=== PATIENT | female | born 1930 | race Caucasian/White ===

== ENCOUNTER 2019-01-09 06:49 | Emergency (ER) | payer MEDICARE ==
[~2019-01-09] VITALS: Ht 165.1 cm; Wt 77.1 kg
--- OUTSIDE RECORDS SUMMARY | ~2019-01-09 | XMS | Encounter Summary ---
Demographics + + + | Address | [address] | | | [place] [address] | + + + | Home Phone | | + + + | Preferred Language | Unknown | + + + | Marital Status | Single | + + + | Shinto Affiliation | Unknown | + + + | Race | Unknown | + + + | Ethnic Group | Other Race | + + + Author + + + | Author | [facility] | + + + | Organization | [facility] | + + + | Address | Unknown | + + + | Phone | Unavailable | + + + Support + + +---------+ + | Name | Relationship | Address | Phone | + + +---------+ + | None None | ECON | Unknown | Unavailable | + + +---------+ + Care Team Providers + +------+ + | Care High Rigger Name | Role | Phone | + +------+ + PCP | Unavailable | + +------+ + Encounter Details +--------+ + + + + | Date | Type | Department | Care Team | Description | +--------+ + + + + | 12/11/ | Procedure - | Epic at [facility] | Amy | Operative Report | | 2015 | | [address] | MD Curly [address] | | | | Transcribed | [place], [place] | [place], [place] | | | | | [phone] | [address] | | | | | | | | +--------+ + + + + Social History + +-------+ +--------+------+ | Tobacco Use | Types | Packs/Day | Years | Date | | | | | Used | | + +-------+ +--------+------+ | Never Assessed | | | | | + +-------+ +--------+------+ + + + | Sex Assigned at | Date Recorded | | | | + + + | Not on file | | + + + + + + + | Job Start Date | Occupation | Industry | + + + + | Not on file | Not on file | Not on file | + + + + + + + + | Travel History | Travel Start | Travel End | + + + + + + | No recent travel history available. | + + documented as of this encounter Plan of Treatment Not on filedocumented as of this encounter Procedures + +--------+ + + + | Procedure Name | Priori | Date/Time | Associated Diagnosis | Comments | | | ty | | | | + +--------+ + + + | OPERATION RECORD | | 12/11/2014 | | Results for this | | | | 9:31 AM | | procedure are in the | | | | PDT | | results section. | + +--------+ + + + | OPERATION RECORD | | 12/11/2014 | | Results for this | | | | 9:13 AM | | procedure are in the | | | | PDT | | results section. | + +--------+ + + + documented in this encounter Results OPERATION RECORD (12/11/2014 9:31 AM PDT) + + | Procedure Note | + + | Lynne Crawford In - 11/02/2016 9:31 AM PDT SURGEON: Burton Álvarez, | | MDASSISTANT: None.ANESTHESIOLOGIST: KRUPA RossiREOPERATIVE | | DIAGNOSISCataract, right eye.POSTOPERATIVE DIAGNOSISCataract, right eye.OPERATIVE | | PROCEDUREPhacoemulsification with insertion of posterior chamber intraocular lens, | | righteye.ANESTHESIA: MAC with topical.COMPLICATIONS: None.INDICATIONS FOR PROCEDURE: | | The patient has a visually significant cataract. The risks, benefits and alternatives of | | the procedure were discussed. Informed consent was obtained.DESCRIPTION OF PROCEDUREThe | | [facility] The | | patient was placed in the supine position. Monitored anesthesiacare with pharmacologic | | support was induced. The operative eye was prepped and draped in the usual | | sterilefashion for intraocular surgery. A lid speculum was placed on theright eye.A | | Supersharp blade was used to create a paracentesis at the 11 o'clock position.Endocoat | | was injected in the anterior chamber. A 2.50-mm microkeratome blade wasused to create a | | temporal clear corneal incision. A cystitome and Utrata forcepswere used to create a | | continuous curvilinear capsulorrhexis.The Amezcua cannula with BSS was used to | | hydrodissect and hydrodelineate the lens.The phacoemulsification handpiece was used to | | remove the lens. Residual cortexwas removed using the irrigation and aspiration | | handpiece. Viscoelastic wasinjected in the capsular bag. A 20.5D SN60WF lens was | | injected in thecapsular bag. Residual viscoelastic was removed using the irrigation | | andaspiration handpiece.The wounds were hydrated and found to be watertight. 0.1 ml of a | | 1:1 mixture of 0.5% preservative free moxifloxacin and balanced salt solution was | | injected into the anterior chamber. The lid speculum wasremoved and the patient's face | | was cleaned and dried. A clear shield was taped over the eye.The patient was returned to | | the recovery room in good condition. | | Burton Álvarez MD | | | | | | | |ANESTHESIA: MAC with topical. | | | |COMPLICATIONS: None. | | | |INDICATIONS FOR PROCEDURE: The patient has a visually significant cataract. The risks, bene fits and alternatives of the procedure were discussed. Informed consent was obtained. | | | | | | | |DESCRIPTION OF PROCEDURE | | | |The patient was brought to the operating room at the [facility] | | | |Center. The patient was placed in the supine position. Monitored anesthesia | | | |care with pharmacologic support was induced. The operative eye was prepped and draped in th e usual sterilefashion for intraocular surgery. A lid speculum was placed on the | | | |right eye. | | | | | | | |A Supersharp blade was used to create a paracentesis at the 11 o'clock position. | | | |Endocoat was injected in the anterior chamber. A 2.50-mm microkeratome blade was | | | |used to create a temporal clear corneal incision. A cystitome and Utrata forceps | | | |were used to create a continuous curvilinear capsulorrhexis. | | | | | | | |The Amezcua cannula with BSS was used to hydrodissect and hydrodelineate the lens. | | | |The phacoemulsification handpiece was used to remove the lens. Residual cortex | | | |was removed using the irrigation and aspiration handpiece. Viscoelastic was | | | |injected in the capsular bag. A 20.5D SN60WF lens was injected in the | | | |capsular bag. Residual viscoelastic was removed using the irrigation and | | | |aspiration handpiece. | | | | | | | |The wounds were hydrated and found to be watertight. 0.1 ml of a 1:1 mixture of 0.5% preser vative free moxifloxacin and balanced salt solution was injected into the anterior chamber. The lid speculum was | | | |removed and the patient's face was cleaned and dried. A clear shield was taped over the eye . | | | | | | | |The patient was returned to the recovery room in good condition. | | | | | | | | | | | | | | | | Burton Álvarez MD | + + OPERATION RECORD (12/11/2014 9:13 AM PDT) + + | Procedure Note | + + | Service Account, Cc Doc In - 11/02/2016 9:31 AM PDT Patient: JESSE BURNETT | | Age: 84 years Sex: Female : 1930 | | Associated Diagnoses: None Author: Curly Reyes MD Basic Information 84 | | yo woman for rt IOL. Hx of htn and hypothyroidism. On levothyroxine andlosartan. | | Review of Systems Respiratory: Negative. Cardiovascular: neg cp or sob. Health | | Status Allergies: Allergic Reactions (Selected)ModerateAspirin- Unknown.Severity Not | | DocumentedAzopt- Unknown.Nonsteroidal antiinflammatory agent- No reactions were | | documented.NSAIDs- Unknown.Timolol- Unknown.Xalatan- Unknown. Current medications: | | (Selected) Inpatient MedicationsOrderedCombo #3 Dilation Drops: 1 drop(s), Soln, OPTH, | | UD, Start date 12/11/14 6:13:00 PDT, 2, dose(s)Combo #3 Dilation Drops: 1 drop(s), Soln, | | OPTH, UD, Start date 12/11/14 6:13:00 PDT, 2, dose(s)Compazine Inj Negar*: 10 mg, Inj, IV | | Push, Once, PRN Nausea/Vomiting, Moderate, PRN Preference N/A, Start date 12/11/14 | | 9:09:00 PDT, 8 hr, Stop date 12/11/14 17:08:00 PDTDemerol Inj Negar*: 12.5 mg, Inj, IV | | Push Procedural, q5min, PRN Pain, Moderate, PRN Preference N/A, Start date 12/11/14 | | 9:09:00 PDT, 8 hr, Stop date 12/11/14 17:08:00 PDTDemerol Inj Negar*: 25 mg, Inj, IV Push | | Procedural, q5min,PRN Pain, Severe, PRN Preference N/A, Start date 12/11/14 9:09:00 PDT, | | 8 hr, Stop date 12/11/14 17:08:00 PDTDemerol Inj Negar: 12.5 mg, Inj, IV Push, UD, PRN | | Shivering, Start date 12/11/14 9:09:00 PDT, Duration 8 hr, Stop date 12/11/14 17:08:00 | | PDTDilaudid Inj Negar*: 0.2 mg, Syringe, IV Push Procedural, q5min, PRN Pain, Mild, PRN | | Preference N/A, Start date 12/11/14 9:09:00 PDT, 8 hr, Stop date 12/11/14 17:08:00 | | PDTDilaudid Inj Negar*: 0.5 mg, Syringe, IV Push Procedural, q5min, PRN Pain, Moderate, | | PRN Preference N/A, Start date 12/11/14 9:09:00 PDT, 8 hr, Stop date 12/11/14 17:08:00 | | PDTEMLA Crm ([facility] Sub: Lido 4%): 1 elieser, Cream, TOP, UD, PRN, Other (see comment), Start | | date 12/11/14 8:28:00 PDT, 1, dose(s), Stop date Limited # of timesLactated Ringers IV | | Negar 1,000 mL: 1,000 mL, IV, 10 mL/hr, Start date 12/11/14 8:28:00 PDTLactated Ringers IV | | Negar 1,000 mL: 1,000 mL, IV, 100 mL/hr, Start date 12/11/14 9:09:00 PDT, Intermittent | | Constant Rate IndLactated Ringers IV Negar 500 mL: 500 mL, IV, Start date 12/11/14 6:13:00 | | PDT, TKO, Intermittent Constant Rate IndNaCl 0.9% Flush: as directed, Syringe, IV Push, | | UD, PRN,Line Patency, Start date 12/11/14 8:28:00 PDTPhenergan Inj Negar*: 6.25 mg, Inj, | | IV Push, Once, PRN Nausea/Vomiting, Moderate, PRN Preference N/A, Start date 12/11/14 | | 9:09:00 PDT, 8 hr, Stop date 12/11/14 17:08:00 PDTReglan Inj Negar*: 10 mg, Inj, IV Push, | | Once, PRN Nausea/vomiting,PRN Preference N/A, Start date 12/11/14 9:09:00 PDT, 8 hr, | | Stop date 12/11/14 17:08:00 PDTSodium Chloride 0.9% Flush: 30 mL, Syringe, IV Push, UD, | | PRN, Line Patency, Start date 12/11/14 9:01:00 PDTSublimaze Inj Negar*: 12.5 mcg, Inj, IV | | Push Procedural, q5min, PRN Pain, Mild, PRN Preference N/A, Start date 12/11/14 9:09:00 | | PDT, 8 hr, Stop date 12/11/14 17:08:00 PDTSublimaze Inj Negar*: 25 mcg, Inj, IV Push | | Procedural, q5min, PRN Pain, Moderate, PRN Preference N/A, Start date 12/11/14 9:09:00 | | PDT, 8 hr, Stop date 12/11/14 17:08:00 PDTSublimaze Inj Negar*: 50 mcg, Inj, IV Push | | Procedural, q5min, PRN Pain, Severe, PRN Preference N/A, Start date 12/11/14 9:09:00 | | PDT, 8 hr, Stop date 12/11/14 17:08:00 PDTVigamox 0.5% - BSS 1:1 Opth Soln: 0.2 mL, | | Soln, OPTH, UD, Start date 12/11/14 6:13:00 PDTXylocaine 1% HCI Inj Negar (use for IV | | start): 0.5mL, Vial, ID, UD, PRN, Other (see comment), Start date 12/11/14 8:28:00 | | PDTZofran Inj Negar*: 4 mg, Inj, IV Push, Once, PRN Nausea/vomiting, PRN Preference N/A, | | Start date 12/11/14 9:09:00 PDT, 8 hr, Stop date 12/11/14 17:08:00 PDTalbuterol 0.083% | | neb for inhalation: 2.5 mg, Soln,NEB, Once, PRN Shortness of breath, Start date 12/11/14 | | 9:09:00 PDT, Duration 8 hr, Stop date 12/11/14 17:08:00 PDTbupivacaine 0.75% PF Opth | | Drop: 1 drop(s), Soln, OPTH, UD, Start date 12/11/14 6:13:00 PDTbupivacaine 0.75% PF | | Opth Drop: 1 drop(s), Soln, OPTH, UD, Start date 12/11/14 6:13:00 PDTlabetalol Inj Negar: | | 5 mg, Inj, IV Push, q5min, PRN hypertension, Start date 12/11/14 9:09:00 PDT, Duration 8 | | dose(s), Stop date Limited # of timesmorphine Inj Negar*: 1 mg, Syringe, IV Push | | Procedural, q5min, PRN Pain, Mild, PRN Preference N/A, Start date 12/11/14 9:09:00 PDT, | | 8 hr, Stop date 12/11/14 17:08:00 PDTmorphine Inj Negar*: 2 mg, Syringe, IV Push | | Procedural, q5min, PRN Pain, Moderate, PRN Preference N/A, Start date 12/11/14 9:09:00 | | PDT, 8 hr, Stop date 12/11/14 17:08:00 PDTmorphine Inj Negar*: 3 mg, Syringe, IV Push | | Procedural, q5min,PRN Pain, Severe, PRN Preference N/A, Start date 12/11/14 9:09:00 PDT, | | 8 hr, Stop date 12/11/14 17:08:00 PDTscopolamine 1.5 mg transdermal film, extended | | release: 1.5 mg, Patch, TD, Once, PRN Nausea/vomiting, Start date 12/11/14 8:28:00 | | PDTDocumented MedicationsDocumentedFlax Seed Oil: Oral, BID, MaintenanceLutein 20 mg | | oral capsule: 1 cap, Oral, Bedtime, MaintenanceVitamin B-12 1000 mcg oral tablet: 1 tab, | | Oral, Daily, MaintenanceZinc: See Instructions, Maintenance, 30 mg Oral MWFcalcium | | carbonate 1000 mg oral tablet, chewable: Chewed, q2hr, Maintenancelevothyroxine 50 mcg | | (0.05 mg) oral tablet: 1 tab, Oral, Daily, Maintenancelosartan 50 mg oral tablet: 1 tab, | | Oral, BID, Maintenance Physical Examination VS/Measurements Vital Signs/Measurement | | Progress Note-PN 12/11/2014 08:42 PDTPrimary Pain Wcucilpyb294/15/2015 08:07 | | PDTHeight/Length Ksgdhxkw663 cmWeight Ticpsbqd61.3 kgTemperature Temporal Aylydt46.4 | | DegCPeripheral Pulse Rate66 bpmRespiratory Rate16 breaths/minuteSystolic Blood | | Sirhzkdk176 mmHg HIDiastolic Blood Btvcavxk59 mmHgMean Arterial Pressure, Xkzd732 | | xkTqCiL260 % , Vitals Temp BP MAP Pulse RR SpO2 HAE566/15 08:07 36.4 155/82 106 66 16 | | 98% ---Vital Signs are the last 20 in the past 24 hours. , Measurements from flowsheet : | | Measurements 12/11/201408:07 PDTHeight/Length Klfgvlbh848 cmWeight Qmksmagx12.3 | | kgKilograms to sufraj891.4 lbWeight Ywtuic73.3 kgBody Mass Index Rfbdnokx44.55 | | kg/m212/10/2014 14:14 PDTUsual Wiiuxu531 cmUsual Monjib90.57 kg Airway: Mallampati | | classification: I. Distance: Adequate. Mouth: Dentures ( Upper and lower dentures | | ). Respiratory: Lungs are clear to auscultation. Cardiovascular: Regular rhythm. | | Class 3 - Severe systemic disease Plan Anesthesia: Anesthesia MAC. Additional Info | | Anesthetic Plan Discussed, and Patient appears to understand. Risks Discussed Nausea, | | and Vomiting. Consent Informed consent was given. | | | |NaCl 0.9% Flush: as directed, Syringe, IV Push, UD, PRN,Line Patency, Start 12/11/14 8 :28:00 PDT | | | |Phenergan Inj Negar*: 6.25 mg, Inj, IV Push, Once, PRN Nausea/Vomiting, Moderate, PRN Prefere nce N/A, Start date 12/11/14 9:09:00 PDT, 8 hr, Stop date 12/11/14 17:08:00 PDT | | | |Reglan Inj Negar*: 10 mg, Inj, IV Push, Once, PRN Nausea/vomiting,PRN Preference N/A, Start d 12/11/14 9:09:00 PDT, 8 hr, Stop date 12/11/14 17:08:00 PDT | | | |Sodium Chloride 0.9% Flush: 30 mL, Syringe, IV Push, UD, PRN, Line Patency, Start 11/27 9:01:00 PDT | | | |Sublimaze Inj Negar*: 12.5 mcg, Inj, IV Push Procedural, q5min, PRN Pain, Mild, PRN Preferenc e N/A, Start date 12/11/14 9:09:00 PDT, 8 hr, Stop date 12/11/14 17:08:00 PDT | | | |Sublimaze Inj Negar*: 25 mcg, Inj, IV Push Procedural, q5min, PRN Pain, Moderate, PRN Prefere nce N/A, Start 12/11/14 9:09:00 PDT, 8 hr, Stop date 12/11/14 17:08:00 PDT | | | |Sublimaze Inj Negar*: 50 mcg, Inj, IV Push Procedural, q5min, PRN Pain, Severe, PRN Preferenc e N/A, Start date 12/11/14 9:09:00 PDT, 8 hr, Stop date 12/11/14 17:08:00 PDT | | | |Vigamox 0.5% - BSS 1:1 Opth Soln: 0.2 mL, Soln, OPTH, UD, Start date 12/11/14 6:13:00 PDT | | | |Xylocaine 1% HCI Inj Negar (use for IV start): 0.5mL, Vial, ID, UD, PRN, Other (see comment), Start date 12/11/14 8:28:00 PDT | | | |Zofran Inj Negar*: 4 mg, Inj, IV Push, Once, PRN Nausea/vomiting, PRN Preference N/A, Start d ate 12/11/14 9:09:00 PDT, 8 hr, Stop date 12/11/14 17:08:00 PDT | | | |albuterol 0.083% neb for inhalation: 2.5 mg, Soln,NEB, Once, PRN Shortness of breath, Start date 12/11/14 9:09:00 PDT, Duration 8 hr, Stop date 12/11/14 17:08:00 PDT | | | |bupivacaine 0.75% PF Opth Drop: 1 drop(s), Soln, OPTH, UD, Start date 12/11/14 6:13:00 PDT | | | |bupivacaine 0.75% PF Opth Drop: 1 drop(s), Soln, OPTH, UD, Start date 12/11/14 6:13:00 PDT | | | |labetalol Inj Negar: 5 mg, Inj, IV Push, q5min, PRN hypertension, Start date 12/11/14 9:09:00 PDT, Duration 8 dose(s), Stop date Limited # of times | | | |morphine Inj Negar*: 1 mg, Syringe, IV Push Procedural, q5min, PRN Pain, Mild, PRN Preference N/A, Start date 12/11/14 9:09:00 PDT, 8 hr, Stop date 12/11/14 17:08:00 PDT | | | |morphine Inj Negar*: 2 mg, Syringe, IV Push Procedural, q5min, PRN Pain, Moderate, PRN Prefer ence N/A, Start date 12/11/14 9:09:00 PDT, 8 hr, Stop date 12/11/14 17:08:00 PDT | | | |morphine Inj Negar*: 3 mg, Syringe, IV Push Procedural, q5min,PRN Pain, Severe, PRN Preferenc e N/A, Start date 12/11/14 9:09:00 PDT, 8 hr, Stop date 12/11/14 17:08:00 PDT | | | |scopolamine 1.5 mg transdermal film, extended release: 1.5 mg, Patch, TD, Once, PRN Nausea/ vomiting, Start date 12/11/14 8:28:00 PDT | | | |Documented Medications | | | |Documented | | | |Flax Seed Oil: Oral, BID, Maintenance | | | |Lutein 20 mg oral capsule: 1 cap, Oral, Bedtime, Maintenance | | | |Vitamin B-12 1000 mcg oral tablet: 1 tab, Oral, Daily, Maintenance | | | |Zinc: See Instructions, Maintenance, 30 mg Oral MWF | | | |calcium carbonate 1000 mg oral tablet, chewable: Chewed, q2hr, Maintenance | | | |levothyroxine 50 mcg (0.05 mg) oral tablet: 1 tab, Oral, Daily, Maintenance | | | |losartan 50 mg oral tablet: 1 tab, Oral, BID, Maintenance | | | | | | | |Physical Examination | | | |VS/Measurements | | | |Vital Signs/Measurement Progress Note-PN | | | |12/11/2014 08:42 PDTPrimary Pain Hpozjmbpe892/15/2015 08:07 PDTHeight/Length Acpqvxpe429 cm Weight Jkxvszuw13.3 kgTemperature Temporal Avfysh54.4 DegCPeripheral Pulse Rate66 bpmRespira tory Rate16 | |breaths/minuteSystolic Blood Gkdulxiy147 mmHg HIDiastolic Blood Sjipmcqo77 mmHgMean Arteri al Pressure, Hhed771 ztWpRcQ168 % | | | |, | | | |Vitals Temp BP MAP Pulse RR SpO2 FIO2 | | | |12/11 08:07 36.4 155/82 106 66 16 98% --- | | | |Vital Signs are the last 20 in the past 24 hours. | | | | | | | | , Measurements from flowsheet : Measurements | | | |12/11/201408:07 PDTHeight/Length Dwjflaza546 cmWeight Pltrebjk22.3 kgKilograms to .4 lbWeight Fnrfjh77.3 kgBody Mass Index Airqvzyt64.55 kg/m212/10/2014 14:14 PDTUsual Height 163 cmUsual Hiezhq96.57 kg | | | | | | | |Airway: | | | | Mallampati classification: I. | | | | Distance: Adequate. | | | | Mouth: Dentures ( Upper and lower dentures ). | | | |Respiratory: Lungs are clear to auscultation. | | | |Cardiovascular: Regular rhythm. | | | |Class 3 - Severe systemic disease | | | | | | | |Plan | | | |Anesthesia: | | | |Anesthesia MAC. | | | |Additional Info Anesthetic Plan Discussed, and Patient appears to understand. | | | |Risks Discussed Nausea, and Vomiting. | | | |Consent Informed consent was given. | + + documented in this encounter Visit Diagnoses Not on filedocumented in this encounter"
--- OUTSIDE RECORDS SUMMARY | ~2019-01-09 | XMS | Encounter Summary ---
Demographics + + + | Address | [address] | | | [place] [address] | + + + | Home Phone | | + + + | Preferred Language | Unknown | + + + | Marital Status | Single | + + + | Congregation Affiliation | Unknown | + + + | Race | Unknown | + + + | Ethnic Group | Other Race | + + + Author + + + | Organization | Unknown | + + + | Address | Unknown | + + + | Phone | Unavailable | + + + Support + + +---------+ + | Name | Relationship | Address | Phone | + + +---------+ + | None None | ECON | Unknown | Unavailable | + + +---------+ + Care Team Providers + +------+ + | Care Manager Culture Name | Role | Phone | + +------+ + PCP | Unavailable | + +------+ + Encounter Details +--------+ + + + + | Date | Type | Department | Care Team | Description | +--------+ + + + + | 08/11/ | [facility] | | | | | 2005 | Document-Sc | | | | | | anned | | | | +--------+ + + [...] Not on filedocumented as of this encounter Visit Diagnoses Not on filedocumented in this encounter"
--- OUTSIDE RECORDS SUMMARY | ~2019-01-09 | XMS | Encounter Summary ---
Demographics + + + | Address | [address] | | | [place] [address] | + + + | Home Phone | | + + + | Preferred Language | Unknown | + + + | Marital Status | Single | + + + | Protestant Affiliation | Unknown | + + + [...] Team Providers + +------+ + | Care Banquet Set Up Person Name | Role | Phone | + +------+ + PCP | Unavailable | + +------+ + Encounter Details +--------+ + + + + | Date | Type | Department | Care Team | Description | +--------+ + + + + | 09/22/ | [facility] | | | | | [...]
--- OUTSIDE RECORDS SUMMARY | ~2019-01-09 | XMS | Clinical Summary ---
Demographics + + + | Address | [address] | | | [place] [address] | + + + | Home Phone | | + + + | Preferred Language | Unknown | + + + | Marital Status | Single | + + + | Zoroastrian Affiliation | Unknown | + + + | Race | Unknown | + + + | Ethnic Group | Other Race | + + + Author + + + | Author | [facility] | + + + | Organization | [facility] | + + + | Address | Unknown | + + + | Phone | Unavailable | + + + Support + + +---------+ + | Name | Relationship | Address | Phone | + + +---------+ + | None None | ECON | Unknown | Unavailable | + + +---------+ + Care Team Providers + +------+ + | Care Admissions Specialist Name | Role | Phone | + +------+ + PCP | Unavailable | + +------+ + Source Comments [facility] is fully live on both [facility] and [facility] InPatient.[facility] Allergies + + + + + + | Active Allergy | Reactions | Severity | Noted | Comments | | | | | Date | | + + + + + + | Clarification Needed | | | 10/12/19 | Anti | | | | | 06 | inflammatories. Skin | | | | | | | | | | | | Rashes/Hives;Nausea/ | | | | | | Vomiting/Diarrhea | + + + + + + Medications Not on file Active Problems +---------+ + | Problem | Noted Date | +---------+ + | Anemia | 09/27/2005 | +---------+ + + + | Overview: | | Primary | | diagnosis | | | | ICD10 | + + Social History + +-------+ +--------+------+ [...] recent travel history available. | + + Last Filed Vital Signs Not on file Plan of Treatment + + + + + | Health Maintenance | Due Date | Last Done | Comments | + + + + + | Pneumococcal | | | | | vaccination (1 of 2 | 5 | | | | - PCV13) | | | | + + + + + | Influenza (Flu) | | | | | vaccination (#1) | 9 | | | + + + + + Results Not on filefrom Last 3 Months Insurance + +--------+ +--------+ + +------+ | Payer | Benefi | Subscriber | Effect | Phone | Address | Type | | | t Plan | ID | lianna | | | | | | / | | Dates | | | | | | Group | | | | | | + +--------+ +--------+ + +------+ | [employer] | PROVID | xxxxxxxxxxx | | [phone] | [address] | HMO | | | [place] | | [phone] | | | [address] | | esent | | [place], | | | | | | | | [place] [address] | | | | MEDICA | | | | | | | | RE | | | | | | + +--------+ +--------+ + +------+ + +--------+ +--------+ + + | Guarantor Name | Accoun | Relation to | Date | Phone | Billing Address | | | t Type | Patient | of | | | | | | | | | | + +--------+ +--------+ + + | Sarina Zimmerman I | Person | Self [birth year] | [address] | | | al/Fam | | 1931 | [phone] | [place] | | | [place]a | | | [address] ([place]) | [address] | + +--------+ +--------+ + +"
--- OUTSIDE RECORDS SUMMARY | ~2019-01-09 | XMS | Encounter Summary ---
Demographics + + + | Address | [address] | | | [place] [address] | + + + | Home Phone | | + + + | Preferred Language | Unknown | + + + | Marital Status | Single | + + + | Christian Affiliation | Unknown | + + + | Race | Unknown | + + + | Ethnic Group | Other Race | + + + Author + + + | Author | [facility] | + + + | Organization | [facility] | + + + | Address | Unknown | + + + | Phone | Unavailable | + + + Support + + +---------+ + | Name | Relationship | Address | Phone | + + +---------+ + | None None | ECON | Unknown | Unavailable | + + +---------+ + Care Team Providers + +------+ + | Care Hand Singer Name | Role | Phone | + +------+ + PCP | Unavailable | + +------+ + Encounter Details +--------+ + + + + | Date | Type | Department | Care Team | Description | +--------+ + + + + | 07/18/ | Ancillary | [facility] | | | | 2005 | Registratio | Practice [address] | | | | | n | [facility] | | | | | | [place] [address] | | | | | | [phone] | | | +--------+ + + + [...]
--- OUTSIDE RECORDS SUMMARY | ~2019-01-09 | XMS | Encounter Summary ---
Demographics + + + | Address | [address] | | | [place] [address] | + + + | Home Phone | | + + + | Preferred Language | Unknown | + + + | Marital Status | Single | + + + | Synagogue Affiliation | Unknown | + + + | Race | Unknown | + + + | Ethnic Group | Other Race | + + + Author + + + | Author | [facility] | + + + | Organization | [facility] | + + + | Address | Unknown | + + + | Phone | Unavailable | + + + Support + + +---------+ + | Name | Relationship | Address | Phone | + + +---------+ + | None None | ECON | Unknown | Unavailable | + + +---------+ + Care Team Providers + +------+ + | Care Graphics Intern Name | Role | Phone | + +------+ + PCP | Unavailable | + +------+ + Encounter Details +--------+ + + + + | Date | Type | Department | Care Team | Description | +--------+ + + + + | 07/18/ | Ancillary | [facility] | | | | 2005 | Registratio | Practice [address] | | | | | n | [facility] | | | | | | [place] [address] | | | | | | [phone] | | | +--------+ + + + [...]
--- OUTSIDE RECORDS SUMMARY | ~2019-01-09 | XMS | Encounter Summary ---
Demographics + + + | Address | [address] | | | [place] [address] | + + + | Home Phone | | + + + | Preferred Language | Unknown | + + + | Marital Status | | + + + | Islam Affiliation | Unknown | + + + | Race | Unknown | + + + | Ethnic Group | Unknown | + + + Author + + + | Author | [facility] | | | and [place] | + + + | Organization | [facility] | | | and [place] | + + + | Address | Unknown | + + + | Phone | Unavailable | + + + Support + + + + + | Name | Relationship | Address | Phone | + + + + + | Kaley Zimmerman | ECON | [place] | | | | | [address] | | + + + + + Care Team Providers + +------+ + | Care Mergers And Acquisitions Banker Name | Role | Phone | + +------+ + | Seun Bojorquez MD | PCP | | + +------+ + Reason for Visit +--------+ + | Reason | Comments | +--------+ + | Other | Needs appointment, declined plans to see Cardiac Exercise Specialist in | | | [place] | +--------+ + Encounter Details +--------+ + + + + | Date | Type | Department | Care Team | Description | +--------+ + + + + | 12/25/ | Telephone | [facility] | Aurelio Ceballos MD | Other (Needs | | 2019 | | CARDIOLOGY [address] | appointment, | | | | [place], | [place] | declined plans to | | | | [place] [address] | [address] | see Cardiac Exercise Specialist in | | | | [phone] | | [place]) | +--------+ + + + + Social [...]
--- OUTSIDE RECORDS SUMMARY | ~2019-01-09 | XMS | Encounter Summary ---
Demographics + + + | Address | [address] | | | [place] [address] | + + + | Home Phone | | + + + | Preferred Language | Unknown | + + + | Marital Status | Single | + + + | Pentecostal Affiliation | Unknown | + + + [...] Team Providers + +------+ + | Care Talent Sourcing Specialist Name | Role | Phone | + +------+ + PCP | Unavailable | + +------+ + Encounter Details +--------+ + + + + | Date | Type | Department | Care Team | Description | +--------+ + + + + | 10/06/ | [facility] | | | | | 2006 | [facility] | | | | | [...]
--- OUTSIDE RECORDS SUMMARY | ~2019-01-09 | XMS | Encounter Summary ---
Demographics + + + | Address | [address] | | | [place] [address] | + + + | Home Phone | | + + + | Preferred Language | Unknown | + + + | Marital Status | Single | + + + | Latter Day Affiliation | Unknown | + + + [...] Team Providers + +------+ + | Care Rn Med Surg Name | Role | Phone | + [...]
--- OUTSIDE RECORDS SUMMARY | ~2019-01-09 | XMS | Encounter Summary ---
Demographics + + + | Address | [address] | | | [place] [address] | + + + | Home Phone | | + + + | Preferred Language | Unknown | + + + | Marital Status | | + + + | Mosque Affiliation | Unknown | + + + | Race | Unknown | + + + | Ethnic Group | Unknown | + + + Author + + + | Author | [facility] | | | and [place] | + + + | Organization | [facility] | | | and [place] | + + + | Address | Unknown | + + + | Phone | Unavailable | + + + Support + + + + + | Name | Relationship | Address | Phone | + + + + + | Kaley Zimmerman | ECON | [place] | | | | | [phone] | | + + + + + Care Team Providers + +------+ + | Care Health Screener Name | Role | Phone | + +------+ + | Seun Bojorquez MD | PCP | | + +------+ + Reason for Visit Auth/Cert +--------+--------+ + + + + | Status | Reason | Specialty | Diagnoses / | Referred By | Referred To | | | | | Procedures | Contact | Contact | +--------+--------+ + + + + | | | | Diagnoses | | | | | | | Chest Pain | | | +--------+--------+ + + + + Encounter Details +--------+ + + + + | Date | Type | Department | Care Team | Description | +--------+ + + + + | 12/18/ | Hospital | [facility] | Francois, | NSTEMI (non-ST | | 2019 - | Encounter | [facility] | MD Niru [address] | elevated myocardial | | | | [address] [place] | [address] [place] | infarction) ([facility]); | | 12/20/ | | [place] [address] | [place] [address] | Essential | | 2019 | | [phone] | [phone] | hypertension; | | | | | | Hypothyroidism, | | | | | Amos Duncan MD | unspecified type; | | | | | [address] | Glaucoma, | | | | | [place], [place] | unspecified glaucoma | | | | | [address] | type, unspecified | | | | | | laterality | +--------+ + + + + Social [...] + + documented as of this encounter Last Filed Vital Signs + + + + + | Vital Sign | Reading | Time Taken | Comments | + + + + + | Blood Pressure | 153/75 | 12/20/2018 7:53 AM | | | | | PDT | | + + + + + | Pulse | 82 | 12/20/2018 7:53 AM | | | | | PDT | | + + + + + | Temperature | 36.3 C (97.4 F) | 12/20/2018 7:53 AM | | | | | PDT | | + + + + + | Respiratory Rate | 20 | 12/20/2018 7:53 AM | | | | | PDT | | + + + + + | Oxygen Saturation | 95% | 12/20/2018 7:53 AM | | | | | PDT | | + + + + + | Inhaled Oxygen | - | - | | | Concentration | | | | + + + + + | Weight | 76 kg (167 lb 8.8 | 12/20/2018 5:18 AM | | | | oz) | PDT | | + + + + + | Height | 165.1 cm (5' 5") | 12/18/2018 1:28 AM | | | | | PDT | | + + + + + | Body Mass Index | 27.88 | 12/18/2018 1:28 AM | | | | | PDT | | + + + + + documented in this encounter Discharge Summaries Amos Duncan MD - 12/20/2018 8:32 AM PDTFormatting of this note might be different fr om the original. [place] H[facility]PITALIST DISCHARGE SUMMARY Pt. Name/Age/: Sarina Zimmerman 88 y.o. 1930 Date of Admission: 12/18/2018 Date of Discharge: 12/20/2018 Admitting Physician: Niru Parrish MD Primary Care Provider: Seun Bojorquez MD Discharging Physician: Amos Duncan MD DISCHARGE DIAGNOSES: Active Hospital Problems Diagnosis NSTEMI (non-ST elevated myocardial infarction) Resolved Hospital Problems No resolved problems to display. DISCHARGE MEDICATIONS: Discharge Medications New Medications Details atorvaSTATin 80 MG tablet Take 1 tablet by mouth nightly. aka: LIPITOR clopidogrel 75 mg tablet Take 1 tablet by mouth Daily. aka: PLAVIX metoprolol succinate 50 mg 24 hr tablet Take 1 tablet by mouth Daily. aka: TOPROL-XL Changed Medications Details losartan 50 mg tablet Take 1 tablet by mouth Daily. What changed: when to take this aka: COZAAR Unchanged Medications Details acetaminophen 500 mg tablet Take 500 mg by mouth every 6 hours as needed for Pain. aka: TYLENOL brimonidine 0.1% Soln Place 1 drop to affected eye 2 times daily aka: ALPHAGAN P levothyroxine 50 mcg tablet Take 50 mcg by mouth every morning (before breakfast). aka: SYNTHROID UNABLE TO FIND Orrtanna eye drops: 1 drop in each eye as needed for dry eyes HOSPITAL COURSE: Please refer to the H&P for full details and the most recent rounding rounding (progress) n ote. NSTEMI Presented at OSH with chest pain. Had multiple episodes. Trop 0.217 at OSH. EKG with no acu te ischemic changes. CXR at OSH with no opacities. Pt allergic to aspirin s/p Lovenox 1 mg/k g x1. Trop 4.[address] Ceballos performed LHC yesterday, PCI x3 in Circ, LAD and RCA. Patient will continue atorvastatin, plavix and metoprolol at time of discharge. No ASA due t o allergy. Patient declined home health and physical therapy. She understood the risk of fal ling including long-term disability and . Uncontrolled Hypertension Hypertensive at outside hospital and here, she only took her morning dose of losartan. Impr kayleigh with losartan and metoprolol. Urinary retention Patient had limited voiding last night. Straight cath performed with 1 liter. Patient then had bladder scans to monitor. Likely 2/2 to sedation from [facility]. Resolved at time of discharge . Gen: AAOx3 Card: S1, S2 present, no murmurs Pulm: CTA throughout Abd: Soft, NT Extremities: No LE edema Neuro: No focal deficit Psych: Normal affect Most recent weight: Input and output for last 24hrs: Wt Readings from Last 1 Encounters: 12/20/18 76 kg (167 lb 8.8 oz) I/O last 24 Hours: In: 710 [P.O.:710] Out: 650 [Urine:650] Vitals Ranges: Temp: [35.8 C (96.4 F)-36.7 C (98 F)] 36.3 C (97.4 F) Pulse: [62-82] 82 Resp: [14-20] 20 BP: (114-153)/(55-75) 153/75 Vitals: Temp: 36.3 C (97.4 F) BP: 153/75 Pulse: 82 Resp: 20 SpO2: 95 % SpO2 95 % on nasal cannula at flow rate 3L/min PHYSICAL EXAM: Patient seen and examined by me on discharge day PROCEDURES AND CONSULTS: Procedures [facility] Consults Card PENDING RESULTS: DISPOSITION AND DISCHARGE INSTRUCTIONS: Follow-up Information Seun Bojorquez MD In 1 week. Specialty: Internal Medicine Contact information: [address] [facility] [address] Aurelio Ceballos MD In 1 week. Specialties: Interventional Cardiology, Cardiology Contact information: [address] [facility] [address] Condition: Patient being discharged with condition improved Diet: Card Less than 30 minutes were spent on discharge and coordination of post-hospital care. Electronically signed by: Amos Duncan MD, 12/20/2018 8:32 [facility] Portions of this chart may have been created with [employer] voice recognition software. Occasi onal wrong-word or sound-alike substitutions may have occurred due to the inherent becerra itations of voice recognition software. Please read the chart carefully and recognize, using context, where these substitutions have occurred documented in this encounter Discharge Instructions Instructions Mackenzie Del Castillo, PharmD - 12/20/2018 Ms. Zimmerman, You presented with chest pain. Your labs were elevated for concern for a heart attack. You were given blood thinners. On 12/18/18, you had a left heart catheterization performed where 3 stents were placed in 3 different vessels. You initially could not void, but following wilkerson ve been shown to urinate adequately. This was likely secondary to the sedation used during t he procedure. Please follow with your primary care doctor and cardiology. Discharge Instructions for Heart Attack You have had a heart attack (acute myocardial infarction). A heart attack occurs when a ves liliana that sends blood to your heart suddenly becomes blocked. This causes your heart not to w ork as well as it should. Follow these guidelines for home care and lifestyle changes. Home care Take your medicines exactly as directed. Don t skip doses. Talk with your healthcare gloria muñiz if your medicines aren't working for you. Together you can come up with another brianna tment plan. Remember that recovery after a heart attack takes time. Plan to rest for at least 4 to 8 weeks while you recover. Then return to normal activity when your doctor says it s OK. Ask your doctor about joining a heart rehabilitation program. This can help strengthen y our heart and lungs and give you more energy and confidence. Tell your doctor if you are feeling depressed. Feelings of sadness are common after a he art attack. But it is important to speak to someone or seek counselingif you are feeling o verwhelmed by these feelings. Call 911 right away if youhavechest pain or pain that goes to your shoulder, neck, o r back.Don't drive yourself to the hospital. Ask your family members to learn CPR. This is an important skill that can save lives whe n it's needed. Learn to take your own blood pressure and pulse. Keep a record of your results. Ask your doctor when you should seek emergency medical attention. He or she will tell you which bloo d pressure reading is dangerous. Lifestyle changes Your heart attack might have been caused by cardiovascular disease. Your healthcare provide r will work with you to make changes to your lifestyle. This will help the heart disease fro m getting worse. These changes will most likely be a combination of diet and exercise. Diet Your healthcare provider will tell you what changes you need to make to your diet. You may need to see a registered dietitian for help with these diet changes. These changes may inclu de: Cutting back on how much fat and cholesterol you eat Cutting back on how much salt (sodium) you eat, especially if you have high blood pressu re Eating more fresh vegetables and fruits Eating lean proteins such as fish, poultry, beans, and peas, and eating less red meat an d processed meats Using low-fat dairy products Using vegetable and nut oils in limited amounts Limiting how many sweets and processed foods such as chips, cookies, and baked goods you eat Limiting how often you eat out. And when you do eat out, making better food choices. Not eating fried or greasy foods, or foods high in saturated fat Exercise Your healthcare provider may tell you to get more exercise if you haven't been physically a ctive. Depending on your case, your provider may recommend that you get moderate to vigorous physical activity for at least 40 minutes each day, and for at least 3 to 4 days each week. A few examples of moderate to vigorous activity include: Walking at a brisk pace, about 3 to 4 miles per hour Jogging or running Swimming or water aerobics Hiking Dancing Martial arts Tennis Riding a bicycle or stationary bike Other changes Your healthcare provider may also recommend that you: Lose weight. If youare overweight or obese, your provider will work with you to lose e xtra pounds. Making diet changes and getting more exercise can help. A good goal is to lose your 10% of your body weight in one year. Stop smoking. Sign up for a stop-smoking program to make it more likely for you to quit for good. You can join a stop-smoking support group. Or ask your doctor about nicotine repla cement products. Learn to manage stress. Stress management techniques to help you deal with stress in you r home and work life. This will help you feel better emotionally and ease the strain on your heart. Follow-up Make a follow-up appointment as directed. Call 911 Call 911 right awayif you have: Chest pain that goes to your neck, jaw, back, or shoulder Shortness of breath When to call your healthcare provider Callyour healthcare provider right away if you have: Lightheadedness, dizziness, or fainting Feeling of irregular heartbeat or fast pulse Date Last Reviewed: 11/28/201519990326-1677 [employer]. [address] [place] [address], [place] [address]. All righ ts reserved. This information is not intended as a substitute for professional medical care. Always follow your healthcare professional's instructions. Heart Attack: Back at Home Once you re home, your goal for the first week or so is to take it easy. Then, slowly ret urn to regular activities. It may take about 4 to 8 weeks to get back to your normal routine . To ease the transition, allow yourself to rely on family and friends for support, and be e asy on yourself. Let friends and family support you Don t try to do it all alone. Ask family or friends for help. They may be glad to do some thing to show their concern. For instance: Let others help with chores, such as washing dishes, preparing meals, or buying grocerie s. Ask a family member or friend to join you in relaxing activities, such as playing games or watching movies. Invite a family member or friend on your appointments. Be easy on yourself As you begin your recovery, don t push yourself too hard. Remember, you re healing phys ically and emotionally. Keep these tips in mind: Take your medicines as prescribed by your doctor. Avoid activities that may cause chest pain or shortness of breath. Avoid exertion, excitement, and exposure to cold after a heavy meal. If you re feeling low, don t beat yourself up. Take your recovery one day at a time and don t give in to these feelings by staying in bed. Be sure to get up and get dressed e ach morning. Partake in activities that are easy but get you slowly back into the routine. Talk to someone every day. For family and friends Help your loved one ease into recovery: Offer to drive your loved one to medical appointments. Help your loved one remember to take medicines. Encourage your loved one to slowly be more independent. Spend time relaxing with your loved one. You don t have to just sit around, try going for a walk. Spend time discussing other matters outside of health, Date Last Reviewed: 07/29/201519998053-4850 [employer]. [address] [place] [address]. All righ ts reserved. This information is not intended as a substitute for professional medical care. Always follow your healthcare professional's instructions. documented in this encounter Medications at Time of Discharge + + + +---------+ + + | Medication | Sig | Dispensed | Refills | Start | End Date | | | | | | Date | | + + + +---------+ + + | acetaminophen | Take 500 mg by mouth | | 0 | | | | (TYLENOL) 500 mg | every 6 hours as | | | | | | tablet | needed for Pain. | | | | | + + + +---------+ + + | atorvaSTATin | Take 1 tablet by | 30 | 1 | 12/21/19 | | | (LIPITOR) 80 MG | mouth nightly. | tablet | | 19 | | | tablet | | | | | | + + + +---------+ + + | brimonidine | Place 1 drop to | | 0 | | | | (ALPHAGAN P) 0.1% | affected eye 2 times | | | | | | SOLN | daily | | | | | + + + +---------+ + + | clopidogrel | Take 1 tablet by | 30 | 1 | 12/21/19 | | | (PLAVIX) 75 mg | mouth Daily. | tablet | | 19 | | | tablet | | | | | | + + + +---------+ + + | levothyroxine | Take 50 mcg by mouth | | 0 | | | | (SYNTHROID) 50 mcg | every morning | | | | | | tablet | (before breakfast). | | | | | + + + +---------+ + + | losartan (COZAAR) | Take 1 tablet by | 30 | 1 | 12/21/19 | | | 50 mg tablet | mouth Daily. | tablet | | 19 | | + + + +---------+ + + | metoprolol | Take 1 tablet by | 30 | 1 | 12/21/19 | | | succinate | mouth Daily. | tablet | | 19 | | | (TOPROL-XL) 50 mg 24 | | | | | | | hr tablet | | | | | | + + + +---------+ + + | UNABLE TO FIND | Orrtanna eye drops: 1 | | 0 | | | | | drop in each eye as | | | | | | | needed for dry eyes | | | | | + + + +---------+ + + documented as of this encounter Progress Notes Esthela Goldman RN - 12/20/2018 2:25 PM PDTDischarge instructions reviewed by pharmacy. A ll questions answered. Victoriano Lance, Regional Marketing Director - 12/20/2018 11:29 AM Thelma Gordillo Erasmo was admitt ed for NSTEMI and discharged home today (12/20/2018) Taught AVS education to patient. Education was focused on new medications and/or changed me dications. I explained indication, how to take, possible side effects, when to contact physi chavo, and monitor parameters. The patient was encouraged to make a follow-up appointment with PCP and with fire extinguisher repairer inspector. The patient verbalized understanding of the above and all questions were answered. Pharmaci st will follow-up with patient in one to two business days. Patient was provided with a myles nciled discharge medication list as part of their AVS instructions. Encouraged patient to sh are medication list with healthcare providers and keep list current. Victoriano Walton, Regional Marketing Director 12/20/2018 11:29 Amos Trevino MD - 12/19/2018 7:41 AM PD T [place] HOSPITALIST PROGRESS NOTE Patient: Sarina Zimmerman : 1930: Age: 88 y.o. MedRec: [id number] Admission date: 12/18/2018 Hospital day # : 1 Physician author: Amos Duncan MD Today: 12/19/2018 Assessment and Hospital Course Active Hospital Problems Diagnosis NSTEMI (non-ST elevated myocardial infarction) Resolved Hospital Problems No resolved problems to display. Plan NSTEMI Presented at OSH with chest pain. Had multiple episodes. Trop 0.217 at OSH. EKG with no acu te ischemic changes. CXR at OSH with no opacities. Pt allergic to aspirin s/p Lovenox 1 mg/k g x1. Trop 4.2 following LHC - Dr. Ceballos performed LHC yesterday, PCI x3, will finalize report in afternoon - Cont atorvastatin - Cont metoprolol Uncontrolled Hypertension Hypertensive at outside hospital and here, she only took her morning dose of losartan -Adjusted to losartan 50mg daily and metoprolol 50mg ER, BP improved today Urinary retention Patient had limited voiding last night. Straight cath performed with 1 liter -Bladder scan per shift Hypothyroidism -Cont home Synthroid PPX: SCD FEN:Card Disp: Lives alone, PT/OT ordered, d/c in afternoon or tomorrow pending voiding trial/PT rec s Current Facility-Administered Medications: acetaminophen 650 mg Oral Q4H PRN non-formulary medication 1 drop Ophthalmic BID atorvaSTATin 80 mg Oral Nightly clopidogrel 75 mg Oral Daily influenza IM vaccine 0.5 mL Intramuscular One Time Vaccine lidocaine 1%-EPINEPHrine 1:100,000 5 mL Infiltration Once PRN losartan 50 mg Oral Daily metoprolol succinate 50 mg Oral Daily nitroglycerin 0.4 mg Sublingual Q5 Min PRN ondansetron 4 mg Oral Q6H PRN ondansetron 4 mg Intravenous Q6H PRN oxyCODONE 5-10 mg Oral Q4H PRN polyethylene glycol 17 g Oral Daily PRN Allergies: Allergies Allergen Reactions Aspirin Hives Current Medications: Current Facility-Administered Medications Medication Dose Route Frequency Provider Last Rate Last Dose acetaminophen (TYLENOL) tablet 650 mg 650 mg Oral Q4H PRN Aurelio Ceballos MD 650 mg at 12/19/18 0627 Alphagan 0.1% (Brimonidine tartrate) opthalmic solution - patient own medication 1 elian p Ophthalmic BID Aurelio Ceballos MD 1 drop at 12/18/181 atorvaSTATin (LIPITOR) tablet 80 mg 80 mg Oral Nightly Aurelio Ceballos MD 80 mg at 0 clopidogrel (PLAVIX) tablet 75 mg 75 mg Oral Daily Aurelio Ceballos MD 75 mg at 9 0259 influenza quadrivalent (FLUZONE, FLUARIX, AFLURIA QUADRIVALENT) vaccine injection (syri nge) 0.5 mL 0.5 mL Intramuscular One Time Vaccine Niru Parrish MD lidocaine 1%-EPINEPHrine 1:100,000 injection 5 mL 5 mL Infiltration Once PRN Aurelio Ceballos MD losartan (COZAAR) tablet 50 mg 50 mg Oral Daily Aurelio Ceballos MD metoprolol succinate (TOPROL-XL) ER tablet 50 mg 50 mg Oral Daily Aurelio Ceballos MD 5 0 mg at 12/18/181940 nitroglycerin (NITROSTAT) SL tablet 0.4 mg 0.4 mg Sublingual Q5 Min PRN Aurelio Ceballos MD ondansetron (ZOFRAN ODT) disintegrating tablet 4 mg 4 mg Oral Q6H PRN Aurelio Ceballos MD ondansetron (ZOFRAN) injection 4 mg 4 mg Intravenous Q6H PRN Aurelio Ceballos MD 4 mg a t 12/18/182 oxyCODONE (ROXICODONE) tablet 5-10 mg 5-10 mg Oral Q4H PRN Aurelio Ceballos MD polyethylene glycol (MIRALAX) powder 17 g 17 g Oral Daily PRN Aurelio Ceballos MD Current Infusions: Objective Data Point of care glucose No results for input(s): POCGLU in the last 168 hours. Labs last 24 hours Recent Results (from the past 24 hour(s)) Troponin I Collection Time: 12/18/18 12:02 Result Value Ref Range Troponin I 3.59 (HH) <0.06 ng/mL POC ACT Collection Time: 12/18/18 17:27 Result Value Ref Range Activated Clotting Time, POC 252 (H) 125 - 175 second(s) POC ACT Collection Time: 12/18/18 17:43 Result Value Ref Range Activated Clotting Time, POC >400 (HH) 125 - 175 second(s) POC ACT Collection Time: 12/18/18 17:58 Result Value Ref Range Activated Clotting Time, POC 257 (H) 125 - 175 second(s) ECG 12 lead Collection Time: 12/18/18 18:40 Result Value Ref Range INTERPRETATION TEXT Not Confirmed CK Total Collection Time: 12/19/18 3:44 Result Value Ref Range CK TOTAL 167 (H) 34 - 145 U/L Troponin I Collection Time: 12/19/18 3:44 Result Value Ref Range Troponin I 4.20 (HH) <0.06 ng/mL Basic Metabolic Panel Collection Time: 12/19/18 3:44 Result Value Ref Range Na 134 (L) 136 - 145 mmol/L K 3.8 3.4 - 5.1 mmol/L Cl 104 98 - 107 mmol/L CO2 21 20 - 31 mmol/L Anion Gap 9 3 - 16 mmol/L Glucose 122 (H) 60 - 106 mg/dL BUN 9 9 - 23 mg/dL Creatinine 0.63 0.55 - 1.02 mg/dL eGFR if not >60 >=60 mL/min/1.73m2 Calcium 9.0 8.7 - 10.4 mg/dL BUN/Creatinine Ratio 14.3 CBC with Differential Collection Time: 12/19/18 3:44 Result Value Ref Range WBC 8.0 4.0 - 11.0 K/uL RBC 4.28 3.70 - 5.20 M/uL Hemoglobin 13.5 11.5 - 16.0 g/dL Hematocrit 39.5 34.0 - 47.0 % MCV 92.3 83.0 - 101.0 fL MCH 31.5 28.0 - 35.0 pg MCHC 34.2 32.0 - 36.0 g/dL RDW-CV 12.2 <15.0 % RDW-SD 41.4 35.1 - 46.3 fL Platelet Count 211 140 - 440 K/uL MPV 8.9 6.5 - 12.4 fL % Neutrophils 79.4 45.0 - 82.0 % % Lymphocytes 11.6 (L) 20.0 - 45.0 % % Monocytes 8.6 4.0 - 12.0 % % Eosinophils 0.0 0.0 - 5.0 % % Basophils 0.2 0.0 - 1.0 % % Immature Granulocytes 0.2 0.0 - 0.4 % Absolute Neutrophils 6.36 1.80 - 8.50 K/uL Absolute Lymphocytes 0.93 0.60 - 3.20 K/uL Absolute Monocytes 0.69 0.00 - 1.00 K/uL Absolute Eosinophils 0.00 0.00 - 0.40 K/uL Absolute Basophils 0.02 0.00 - 0.10 K/uL Absolute Immature Granulocytes 0.02 0.00 - 0.03 K/uL % nRBC 0 0 - 2 per 100 WBCs Absolute nRBC 0.00 0.00 - 0.01 K/uL Magnesium Collection Time: 12/19/18 3:44 Result Value Ref Range Magnesium 2.0 1.6 - 2.6 mg/dL Micro results Microbiology Results (72 hrs) Procedure Component Value Units Date/Time Culture, MRSA [[id number]] Collected: 12/18/18132 Order Status: Sent Lab Status: In process Updated: 12/18/18136 Specimen: Tissue from Nares Radiology results No results found. Vitals Ranges: Temp: [35.9 C (96.7 F)-37.4 C (99.3 F)] 36.8 C (98.2 F) Pulse: [57-87] 67 Resp: [14-31] 20 BP: (119-190)/(62-102) 139/87 Vitals: Temp: 36.8 C (98.2 F) BP: 139/87 Pulse: 67 Resp: 20 SpO2: 93 % SpO2 93 % on nasal cannula at flow rate 3L/min Subjective Patient feels well. No chest pain. Unable to void overnight and straight cath performed wit h 1 liter removed. Exam Gen Johanny - alert, cooperative and no distress Head - Normocephalic Eyes - Conjunctiva/corneas clear ENT - mucous membranes moist Neck - supple Lungs - CTA throughout Heart - normal rate, rhythm w/o m/r/g Abdomen - Normoactive bowel sounds, non-tender non-distended Extremities - no peripheral edema, no clubbing or cyanosis Skin - No rashes Neurologic - Alert and oriented x 3 Amos Duncan MD 12/19/2018 7:41 [facility] Mackenzie Olsen Pha rmD - 12/18/2018 11:49 AM PDT PHARMACY SERVICES: ADMISSION MEDICATION REVIEW Sarina Zimmerman is a 88 y.o. female admitted on 12/18/2018. Patient is a reliable historian. Location of Patient when reviewed: MEDICAL FLOOR Patient s prior to admit medication and over the counter (OTC) medications/herbal supplem ents list obtained from: ? Verbal interview: Patient ABLE TO RECALL ALL name, strength, and directions ? Pharmacy list names: [facility] ([place], [place]) Vaccines up to date? Influenza No Pneumococcal Yes Tdap Yes Shingles Yes Noted medications discrepancies or medication-related issues: Medication added: Medication: Prior to Admission Sig: Unable to find: Orrtanna eye drops 1 drop in each eye as needed for dry eyes Acetaminophen 500 mg tablet Take 1 tablet by mouth every 6 hours as needed for pain Levothyroxine 50 mcg tablet Take 1 tablet by mouth every morning Losartan 50 mg tablet Take 1 tablet by mouth 2 times daily Brimonidine (Alphagan P) 0.1 % cecy Place 1 drop to affected eye 2 times daily Recreational Substances, Tobacco & Alcohol use/frequency: Patient denies use of Recreational substances, Tobacco, and/or Alcohol Best possible [employer] medication list after pharmacy review: PT REPORTED TAKING NOT TAKING Medication Sig Last Dose Dispense Doc. Provider acetaminophen (TYLENOL) 500 mg tablet Take 500 mg by mouth every 6 hours as needed for Ernestina n. Taking Historical MD Fran brimonidine (ALPHAGAN P) 0.1% SOLN Place 1 drop to affected eye 2 times daily Taking Hist orical ProviderMD levothyroxine (SYNTHROID) 50 mcg tablet Take 50 mcg by mouth every morning (before ). Taking Historical ProviderMD losartan (COZAAR) 50 mg tablet Take 50 mg by mouth 2 times daily. Taking Historical Kenny zuniga MD UNABLE TO FIND [place] eye drops: 1 drop in each eye as needed for dry eyes Taking Historic al MD Fran Medication review performed and electronically signed by Laura Pinto, Personal Financial Advisor 12/18/2018 11:24 Reviewed by Mackenzie Del Castillo, PharmMain 12/18/2018 11:44 Amos Trevino MD - 12/18/2018 7:25 AM PDT [facility] [place] [facility]ITAL[facility] PROGRESS NOTE Patient: Sarina Zimmerman : 1930: Age: 88 y.o. MedRec: [id number] Admission date: 12/18/2018 Hospital day # : 0 Physician author: Amos Duncan MD Today: 12/18/2018 Assessment and Hospital Course NSTEMI Plan NSTEMI Presented at OSH with chest pain. Had multiple episodes. Trop 0.217 at OSH. EKG with no acu te ischemic changes. CXR at OSH with no opacities. - Pt allergic to aspirin so will give Plavix 75 mg x1, s/p Lovenox 1 mg/kg x1 and coreg - Trop increased to 3.7 - Dr. Ceballos contacted by fartun be on [facility] today - Changed to atorvastatin - Cont coreg - Received lovenox 70mg at OSH 2317 Hypertension -Hypertensive at outside hospital and here, she only took her morning dose of losartan -Cont losartan BID Hypothyroidism -Cont home Synthroid PPX: S/p 1mg.kg dose of lovenox and SCD FEN: NPO Disp: Lives alone, PT/OT not yet ordered Current Facility-Administered Medications: acetaminophen 650 mg Oral Q4H PRN carvedilol 3.125 mg Oral BID WC clopidogrel 75 mg Oral Daily influenza IM vaccine 0.5 mL Intramuscular One Time Vaccine losartan 25 mg Oral Daily morphine 2 mg Intravenous Q4H PRN nitroglycerin 0.4 mg Sublingual Q5 Min PRN ondansetron 4 mg Oral Q6H PRN ondansetron 4 mg Intravenous Q6H PRN polyethylene glycol 17 g Oral Daily PRN pravastatin 40 mg Oral Nightly sodium chloride 0.9% Intravenous Continuous Allergies: Allergies Allergen Reactions Aspirin Hives Current Medications: Current Facility-Administered Medications Medication Dose Route Frequency Provider Last Rate Last Dose acetaminophen (TYLENOL) tablet 650 mg 650 mg Oral Q4H PRN Niru Parrish MD carvedilol (COREG) tablet 3.125 mg 3.125 mg Oral BID Niru Parrish MD clopidogrel (PLAVIX) tablet 75 mg 75 mg Oral Daily Niru Parrish MD 75 mg at 0259 influenza quadrivalent (FLUZONE, FLUARIX, AFLURIA QUADRIVALENT) vaccine injection (syri nge) 0.5 mL 0.5 mL Intramuscular One Time Vaccine Niru Parrish MD losartan (COZAAR) tablet 25 mg 25 mg Oral Daily Niru Parrish MD 25 mg at 12/18 0259 morphine injection 2 mg 2 mg Intravenous Q4H PRN Niru Parrish MD nitroglycerin (NITROSTAT) SL tablet 0.4 mg 0.4 mg Sublingual Q5 Min PRN Niru sun MD ondansetron (ZOFRAN ODT) disintegrating tablet 4 mg 4 mg Oral Q6H PRN Niru brooks MD ondansetron (ZOFRAN) injection 4 mg 4 mg Intravenous Q6H PRN Niru Parrish MD polyethylene glycol (MIRALAX) powder 17 g 17 g Oral Daily PRN Niru Parrish MD pravastatin (PRAVACHOL) tablet 40 mg 40 mg Oral Nightly Niru Parrish MD 40 mg at 12/18/18 0454 sodium chloride 0.9% (NS) infusion Intravenous Continuous Niru Parrish MD 75 mL /hr at 12/18/18 0315 Current Infusions: sodium chloride 0.9% 75 mL/hr at 12/18/18 0315 Objective Data Point of care glucose No results for input(s): POCGLU in the last 168 hours. Labs last 24 hours Recent Results (from the past 24 hour(s)) Basic Metabolic Panel Collection Time: 12/18/18 3:10 Result Value Ref Range Na 134 (L) 136 - 145 mmol/L K 3.6 3.4 - 5.1 mmol/L Cl 103 98 - 107 mmol/L CO2 24 20 - 31 mmol/L Anion Gap 7 3 - 16 mmol/L Glucose 112 (H) 60 - 106 mg/dL BUN 11 9 - 23 mg/dL Creatinine 0.64 0.55 - 1.02 mg/dL eGFR if not >60 >=60 mL/min/1.73m2 Calcium 9.1 8.7 - 10.4 mg/dL BUN/Creatinine Ratio 17.2 Lipid Panel Collection Time: 12/18/18 3:10 Result Value Ref Range Triglycerides 232 (H) <=150 mg/dL Cholesterol 222 (H) <=200 mg/dL HDL 40 40 - 60 mg/dL Chol/HDL Ratio 5.6 LDL, Calculated 136 (H) <=130 mg/dL Troponin I Collection Time: 12/18/18 3:10 Result Value Ref Range Troponin I 3.50 (HH) <0.06 ng/mL Magnesium Collection Time: 12/18/18 3:10 Result Value Ref Range Magnesium 2.0 1.6 - 2.6 mg/dL CBC with Differential Collection Time: 12/18/18 3:10 Result Value Ref Range WBC 6.0 4.0 - 11.0 K/uL RBC 4.27 3.70 - 5.20 M/uL Hemoglobin 13.1 11.5 - 16.0 g/dL Hematocrit 38.8 34.0 - 47.0 % MCV 90.9 83.0 - 101.0 fL MCH 30.7 28.0 - 35.0 pg MCHC 33.8 32.0 - 36.0 g/dL RDW-CV 12.0 <15.0 % RDW-SD 39.8 35.1 - 46.3 fL Platelet Count 201 140 - 440 K/uL MPV 9.0 6.5 - 12.4 fL % Neutrophils 48.3 45.0 - 82.0 % % Lymphocytes 34.3 20.0 - 45.0 % % Monocytes 13.0 (H) 4.0 - 12.0 % % Eosinophils 3.3 0.0 - 5.0 % % Basophils 0.8 0.0 - 1.0 % % Immature Granulocytes 0.3 0.0 - 0.4 % Absolute Neutrophils 2.90 1.80 - 8.50 K/uL Absolute Lymphocytes 2.06 0.60 - 3.20 K/uL Absolute Monocytes 0.78 0.00 - 1.00 K/uL Absolute Eosinophils 0.20 0.00 - 0.40 K/uL Absolute Basophils 0.05 0.00 - 0.10 K/uL Absolute Immature Granulocytes 0.02 0.00 - 0.03 K/uL % nRBC 0 0 - 2 per 100 WBCs Absolute nRBC 0.00 0.00 - 0.01 K/uL Protime INR Collection Time: 12/18/18 3:10 Result Value Ref Range Prothrombin Time 13.0 11.3 - 13.9 seconds INR 1.0 0.9 - 1.1 ECG 12 lead Collection Time: 12/18/18 5:38 Result Value Ref Range INTERPRETATION TEXT Not Confirmed Troponin I Collection Time: 12/18/18 6:04 Result Value Ref Range Troponin I 3.70 (HH) <0.06 ng/mL Micro results Microbiology Results (72 hrs) Procedure Component Value Units Date/Time Culture, MRSA [[id number]] Collected: 12/18/18132 Order Status: Sent Lab Status: In process Updated: 12/18/18136 Specimen: Tissue from Nares Radiology results No results found. Vitals Ranges: Temp: [36.5 C (97.7 F)] 36.5 C (97.7 F) Pulse: [64-75] 65 Resp: [16-19] 19 BP: (150-164)/(85-106) 153/92 Vitals: Temp: 36.5 C (97.7 F) BP: (!) 153/92 Pulse: 65 Resp: 19 SpO2: 90 % SpO2 90 % on at flow rate L/min Subjective Answering questions. No chest pain overnight. Exam Gen Johanny - alert, cooperative and no distress Head - Normocephalic Eyes - Conjunctiva/corneas clear ENT - mucous membranes moist Neck - supple Lungs - CTA throughout Heart - normal rate, rhythm w/o m/r/g Abdomen - Normoactive bowel sounds, non-tender non-distended Extremities - no peripheral edema, no clubbing or cyanosis Skin - No rashes Neurologic - Alert and oriented x 3 Amos Duncan MD 12/18/2018 7:25 [facility] documented in this e ncounter Plan of Treatment Not on filedocumented as of this encounter Procedures + +--------+ + + + | Procedure Name | Priori | Date/Time | Associated Diagnosis | Comments | | | ty | | | | + +--------+ + + + | ECG - EXTERNAL SCAN | | 12/27/2018 | | Results for this | | | | 12:00 AM | | procedure are in the | | | | PDT | | results section. | + +--------+ + + + | CBC WITH | Routin | 12/20/2018 | | Results for this | | DIFFERENTIAL | e | 5:08 AM | | procedure are in the | | | | PDT | | results section. | + +--------+ + + + | MAGNESIUM | Routin | 12/20/2018 | | Results for this | | | e | 5:08 AM | | procedure are in the | | | | PDT | | results section. | + +--------+ + + + | BASIC METABOLIC | Routin | 12/20/2018 | | Results for this | | PANEL | e | 5:08 AM | | procedure are in the | | | | PDT | | results section. | + +--------+ + + + | TROPONIN I | Routin | 12/19/2018 | | Results for this | | | e | 3:44 AM | | procedure are in the | | | | PDT | | results section. | + +--------+ + + + | CBC WITH | Routin | 12/19/2018 | | Results for this | | DIFFERENTIAL | e | 3:44 AM | | procedure are in the | | | | PDT | | results section. | + +--------+ + + + | MAGNESIUM | Routin | 12/19/2018 | | Results for this | | | e | 3:44 AM | | procedure are in the | | | | PDT | | results section. | + +--------+ + + + | CK TOTAL | Routin | 12/19/2018 | | Results for this | | | e | 3:44 AM | | procedure are in the | | | | PDT | | results section. | + +--------+ + + + | BASIC METABOLIC | Routin | 12/19/2018 | | Results for this | | PANEL | e | 3:44 AM | | procedure are in the | | | | PDT | | results section. | + +--------+ + + + | ECG 12 LEAD | KAYLA | 12/18/2018 | | Results for this | | | | 6:40 PM | | procedure are in the | | | | PDT | | results section. | + +--------+ + + + | CV VAS RENAL ANGIO | Routin | 12/18/2018 | | Results for this | | | e | 6:14 PM | | procedure are in the | | | | PDT | | results section. | + +--------+ + + + | CV STENT | Routin | 12/18/2018 | | Results for this | | | e | 6:14 PM | | procedure are in the | | | | PDT | | results section. | + +--------+ + + + | CV LV | Routin | 12/18/2018 | | Results for this | | | e | 6:14 PM | | procedure are in the | | | | PDT | | results section. | + +--------+ + + + | CV LHC | Routin | 12/18/2018 | | Results for this | | | e | 6:14 PM | | procedure are in the | | | | PDT | | results section. | + +--------+ + + + | CV COR ANGIO | Routin | 12/18/2018 | | Results for this | | | e | 6:14 PM | | procedure are in the | | | | PDT | | results section. | + +--------+ + + + | POC ACTIVATED | Routin | 12/18/2018 | | Results for this | | CLOTTING TIME ISTAT | e | 5:58 PM | | procedure are in the | | | | PDT | | results section. | + +--------+ + + + | POC ACTIVATED | Routin | 12/18/2018 | | Results for this | | CLOTTING TIME ISTAT | e | 5:43 PM | | procedure are in the | | | | PDT | | results section. | + +--------+ + + + | POC ACTIVATED | Routin | 12/18/2018 | | Results for this | | CLOTTING TIME ISTAT | e | 5:27 PM | | procedure are in the | | | | PDT | | results section. | + +--------+ + + + | TROPONIN I | Routin | 12/18/2018 | | Results for this | | | e | 12:02 PM | | procedure are in the | | | | PDT | | results section. | + +--------+ + + + | TROPONIN I | Routin | 12/18/2018 | | Results for this | | | e | 6:04 AM | | procedure are in the | | | | PDT | | results section. | + +--------+ + + + | ECG 12 LEAD | Routin | 12/18/2018 | | Results for this | | | e | 5:38 AM | | procedure are in the | | | | PDT | | results section. | + +--------+ + + + | LIPID PANEL | Routin | 12/18/2018 | | Results for this | | | e | 3:10 AM | | procedure are in the | | | | PDT | | results section. | + +--------+ + + + | TROPONIN I | Routin | 12/18/2018 | | Results for this | | | e | 3:10 AM | | procedure are in the | | | | PDT | | results section. | + +--------+ + + + | PROTIME INR | Routin | 12/18/2018 | | Results for this | | | e | 3:10 AM | | procedure are in the | | | | PDT | | results section. | + +--------+ + + + | CBC WITH | Routin | 12/18/2018 | | Results for this | | DIFFERENTIAL | e | 3:10 AM | | procedure are in the | | | | PDT | | results section. | + +--------+ + + + | MAGNESIUM | Routin | 12/18/2018 | | Results for this | | | e | 3:10 AM | | procedure are in the | | | | PDT | | results section. | + +--------+ + + + | BASIC METABOLIC | Routin | 12/18/2018 | | Results for this | | PANEL | e | 3:10 AM | | procedure are in the | | | | PDT | | results section. | + +--------+ + + + | CULTURE, MRSA | Routin | 12/18/2018 | | Results for this | | | e | 1:33 AM | | procedure are in the | | | | PDT | | results section. | + +--------+ + + + | ECG - EXTERNAL SCAN | | 12/17/2018 | | Results for this | | | | 12:00 AM | | procedure are in the | | | | PDT | | results section. | + +--------+ + + + documented in this encounter Results ECG - EXTERNAL SCAN (12/27/2018 12:00 AM PDT) + + + | Narrative | Performed At | + + + | Ordered by an | | | unspecified provider. | | + + + Magnesium (12/20/2018 5:08 AM PDT) + +-------+ + + + | Component | Value | Ref Range | Performed | Pathologist | | | | | At | Signature | + +-------+ + + + | Magnesium | 2.0 | 1.6 - 2.6 mg/dL | [facility] | | | | | | [facility] | | | | | | [facility] | | | | | | [facility] - | | | | | | LABORATORY | | + +-------+ + + + + + | Specimen | + + | Blood | + + + + + + + | Performing | Address | City/State/Zipcode | Phone Number | | Organization | | | | + + + + + | [facility] | [address] | [place] | [phone] | | [facility] | | [address] | | | - LABORATORY | | | | + + + + + CBC with Differential (12/20/2018 5:08 AM PDT) + + + + + + | Component | Value | Ref Range | Performed | Pathologist | | | | | At | Signature | + + + + + + | WBC | 5.9 | 4.0 - 11.0 K/uL | [facility] | | | | | [facility] | | | | | | [facility] | | | | | | [facility] - | | | | | | LABORATORY | | + + + + + + | RBC | 4.21 | 3.70 - 5.20 | [facility] | | | | | M/uL | [facility] | | | | | | [facility] | | | | | | [facility] - | | | | | | LABORATORY | | + + + + + + | Hemoglobin | 13.1 | 11.5 - 16.0 | [facility] | | | | | g/dL | [facility] | | | | | [facility] | | | | | | [facility] - | | | | | | LABORATORY | | + + + + + + | Hematocrit | 38.8 | 34.0 - 47.0 % | [facility] | | | | | | [facility] | | | | | | [facility] | | | | | | [facility] - | | | | | | LABORATORY | | + + + + + + | MCV | 92.2 | 83.0 - 101.0 fL | [facility] | | | | | | [facility] | | | | | [facility] | | | | | | [facility] - | | | | | | LABORATORY | | + + + + + + | MCH | 31.1 | 28.0 - 35.0 pg | [facility] | | | | | | [facility] | | [facility] | [facility] | | | | | | [facility] - | | | | | | LAB[facility]ATORY | | + + + + + + | MCHC | 33.8 | 32.0 - 36.0 | [facility] | | | | | g/dL | [facility] | | | | | | [facility] | | | | | | [facility] - | | | | | | LABORATORY | | + + + + + + | RDW-CV | 12.2 | <15.0 % | [facility] | | | | | | [facility] | | | [facility] | | [facility] | | | | | | [facility] - | | | | | | LAB[facility]ATORY | | + + + + + + | RDW-SD | 41.6 | 35.1 - 46.3 fL | [facility] | | | | | | [facility] | | | | | | [facility] | | | | | | [facility] - | | | | | | LAB[facility]ATORY | | + + + + + + | Platelet | 176 | 140 - 440 K/uL | [facility] | | | Count | | | [facility] | | | | | | [facility] | | | | | | [facility] - | | | | | | LABORATORY | | + + + + + + | MPV | 8.8 | 6.5 - 12.4 fL | [facility] | | | | | | [facility] | | | | | | [facility] | | | | | | [facility] - | | | | | | LABORATORY | | + + + + + + | % | 55.5 | 45.0 - 82.0 % | [facility] | | | Neutrophils | | | [facility] | | | | | | [facility] | | | | | | [facility] - | | | | | | LABORATORY | | + + + + + + | % | 27.3 | 20.0 - 45.0 % | [facility] | | | Lymphocytes | | | [facility] | | | | | | [facility] | | | | | | [facility] - | | | | | | LABORATORY | | + + + + + + | % Monocytes | 13.2 (H) | 4.0 - 12.0 % | [facility] | | | | | | [facility] | | | | | | [facility] | | | | | | [facility] - | | | | | | LABORATORY | | + + + + + + | % | 3.0 | 0.0 - 5.0 % | [facility] | | | Eosinophils | | | [facility] | | | | | | [facility] | | | | | | [facility] - | | | | | | LABORATORY | | + + + + + + | % Basophils | 0.7 | 0.0 - 1.0 % | [facility] | | | | | | [facility] | | | | | [facility] | | | | | | [facility] - | | | | | | LABORATORY | | + + + + + + | % Immature | 0.3 | 0.0 - 0.4 % | [facility] | | | Granulocyte | | | [facility] | | | s | | | [facility]ICAL | | | | | | CENTER - | | | | | | LABORATORY | | + + + + + + | Absolute | 3.29 | 1.80 - 8.50 | [facility] | | | Neutrophils | | K/uL | [facility] | | | | | | [facility] | | | | | | C[facility] - | | | | | | LABORATORY | | + + + + + + | Absolute | 1.62 | 0.60 - 3.20 | [facility] | | | Lymphocytes | | K/uL | [facility] | | | | | | [facility] | | | | | | C[facility] - | | | | | | LABORATORY | | + + + + + + | Absolute | 0.78 | 0.00 - 1.00 | [facility] | | | Monocytes | | K/uL | [facility] | | | | | | [facility] | | | | | | C[facility] - | | | | | | LABORATORY | | + + + + + + | Absolute | 0.18 | 0.00 - 0.40 | [facility] | | | Eosinophils | | K/uL | [facility] | | | | | | [facility] | | | | | | C[facility] - | | | | | | LABORATORY | | + + + + + + | Absolute | 0.04 | 0.00 - 0.10 | [facility] | | | Basophils | | K/uL | [facility] | | | | | | [facility] | | | | | | [facility] - | | | | | | LABORATORY | | + + + + + + | Absolute | 0.02 | 0.00 - 0.03 | [facility] | | | Immature | | K/uL | [facility] | | | Granulocyte | | | MEDICAL | | | s | | | CENTER - | | | | | | LABORATORY | | + + + + + + | % nRBC | 0 | 0 - 2 per 100 | [facility] | | | | | WBCs | [facility] | | | | | | [facility] | | | | | | CENTER - | | | | | | LABORATORY | | + + + + + + | Absolute | 0.00 | 0.00 - 0.01 | [facility] | | | nRBC | | K/uL | [facility] | | | | | | [facility] | | | | | | [facility] - | | | | | | LABORATORY | | + + + + + + + + | Specimen | + + | Blood | + + + + + + + | Performing | Address | City/State/Zipcode | Phone Number | | Organization | | | | + + + + + | [facility] | [address] | [place] | [phone] | | [facility] | | [address] | | | - LABORATORY | | | | + + + + + Basic Metabolic Panel (12/20/2018 5:08 AM PDT) + + + + + + | Component | Value | Ref Range | Performed | Pathologist | | | | | At | Signature | + + + + + + | Na | 136 | 136 - 145 | [facility] | | | | | mmol/L | [facility] | | | | | | [facility] | | | | | | [facility] - | | | | | | LABORATORY | | + + + + + + | K | 3.7 | 3.4 - 5.1 | [facility] | | | | | mmol/L | [facility] | | | | | | [facility] | | | | | | C[facility] - | | | | | | LABORATORY | | + + + + + + | Cl | 104 | 98 - 107 mmol/L | [facility] | | | | | | [facility] | | | | | | [facility] | | | | | | [facility] - | | | | | | LABORATORY | | + + + + + + | CO2 | 24 | 20 - 31 mmol/L | [facility] | | | | | | [facility] | | | | | | [facility] | | | | | | C[facility] - | | | | | | LABORATORY | | + + + + + + | Anion Gap | 8 | 3 - 16 mmol/L | [facility] | | | | | | [facility] | | | | | | [facility] | | | | | | [facility] - | | | | | | LABORATORY | | + + + + + + | Glucose | 96 | 60 - 106 mg/dL | [facility] | | | | | | [facility] | | | | | | [facility] | | | | | | C[facility] - | | | | | | LABORATORY | | + + + + + + | BUN | 15 | 9 - 23 mg/dL | [facility] | | | | | | [facility] | | | | | | [facility] | | | | | | [facility] - | | | | | | LABORATORY | | + + + + + + | Creatinine | 0.71 | 0.55 - 1.02 | [facility] | | | | | mg/dL | [facility] | | | | | | [facility] | | | | | | CENTER - | | | | | | LABORATORY | | + + + + + + | eGFR if not | >60Comment: GLOMERULAR | >=60 | [facility] | | | | FILTRATION | mL/min/1.73m2 | [facility] | | | [place] | RATE,ESTIMATED | | MEDICAL | | | | mL/min/1.87p8Cqtw than | | CENTER - | | | | 60 Chronic kidney | | LABORATORY | | | | disease,if found over a | | | | | | 3-month period.Less than | | | | | | 15 Kidney failureFor | | | | | | | | | | | | Americans,multiply the | | | | | | calculated GFR by 1.21. | | | | | | | | | | + + + + + + | Calcium | 9.2 | 8.7 - 10.4 | [facility] | | | | | mg/dL | [facility] | | | | | | MED[facility] | | | | | | CENTER - | | | | | | LABORATORY | | + + + + + + | BUN/Creatin | 21.1 | | [facility] | | | ine Ratio | | | [facility] | | | | | | [facility] | | | | | | CENTER - | | | | | | LABORATORY | | + + + + + + + + | Specimen | + + | Blood | + + + + + + + | Performing | Address | City/State/Zipcode | Phone Number | | Organization | | | | + + + + + | [facility] | [address] | [place] | [phone] | | [facility] | | [address] | | | - LABORATORY | | | | + + + + + Magnesium (12/19/2018 3:44 AM PDT) + +-------+ + + + | Component | Value | Ref Range | Performed | Pathologist | | | | | At | Signature | + +-------+ + + + | Magnesium | 2.0 | 1.6 - 2.6 mg/dL | [facility] | | | | | | [facility] | | | | | | [facility] | | | | | | [facility] - | | | | | | LABORATORY | | + +-------+ + + + + + | Specimen | + + | Blood | + + + + + + + | Performing | Address | City/State/Zipcode | Phone Number | | Organization | | | | + + + + + | [facility] | [address] | [place] | [phone] | | [facility] | | [address] | | | - LABORATORY | | | | + + + + + CBC with Differential (12/19/2018 3:44 AM PDT) + + + + + + | Component | Value | Ref Range | Performed | Pathologist | | | | | At | Signature | + + + + + + | WBC | 8.0 | 4.0 - 11.0 K/uL | [facility] | | | | | | [facility] | | | | | | [facility] | | | | | | C[facility] - | | | | | | LABORATORY | | + + + + + + | RBC | 4.28 | 3.70 - 5.20 | [facility] | | | | | M/uL | [facility] | | | | | [facility] | | | | | | [facility] - | | | | | | LABORATORY | | + + + + + + | Hemoglobin | 13.5 | 11.5 - 16.0 | [facility] | | | | | g/dL | [facility] | | | | | | [facility] | | | | | | C[facility] - | | | | | | LABORATORY | | + + + + + + | Hematocrit | 39.5 | 34.0 - 47.0 % | [facility] | | | | | | [facility] | | | | | | [facility] | | | | | | [facility] - | | | | | | LABORATORY | | + + + + + + | MCV | 92.3 | 83.0 - 101.0 fL | [facility] | | | | | | [facility] | | | | | | [facility] | | | | | | [facility] - | | | | | | LABORATORY | | + + + + + + | MCH | 31.5 | 28.0 - 35.0 pg | [facility] | | | | | | [facility] | | | | | | [facility] | | | | | | [facility] - | | | | | | LABORATORY | | + + + + + + | MCHC | 34.2 | 32.0 - 36.0 | [facility] | | | | | g/dL | [facility] | | | | | | [facility] | | | | | | CENTER - | | | | | | LABORATORY | | + + + + + + | RDW-CV | 12.2 | <15.0 % | [facility] | | | | | | [facility] | | | | | | [facility] | | | | | | [facility] - | | | | | | LABORATORY | | + + + + + + | RDW-SD | 41.4 | 35.1 - 46.3 fL | [facility] | | | | | | [facility] | | | | | | [facility] | | | | | | C[facility] - | | | | | | LABORATORY | | + + + + + + | Platelet | 211 | 140 - 440 K/uL | [facility] | | | Count | | | [facility] | | | | | | [facility] | | | | | | [facility] - | | | | | | LABORATORY | | + + + + + + | MPV | 8.9 | 6.5 - 12.4 fL | [facility] | | | | | | [facility] | | | | | | [facility] | | | | | | [facility] - | | | | | | LABORATORY | | + + + + + + | % | 79.4 | 45.0 - 82.0 % | [facility] | | | Neutrophils | | | [facility] | | | | | | [facility] | | | | | | C[facility] - | | | | | | LABORATORY | | + + + + + + | % | 11.6 (L) | 20.0 - 45.0 % | [facility] | | | Lymphocytes | | | [facility] | | | | | | [facility] | | | | | | C[facility] - | | | | | | LABORATORY | | + + + + + + | % Monocytes | 8.6 | 4.0 - 12.0 % | [facility] | | | | | | [facility] | | | | | | [facility] | | | | | | [facility] - | | | | | | LABORATORY | | + + + + + + | % | 0.0 | 0.0 - 5.0 % | [facility] | | | Eosinophils | | | [facility] | | | | | | [facility] | | | | | | C[facility] - | | | | | | LABORATORY | | + + + + + + | % Basophils | 0.2 | 0.0 - 1.0 % | [facility] | | | | | | [facility] | | | | | | [facility] | | | | | | [facility] - | | | | | | LABORATORY | | + + + + + + | % Immature | 0.2 | 0.0 - 0.4 % | [facility] | | | Granulocyte | | | [facility] | | | s | | | [facility]ICAL | | | | | | CENTER - | | | | | | LABORATORY | | + + + + + + | Absolute | 6.36 | 1.80 - 8.50 | [facility] | | | Neutrophils | | K/uL | [facility] | | | | | | [facility] | | | | | | [facility] - | | | | | | LABORATORY | | + + + + + + | Absolute | 0.93 | 0.60 - 3.20 | [facility] | | | Lymphocytes | | K/uL | [facility] | | | | | | [facility] | | | | | | [facility] - | | | | | | LABORATORY | | + + + + + + | Absolute | 0.69 | 0.00 - 1.00 | [facility] | | | Monocytes | | K/uL | [facility] | | | | | | [facility] | | | | | | [facility] - | | | | | | LABORATORY | | + + + + + + | Absolute | 0.00 | 0.00 - 0.40 | [facility] | | | Eosinophils | | K/uL | [facility] | | | | | | [facility] | | | | | | [facility] - | | | | | | LABORATORY | | + + + + + + | Absolute | 0.02 | 0.00 - 0.10 | [facility] | | | Basophils | | K/uL | [facility] | | | | | | [facility] | | | | | | CENTER - | | | | | | LABORATORY | | + + + + + + | Absolute | 0.02 | 0.00 - 0.03 | [facility] | | | Immature | | K/uL | [facility] | | | Granulocyte | | | MEDICAL | | | s | | | CENTER - | | | | | | LABORATORY | | + + + + + + | % nRBC | 0 | 0 - 2 per 100 | [facility] | | | | | WBCs | [facility] | | | | | | [facility] | | | | | | [facility]ENTER - | | | | | | LABORATORY | | + + + + + + | Absolute | 0.00 | 0.00 - 0.01 | [facility] | | | nRBC | | K/uL | [facility] | | | | | | [facility] | | | | | | CENTER - | | | | | | LABORATORY | | + + + + + + + + | Specimen | + + | Blood | + + + + + + + | Performing | Address | City/State/Zipcode | Phone Number | | Organization | | | | + + + + + | [facility] | [address] | [place] | [phone] | | [facility] | | [id number] | | | - LABORATORY | | | | + + + + + Basic Metabolic Panel (12/19/2018 3:44 AM PDT) + + + + + + | Component | Value | Ref Range | Performed | Pathologist | | | | | At | Signature | + + + + + + | Na | 134 (L) | 136 - 145 | [facility] | | | | | mmol/L | [facility] | | | | | | [facility] | | | | | | C[facility] - | | | | | | LABORATORY | | + + + + + + | K | 3.8 | 3.4 - 5.1 | [facility] | | | | | mmol/L | [facility] | | | | | | [facility] | | | | | | CENTER - | | | | | | LABORATORY | | + + + + + + | Cl | 104 | 98 - 107 mmol/L | [facility] | | | | | | [facility] | | | | | | [facility] | | | | | | CENTER - | | | | | | LABORATORY | | + + + + + + | CO2 | 21 | 20 - 31 mmol/L | [facility] | | | | | | [facility] | | | | | | [facility] | | | | | | CENTER - | | | | | | LABORATORY | | + + + + + + | Anion Gap | 9 | 3 - 16 mmol/L | [facility] | | | | | | [facility] | | | | | | MED[facility] | | | | | | CENTER - | | | | | | LABORATORY | | + + + + + + | Glucose | 122 (H) | 60 - 106 mg/dL | [facility] | | | | | | [facility] | | | | | | MEDICAL | | | | | | CENTER - | | | | | | LABORATORY | | + + + + + + | BUN | 9 | 9 - 23 mg/dL | [facility] | | | | | | [facility] | | | | | | [facility]ICAL | | | | | | CENTER - | | | | | | LABORATORY | | + + + + + + | Creatinine | 0.63 | 0.55 - 1.02 | [facility] | | | | | mg/dL | [facility] | | | | | | MEDICAL | | | | | | CENTER - | | | | | | LABORATORY | | + + + + + + | eGFR if not | >60Comment: GLOMERULAR | >=60 | [facility] | | | | FILTRATION | mL/min/1.73m2 | [facility] | | | [place] | RATE,ESTIMATED | | MEDICAL | | | | mL/min/1.82u1Agxz than | | CENTER - | | | | 60 Chronic kidney | | LABORATORY | | | | disease,if found over a | | | | | | 3-month period.Less than | | | | | | 15 Kidney failureFor | | | | | | | | | | | | Americans,multiply the | | | | | | calculated GFR by 1.21. | | | | | | | | | | + + + + + + | Calcium | 9.0 | 8.7 - 10.4 | [facility] | | | | | mg/dL | [facility] | | | | | | MEDICAL | | | | | | CENTER - | | | | | | LABORATORY | | + + + + + + | BUN/Creatin | 14.3 | | [facility] | | | ine Ratio | | | [facility] | | | | | | [facility] | | | | | | CENTER - | | | | | | LABORATORY | | + + + + + + + + | Specimen | + + | Blood | + + + + + + + | Performing | Address | City/State/Zipcode | Phone Number | | Organization | | | | + + + + + | [facility] | [address] | [place] | [phone] | | [facility] | | [address] | | | - LABORATORY | | | | + + + + + Troponin I (12/19/2018 3:44 AM PDT) + + + + + + | Component | Value | Ref Range | Performed | Pathologist | | | | | At | Signature | + + + + + + | Troponin I | 4.20 ()Comment: | <0.06 ng/mL | [facility] | | | | Comment:Reference | | [facility] | | | | Ranges: 0.00-0.06 = | | MEDICAL | | | | NORMAL >0.06 = | | CENTER - | | | | SUSPICIOUS FOR | | LABORATORY | | | | MYOCARDIAL DAMAGE NOTE: | | | | | | Values greater than | | | | | | 0.78 ng/mL have been | | | | | | shown to be strongly | | | | | | associated with acute | | | | | | myocardial infarction. | | | | | | The [employer] | | | | | | Cardiology (ACC) | | | | | | recommends a decision | | | | | | limit of 0.06 ng/mL for | | | | | | this assay. Results | | | | | | greater than 0.06 can | | | | | | reflect a pre-infarct | | | | | | acute coronary syndrome, | | | | | | but can also reflect | | | | | | myocardial necrosis or | | | | | | injury that is not due | | | | | | to coronary artery | | | | | | disease. Some of these | | | | | | causes are sepsis, | | | | | | hypocolemia, atrial | | | | | | fibrillation, heart | | | | | | failure, pulmonary | | | | | | embolism, myocarditis, | | | | | | myocardial contusion, | | | | | | and renal failure. The | | | | | | diagnosis of myocardial | | | | | | infarction should be | | | | | | based on a combination | | | | | | of the patient's | | | | | | clinical presentation | | | | | | and the clinical | | | | | | laboratory test results | | | | | | (especially serial | | | | | | troponin levels). | | | | | | Critical Result called | | | | | | to and read back by | | | | | | Eve Huerta on | | | | | | 12/19/2018 at 4:35 by | | | | | | Pelon Zurita | | | | + + + + + + + + | Specimen | + + | Blood | + + + + + + + | Performing | Address | City/State/Zipcode | Phone Number | | Organization | | | | + + + + + | [facility] | [address] | [place] | [phone] | | [facility] | | [address] | | | - LABORATORY | | | | + + + + + CK Total (12/19/2018 3:44 AM PDT) + +---------+ + + + | Component | Value | Ref Range | Performed | Pathologist | | | | | At | Signature | + +---------+ + + + | CK TOTAL | 167 (H) | 34 - 145 U/L | [facility] | | | | | | [facility] | | | | | | MEDICAL | | | | | | CENTER - | | | | | | LABORATORY | | + +---------+ + + + + + | Specimen | + + | Blood | + + + + + + + | Performing | Address | City/State/Zipcode | Phone Number | | Organization | | | | + + + + + | [facility] | [address] | [place] | [phone] | | [facility] | | [address] | | | - LABORATORY | | | | + + + + + ECG 12 lead (12/18/2018 6:40 PM PDT) + + + + + + | Component | Value | Ref Range | Performed | Pathologist | | | | | At | Signature | + + + + + + | VENTRICULAR | 68 | BPM | [facility] | | | RATE EKG | | | | | + + + + + + | ATRIAL RATE | 68 | BPM | [facility] | | + + + + + + | P-R | 228 | ms | [facility] | | | INTERVAL | | | | | + + + + + + | QRS | 84 | ms | [facility] | | | DURATION | | | | | + + + + + + | Q-T | 442 | ms | [facility] | | | INTERVAL | | | | | + + + + + + | Q-T | 469 | ms | [facility] | | | INTERVAL | | | | | | (CORRECTED) | | | | | + + + + + + | P WAVE AXIS | 62 | degrees | [facility] | | + + + + + + | QRS AXIS | -24 | degrees | [facility] | | + + + + + + | T AXIS | 43 | degrees | [facility] | | + + + + + + | INTERPRETAT | Sinus rhythm with 1st | | [facility] | | | ION TEXT | degree AV blockLong | | | | | | QTcSeptal infarct (cited | | | | | | on or before | | | | | | 18-DEC-2018)Abnormal | | | | | | ECGWhen compared with | | | | | | ECG of 18-DEC-2018 | | | | | | 05:38,Nonspecific ST | | | | | | wave abnormality now | | | | | | evident in Inferior | | | | | | leadsCriteria for | | | | | | Inferior infarct , age | | | | | | undetermined is no | | | | | | longer presentConfirmed | | | | | | by MARIS MCCALLUM MD | | | | | | ([id number]) on 12/19/2018 | | | | | | 7:50:18 AM | | | | + + + + + + + + | Specimen | + + | | + + + + + | Narrative | Performed At | + + + | | | + + + + +---------+ + + | Performing | Address | City/State/Zipcode | Phone Number | | Organization | | | | + +---------+ + + | [facility] | | | | + +---------+ + + CV CARDIAC PROCEDURE (12/18/2018 6:14 PM PDT) + +-------+ + + + | Component | Value | Ref Range | Performed | Pathologist | | | | | At | Signature | + +-------+ + + + | LVEF-LVGRAM | 70 | % | [facility] | | | CARDIAC | | | | | | CATH | | | | | + +-------+ + + + + + | Specimen | + + | | + + + + + | Narrative | Performed At | + + + | Patient was | [facility] | | admitted with an STEMI Patient taken to cardiac catheterization lab | | | and found to have subtotal narrowing of the mid circumflex after a | | | large first OM. There is also significant proximal LAD and distal | | | RCA disease. 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 She | | | underwent stenting of the LAD with a 4 oh stent 4.5 which was a | | | Xience. Patient did also had a energy stent placed into the mid | | | circumflex and a Xience stents into the distal RCA. Because of her | | | hypertension, renal angiograms were performed that showed patency. | | | Initially radial approach was attempted. However the radial artery | | | did not reach to brachial artery. Femoral approach was used. | | | Conscious sedation achieved using medications administered by the | | | Guide Delegate nurse under my supervision. Patient tolerated procedure | | | well. TR band used for radial access site hemostasis and Angio-Seal | | | was deployed in the femoral artery after femoral angiograms. For | | | additional detail as to the procedures performed and the equipment | | | that was utilized, please refer to the Procedure Log. | | |radial access site hemostasis and Angio-Seal was deployed in the femoral | | |artery after femoral angiograms. | | | | | | | | | | | |For additional detail as to the procedures performed and the equipment | | |that was utilized, please refer to the Procedure Log. | | | | | | | | | | | | | | | | | | | | | | | | | | | | | | | | | | | | | | | | | + + + + +---------+ + + | Performing | Address | City/State/Zipcode | Phone Number | | Organization | | | | + +---------+ + + | [facility] | | | | + +---------+ + + POC ACT (12/18/2018 5:58 PM PDT) + +---------+ + + + | Component | Value | Ref Range | Performed | Pathologist | | | | | At | Signature | + +---------+ + + + | Activated | 257 (H) | 125 - 175 | [facility] | | | Clotting | | second(s) | [facility] | | | Time, POC | | | MEDICAL | | | | | | CENTER - | | | | | | LABORATORY | | + +---------+ + + + + + | Specimen | + + | | + + + + + + + | Performing | Address | City/State/Zipcode | Phone Number | | Organization | | | | + + + + + | [facility] | [address] | [place] | [phone] | | [facility] | | [address] | | | - LABORATORY | | | | + + + + + POC ACT (12/18/2018 5:43 PM PDT) + + + + + + | Component | Value | Ref Range | Performed | Pathologist | | | | | At | Signature | + + + + + + | Activated | >400 (HH) | 125 - 175 | [facility] | | | Clotting | | second(s) | [facility] | | | Time, POC | | | MEDICAL | | | | | | CENTER - | | | | | | LABORATORY | | + + + + + + + + | Specimen | + + | | + + + + + + + | Performing | Address | City/State/Zipcode | Phone Number | | Organization | | | | + + + + + | [facility] | [address] | [place] | [phone] | | [facility] | | [address] | | | - LABORATORY | | | | + + + + + POC ACT (12/18/2018 5:27 PM PDT) + +---------+ + + + | Component | Value | Ref Range | Performed | Pathologist | | | | | At | Signature | + +---------+ + + + | Activated | 252 (H) | 125 - 175 | [facility] | | | Clotting | | second(s) | [facility] | | | Time, POC | | | MEDICAL | | | | | | CENTER - | | | | | | LABORATORY | | + +---------+ + + + + + | Specimen | + + | | + + + + + + + | Performing | Address | City/State/Zipcode | Phone Number | | Organization | | | | + + + + + | [facility] | [address] | [place], [place] | [phone] | | [facility] | | [address] | | | - LABORATORY | | | | + + + + + Troponin I (12/18/2018 12:02 PM PDT) + + + + + + | Component | Value | Ref Range | Performed | Pathologist | | | | | At | Signature | + + + + + + | Troponin I | 3.59 (HH)Comment: | <0.06 ng/mL | [facility] | | | | Consistent with previous | | [facility] | | | | results. | | MEDICAL | | | | Comment:Reference | | CENTER - | | | | Ranges: 0.00-0.06 = | | LABORATORY | | | | NORMAL >0.06 = | | | | | | SUSPICIOUS FOR | | | | | | MYOCARDIAL DAMAGE NOTE: | | | | | | Values greater than | | | | | | 0.78 ng/mL have been | | | | | | shown to be strongly | | | | | | associated with acute | | | | | | myocardial infarction. | | | | | | [employer] | | | | | | Card[employer] (ACC) | | | | | | recommends a decision | | | | | | limit of 0.06 ng/mL for | | | | | | this assay. Results | | | | | | greater than 0.06 can | | | | | | reflect a pre-infarct | | | | | | acute coronary syndrome, | | | | | | but can also reflect | | | | | | myocardial necrosis or | | | | | | injury that is not due | | | | | | to coronary artery | | | | | | disease. Some of these | | | | | | causes are sepsis, | | | | | | hypocolemia, atrial | | | | | | fibrillation, heart | | | | | | failure, pulmonary | | | | | | embolism, myocarditis, | | | | | | myocardial contusion, | | | | | | and renal failure. The | | | | | | diagnosis of myocardial | | | | | | infarction should be | | | | | | based on a combination | | | | | | of the patient's | | | | | | clinical presentation | | | | | | and the clinical | | | | | | laboratory test results | | | | | | (especially serial | | | | | | troponin levels). | | | | + + + + + + + + | Specimen | + + | Blood | + + + + + + + | Performing | Address | City/State/Zipcode | Phone Number | | Organization | | | | + + + + + | [facility] | [address] | [place] | [phone] | | [facility] | | [address] | | | - LABORATORY | | | | + + + + + Troponin I (12/18/2018 6:04 AM PDT) + + + + + + | Component | Value | Ref Range | Performed | Pathologist | | | | | At | Signature | + + + + + + | Troponin I | 3.70 ()Comment: | <0.06 ng/mL | [facility] | | | | Comment:Reference | | [facility] | | | | Ranges: 0.00-0.06 = | | MEDICAL | | | | NORMAL >0.06 = | | CENTER - | | | | SUSPICIOUS FOR | | LABORATORY | | | | MYOCARDIAL DAMAGE NOTE: | | | | | | Values greater than | | | | | | 0.78 ng/mL have been | | | | | | shown to be strongly | | | | | | associated with acute | | | | | | myocardial infarction. | | | | | | [employer] | | | | | | [employer] ([employer]) | | | | | | recommends a decision | | | | | | limit of 0.06 ng/mL for | | | | | | this assay. Results | | | | | | greater than 0.06 can | | | | | | reflect a pre-infarct | | | | | | acute coronary syndrome, | | | | | | but can also reflect | | | | | | myocardial necrosis or | | | | | | injury that is not due | | | | | | to coronary artery | | | | | | disease. Some of these | | | | | | causes are sepsis, | | | | | | hypocolemia, atrial | | | | | | fibrillation, heart | | | | | | failure, pulmonary | | | | | | embolism, myocarditis, | | | | | | myocardial contusion, | | | | | | and renal failure. The | | | | | | diagnosis of myocardial | | | | | | infarction should be | | | | | | based on a combination | | | | | | of the patient's | | | | | | clinical presentation | | | | | | and the clinical | | | | | | laboratory test results | | | | | | (especially serial | | | | | | troponin levels). | | | | | | Critical Result called | | | | | | to and read back by | | | | | | Eve Huerta RN on | | | | | | 12/18/2018 at 6:51 by | | | | | | Romy Oates. | | | | + + + + + + + + | Specimen | + + | Blood | + + + + + + + | Performing | Address | City/State/Zipcode | Phone Number | | Organization | | | | + + + + + | [facility] | [address] | [place] | [phone] | | [facility] | | [address] | | | - LABORATORY | | | | + + + + + ECG 12 lead (12/18/2018 5:38 AM PDT) + + + + + + | Component | Value | Ref Range | Performed | Pathologist | | | | | At | Signature | + + + + + + | VENTRICULAR | 62 | BPM | [facility] | | | RATE EKG | | | | | + + + + + + | ATRIAL RATE | 62 | BPM | [facility] | | + + + + + + | P-R | 230 | ms | [facility] | | | INTERVAL | | | | | + + + + + + | QRS | 84 | ms | [facility] | | | DURATION | | | | | + + + + + + | Q-T | 460 | ms | [facility] | | | INTERVAL | | | | | + + + + + + | Q-T | 466 | ms | [facility] | | | INTERVAL | | | | | | (CORRECTED) | | | | | + + + + + + | P WAVE AXIS | 48 | degrees | [facility] | | + + + + + + | QRS AXIS | -21 | degrees | [facility] | | + + + + + + | T AXIS | 36 | degrees | [facility] | | + + + + + + | INTERPRETAT | Sinus rhythm with 1st | | [facility] | | | ION TEXT | degree AV blockSeptal | | | | | | infarct , age | | | | | | undeterminedInferior | | | | | | infarct , age | | | | | | undeterminedAbnormal | | | | | | ECGNo previous ECGs | | | | | | availableConfirmed by | | | | | | MARIS MCCALLUM MD ([id number]) | | | | | | on 12/18/2018 7:47:30 AM | | | | | | | | | | + + + + + + + + | Specimen | + + | | + + + + + | Narrative | Performed At | + + + | | | + + + + +---------+ + + | Performing | Address | City/State/Zipcode | Phone Number | | Organization | | | | + +---------+ + + | [facility] | | | | + +---------+ + + Troponin I (12/18/2018 3:10 AM PDT) + + + + + + | Component | Value | Ref Range | Performed | Pathologist | | | | | At | Signature | + + + + + + | Troponin I | 3.50 ()Comment: | <0.06 ng/mL | [facility] | | | | Comment:Reference | | [facility] | | | | Ranges: 0.00-0.06 = | | MEDICAL | | | | NORMAL >0.06 = | | CENTER - | | | | SUSPICIOUS FOR | | LABORATORY | | | | MYOCARDIAL DAMAGE NOTE: | | | | | | Values greater than | | | | | | 0.78 ng/mL have been | | | | | | shown to be strongly | | | | | | associated with acute | | | | | | myocardial infarction. | | | | | | [employer] | | | | | | Cardiology ([employer]) | | | | | | recommends a decision | | | | | | limit of 0.06 ng/mL for | | | | | | this assay. Results | | | | | | greater than 0.06 can | | | | | | reflect a pre-infarct | | | | | | acute coronary syndrome, | | | | | | but can also reflect | | | | | | myocardial necrosis or | | | | | | injury that is not due | | | | | | to coronary artery | | | | | | disease. Some of these | | | | | | causes are sepsis, | | | | | | hypocolemia, atrial | | | | | | fibrillation, heart | | | | | | failure, pulmonary | | | | | | embolism, myocarditis, | | | | | | myocardial contusion, | | | | | | and renal failure. The | | | | | | diagnosis of myocardial | | | | | | infarction should be | | | | | | based on a combination | | | | | | of the patient's | | | | | | clinical presentation | | | | | | and the clinical | | | | | | laboratory test results | | | | | | (especially serial | | | | | | troponin levels). | | | | | | Critical Result called | | | | | | to and read back by | | | | | | Eve Huerta RN on | | | | | | 12/18/2018 at 3:48 by | | | | | | Pelon Arriaga. | | | | + + + + + + + + | Specimen | + + | Blood | + + + + + + + | Performing | Address | City/State/Zipcode | Phone Number | | Organization | | | | + + + + + | [facility] | [address] | [place] | [phone] | | [facility] | | [address] | | | - LABORATORY | | | | + + + + + Protime INR (12/18/2018 3:10 AM PDT) + + + + + + | Component | Value | Ref Range | Performed | Pathologist | | | | | At | Signature | + + + + + + | Prothrombin | 13.0 | 11.3 - 13.9 | [facility] | | | Time | | seconds | [facility] | | | | | | MEDICAL | | | | | | CENTER - | | | | | | LABORATORY | | + + + + + + | INR | 1.0Comment: Usual Oral | 0.9 - 1.1 | [facility] | | | | Anticoagulation Range: | | [facility] | | | | 2.0 - 3.0High | | MEDICAL | | | | Level Oral | | CENTER - | | | | Anticoagulation Range: | | LABORATORY | | | | 2.5 - 3.5 | | | | + + + + + + + + | Specimen | + + | Blood | + + + + + + + | Performing | Address | City/State/Zipcode | Phone Number | | Organization | | | | + + + + + | [facility] | [address] | [place] | [phone] | | [facility] | | [address] | | | - LABORATORY | | | | + + + + + CBC with Differential (12/18/2018 3:10 AM PDT) + + + + + + | Component | Value | Ref Range | Performed | Pathologist | | | | | At | Signature | + + + + + + | WBC | 6.0 | 4.0 - 11.0 K/uL | [facility] | | | | | | [facility] | | | | | | MEDICAL | | | | | | CENTER - | | | | | | LABORATORY | | + + + + + + | RBC | 4.27 | 3.70 - 5.20 | [facility] | | | | | M/uL | [facility] | | | | | | MEDICAL | | | | | | CENTER - | | | | | | LABORATORY | | + + + + + + | Hemoglobin | 13.1 | 11.5 - 16.0 | [facility] | | | | | g/dL | [facility] | | | | | | [facility]ICAL | | | | | | CENTER - | | | | | | LABORATORY | | + + + + + + | Hematocrit | 38.8 | 34.0 - 47.0 % | [facility] | | | | | | [facility] | | | | | | MEDICAL | | | | | | CENTER - | | | | | | LABORATORY | | + + + + + + | MCV | 90.9 | 83.0 - 101.0 fL | [facility] | | | | | | [facility] | | | | | | MEDICAL | | | | | | CENTER - | | | | | | LABORATORY | | + + + + + + | MCH | 30.7 | 28.0 - 35.0 pg | [facility] | | | | | | [facility] | | | | | | MEDICAL | | | | | | CENTER - | | | | | | LABORATORY | | + + + + + + | MCHC | 33.8 | 32.0 - 36.0 | [facility] | | | | | g/dL | [facility] | | | | | | MEDICAL | | | | | | CENTER - | | | | | | LABORATORY | | + + + + + + | RDW-CV | 12.0 | <15.0 % | [facility] | | | | | | [facility] | | | | | | MEDICAL | | | | | | CENTER - | | | | | | LABORATORY | | + + + + + + | RDW-SD | 39.8 | 35.1 - 46.3 fL | [facility] | | | | | | [facility] | | | | | | MEDICAL | | | | | | CENTER - | | | | | | LABORATORY | | + + + + + + | Platelet | 201 | 140 - 440 K/uL | [facility] | | | Count | | | [facility] | | | | | | MEDICAL | | | | | | CENTER - | | | | | | LABORATORY | | + + + + + + | MPV | 9.0 | 6.5 - 12.4 fL | [facility] | | | | | | [facility] | | | | | | MEDICAL | | | | | | CENTER - | | | | | | LABORATORY | | + + + + + + | % | 48.3 | 45.0 - 82.0 % | [facility] | | | Neutrophils | | | [facility] | | | | | | MEDICAL | | | | | | CENTER - | | | | | | LABORATORY | | + + + + + + | % | 34.3 | 20.0 - 45.0 % | [facility] | | | Lymphocytes | | | [facility] | | | | | | MEDICAL | | | | | | CENTER - | | | | | | LABORATORY | | + + + + + + | % Monocytes | 13.0 (H) | 4.0 - 12.0 % | [facility] | | | | | | [facility] | | | | | | MEDICAL | | | | | | CENTER - | | | | | | LABORATORY | | + + + + + + | % | 3.3 | 0.0 - 5.0 % | [facility] | | | Eosinophils | | | [facility] | | | | | | MEDICAL | | | | | | CENTER - | | | | | | LABORATORY | | + + + + + + | % Basophils | 0.8 | 0.0 - 1.0 % | [facility] | | | | | | [facility] | | | | | | MEDICAL | | | | | | CENTER - | | | | | | LABORATORY | | + + + + + + | % Immature | 0.3 | 0.0 - 0.4 % | [facility] | | | Granulocyte | | | [facility] | | | s | | | MEDICAL | | | | | | CENTER - | | | | | | LABORATORY | | + + + + + + | Absolute | 2.90 | 1.80 - 8.50 | [facility] | | | Neutrophils | | K/uL | [facility] | | | | | | MEDICAL | | | | | | CENTER - | | | | | | LABORATORY | | + + + + + + | Absolute | 2.06 | 0.60 - 3.20 | [facility] | | | Lymphocytes | | K/uL | [facility] | | | | | | MEDICAL | | | | | | CENTER - | | | | | | LABORATORY | | + + + + + + | Absolute | 0.78 | 0.00 - 1.00 | [facility] | | | Monocytes | | K/uL | [facility] | | | | | | MEDICAL | | | | | | CENTER - | | | | | | LABORATORY | | + + + + + + | Absolute | 0.20 | 0.00 - 0.40 | [facility] | | | Eosinophils | | K/uL | [facility] | | | | | | MEDICAL | | | | | | CENTER - | | | | | | LABORATORY | | + + + + + + | Absolute | 0.05 | 0.00 - 0.10 | [facility] | | | Basophils | | K/uL | [facility] | | | | | | MEDICAL | | | | | | CENTER - | | | | | | LABORATORY | | + + + + + + | Absolute | 0.02 | 0.00 - 0.03 | [facility] | | | Immature | | K/uL | [facility] | | | Granulocyte | | | MEDICAL | | | s | | | CENTER - | | | | | | LABORATORY | | + + + + + + | % nRBC | 0 | 0 - 2 per 100 | [facility] | | | | | WBCs | [facility] | | | | | | MEDICAL | | | | | | CENTER - | | | | | | LABORATORY | | + + + + + + | Absolute | 0.00 | 0.00 - 0.01 | [facility] | | | nRBC | | K/uL | [facility] | | | | | | [facility]ICAL | | | | | | CENTER - | | | | | | LABORATORY | | + + + + + + + + | Specimen | + + | Blood | + + + + + + + | Performing | Address | City/State/Zipcode | Phone Number | | Organization | | | | + + + + + | [facility] | [address] | [place] | [phone] | | [facility] | | [address] | | | - LABORATORY | | | | + + + + + Magnesium (12/18/2018 3:10 AM PDT) + +-------+ + + + | Component | Value | Ref Range | Performed | Pathologist | | | | | At | Signature | + +-------+ + + + | Magnesium | 2.0 | 1.6 - 2.6 mg/dL | [facility] | | | | | | [facility] | | | | | | [facility]ICAL | | | | | | CENTER - | | | | | | LABORATORY | | + +-------+ + + + + + | Specimen | + + | Blood | + + + + + + + | Performing | Address | City/State/Zipcode | Phone Number | | Organization | | | | + + + + + | [facility] | [address] | [place], [place] | [phone] | | [facility] | | [address] | | | - LABORATORY | | | | + + + + + Lipid Panel (12/18/2018 3:10 AM PDT) + +---------+ + + + | Component | Value | Ref Range | Performed | Pathologist | | | | | At | Signature | + +---------+ + + + | Triglycerid | 232 (H) | <=150 mg/dL | [facility] | | | es | | | [facility] | | | | | | [facility] | | | | | | CENTER - | | | | | | LABORATORY | | + +---------+ + + + | Cholesterol | 222 (H) | <=200 mg/dL | [facility] | | | | | | [facility] | | | | | | [facility] | | | | | | [facility]ENTER - | | | | | | LABORATORY | | + +---------+ + + + | HDL | 40 | 40 - 60 mg/dL | [facility] | | | | | | [facility] | | | | | | [facility] | | | | | | [facility]ENTER - | | | | | | LABORATORY | | + +---------+ + + + | Chol/HDL | 5.6 | | [facility] | | | Ratio | | | [facility] | | | | | | MEDICAL | | | | | | CENTER - | | | | | | LABORATORY | | + +---------+ + + + | LDL, | 136 (H) | <=130 mg/dL | [facility] | | | Calculated | | | [facility] | | | | [facility] | [facility] | | | | | | [facility] - | | | | | | LABORATORY | | + +---------+ + + + + + | Specimen | + + | Blood | + + + + + + + | Performing | Address | City/State/Zipcode | Phone Number | | Organization | | | | + + + + + | [facility] | [address] | [place] | [phone] | | [facility] | | [address] | | | - LABORATORY | | | | + + + + + Basic Metabolic Panel (12/18/2018 3:10 AM PDT) + + + + + + | Component | Value | Ref Range | Performed | Pathologist | | | | | At | Signature | + + + + + + | Na | 134 (L) | 136 - 145 | [facility] | | | | | mmol/L | [facility] | | | | | | [facility] | | | | | | CENTER - | | | | | | LABORATORY | | + + + + + + | K | 3.6 | 3.4 - 5.1 | [facility] | | | | | mmol/L | [facility] | | | | | | [facility] | | | | | | CENTER - | | | | | | LABORATORY | | + + + + + + | Cl | 103 | 98 - 107 mmol/L | [facility] | | | | | | [facility] | | | | | | [facility] | | | | | | CENTER - | | | | | | LABORATORY | | + + + + + + | CO2 | 24 | 20 - 31 mmol/L | [facility] | | | | | | [facility] | | | | | | [facility] | | | | | | [facility] - | | | | | | LABORATORY | | + + + + + + | Anion Gap | 7 | 3 - 16 mmol/L | [facility] | | | | | | [facility] | | | | | | [facility] | | | | | | CENTER - | | | | | | LABORATORY | | + + + + + + | Glucose | 112 (H) | 60 - 106 mg/dL | [facility] | | | | | | [facility] | | | | | | [facility] | | | | | | C[facility] - | | | | | | LABORATORY | | + + + + + + | BUN | 11 | 9 - 23 mg/dL | [facility] | | | | | | [facility] | | | | | | [facility] | | | | | | CENTER - | | | | | | LABORATORY | | + + + + + + | Creatinine | 0.64 | 0.55 - 1.02 | [facility] | | | | | mg/dL | [facility] | | | | | | [facility]ICAL | | | | | | CENTER - | | | | | | LABORATORY | | + + + + + + | eGFR if not | >60Comment: GLOMERULAR | >=60 | [facility] | | | | FILTRATION | mL/min/1.73m2 | [facility] | | | [place] | RATE,ESTIMATED | | MEDICAL | | | | mL/min/1.24w1Thpo than | | CENTER - | | | | 60 Chronic kidney | | LABORATORY | | | | disease,if found over a | | | | | | 3-month period.Less than | | | | | | 15 Kidney failureFor | | | | | | | | | | | | Americans,multiply the | | | | | | calculated GFR by 1.21. | | | | | | | | | | + + + + + + | Calcium | 9.1 | 8.7 - 10.4 | [facility] | | | | | mg/dL | [facility] | | | | | | MEDICAL | | | | | | CENTER - | | | | | | LABORATORY | | + + + + + + | BUN/Creatin | 17.2 | | [facility] | | | ine Ratio | | | [facility] | | | | | | [facility] | | | | | | CENTER - | | | | | | LABORATORY | | + + + + + + + + | Specimen | + + | Blood | + + + + + + + | Performing | Address | City/State/Zipcode | Phone Number | | Organization | | | | + + + + + | [facility] | [address] | [place] | [phone] | | [facility] | | [address] | | | - LABORATORY | | | | + + + + + Culture, MRSA (12/18/2018 1:33 AM PDT) + + + + + + | Component | Value | Ref Range | Performed | Pathologist | | | | | At | Signature | + + + + + + | Culture | Negative for MRSA by | | [facility] | | | | chromogenic agar method. | | [facility] | | | | | | [facility]ICAL | | | | | | CENTER - | | | | | | LABORATORY | | + + + + + + | Culture | 2+ Coagulase positive | | [facility] | | | | Staphylococcus | | [facility] | | | | | | [facility]ICAL | | | | | | CENTER - | | | | | | LABORATORY | | + + + + + + + + | Specimen | + + | Tissue - Both | | anterior nares (body | | structure) | + + + + + + + | Performing | Address | City/State/Zipcode | Phone Number | | Organization | | | | + + + + + | [facility] | [address] | [place], [place] | [phone] | | [facility] | | [address] | | | - LABORATORY | | | | + + + + + ECG - EXTERNAL SCAN (12/17/2018 12:00 AM PDT) + + + | Narrative | Performed At | + + + | Ordered by an | | | unspecified provider. | | + + + documented in this encounter Visit Diagnoses + + | Diagnosis | + + | NSTEMI (non-ST elevated myocardial infarction) (HCC) Acute myocardial infarction, | | subendocardial infarction, episode of care unspecified | + + | Essential hypertension Unspecified essential hypertension | + + | Hypothyroidism, unspecified type | + + | Glaucoma, unspecified glaucoma type, unspecified laterality | + + documented in this encounter Administered Medications + +--------+ +--------+------+------+ | Medication Order | MAR | Action | Dose | Rate | Site | | | Action | Date | | | | + +--------+ +--------+------+------+ | acetaminophen (TYLENOL) tablet | Given | 12/20/19 | 650 mg | | | | 650 mg 650 mg, Oral, EVERY 4 | | 19 6:27 | | | | | HOURS PRN, Pain, or fever >= 38.6 | | AM PDT | | | | | C (101.5 F), Starting Mon | | | | | | | 12/18/18 at 0200 | | | | | | + +--------+ +--------+------+------+ +---+---+ | | | +---+---+ + +-------+ +--------+---+ + | Alphagan 0.1% (Brimonidine | Given | 12/21/19 | 1 drop | | Eye-Both | | tartrate) opthalmic solution - | | 19 9:58 | | | | | patient own medication 1 drop, | | AM PDT | | | | | Ophthalmic, 2 TIMES DAILY, First | | | | | | | dose on Mon12/18/18 at 1100, One | | | | | | | drop each eye, twice a day, PT's | | | | | | | OWN MED (alphagan eye drops). In | | | | | | | Lock Box or Pyxis Patient | | | | | | | Specific Bin. RETURN TO PATIENT | | | | | | | AT DISCHARGE. Verified #1 bottle | | | | | | | by Pharmacist Mei Ford, | | | | | | | PharmD 12/18/2018, , , Generic | | | | | | | Name: Brimonidine tartrate | | | | | | | solution, Length of Therapy: | | | | | | | Indefinite, Reason for | | | | | | | Non-Formulary: Dose that patient | | | | | | | uses, Brand Name: Alphagan | | | | | | + +-------+ +--------+---+ + +-------+ +--------+---+ + | Given | 12/20/19 | 1 drop | | Eye-Both | | | 19 9:31 | | | | | | PM PDT | | | | +-------+ +--------+---+ + | Given | 12/20/19 | 1 drop | | Eye-Both | | | 19 9:27 | | | | | | AM PDT | | | | +-------+ +--------+---+ + +---+---+ | | | +---+---+ + +-------+ +-------+---+---+ | atorvaSTATin (LIPITOR) tablet | Given | 12/20/19 | 80 mg | | | | 80 mg 80 mg, Oral, NIGHTLY, | | 19 9:30 | | | | | First dose on Mon12/18/18 at | | PM PDT | | | | | 2100 | | | | | | + +-------+ +-------+---+---+ +-------+ +-------+---+---+ | Given | 12/19/19 | 80 mg | | | | | 19 10:50 | | | | | | PM PDT | | | | +-------+ +-------+---+---+ +---+---+ | | | +---+---+ + +-------+ + +---+---+ | carvedilol (COREG) tablet 3.125 | Given | 12/19/19 | 3.125 mg | | | | mg 3.125 mg, Oral, 2 TIMES | | 19 8:40 | | | | | DAILY WITH BREAKFAST & DINNER, | | AM PDT | | | | | First dose on Mon12/18/18 at | | | | | | | 0800, Hold for SBP<100 or HR<50, | | | | | | + +-------+ + +---+---+ +---+---+ | | | +---+---+ + +-------+ +-------+---+---+ | clopidogrel (PLAVIX) tablet 75 | Given | 12/21/19 | 75 mg | | | | mg 75 mg, Oral, DAILY, First | | 19 9:57 | | | | | dose on Mon12/18/18 at 0230, Do | | AM PDT | | | | | NOT give if dose already taken | | | | | | | today, | | | | | | + +-------+ +-------+---+---+ +-------+ +-------+---+---+ | Given | 12/20/19 | 75 mg | | | | | 19 9:25 | | | | | | AM PDT | | | | +-------+ +-------+---+---+ | Given | 12/19/19 | 75 mg | | | | | 19 2:59 | | | | | | AM PDT | | | | +-------+ +-------+---+---+ +---+---+ | | | +---+---+ + +-------+ +-------+---+---+ | clopidogrel (PLAVIX) tablet 75 | Given | 12/19/19 | 75 mg | | | | mg 75 mg, Oral, ONCE, Mon | | 19 7:41 | | | | | 12/18/18 at 1845, For 1 dose, | | PM PDT | | | | | Received 75 mg at 12/18/18 - | | | | | | | 0259; give this 75 mg for a total | | | | | | | dose of 150 mg for today, | | | | | | | Post-op/Phase II | | | | | | + +-------+ +-------+---+---+ +---+---+ | | | +---+---+ + +-------+ +------+---+---+ | diazePAM (VALIUM) tablet 5 mg | Given | 12/19/19 | 5 mg | | | | 5 mg, Oral, DATA WAREHOUSING ENGINEER, Starting Mon | | 19 3:40 | | | | | 12/18/18 at 1320, For 1 dose, | | PM PDT | | | | | Pre-op | | | | | | + +-------+ +------+---+---+ +---+---+ | | | +---+---+ + +-------+ +-------+---+---+ | diphenhydrAMINE (BENADRYL) | Given | 12/19/19 | 25 mg | | | | tablet 25 mg 25 mg, Oral, ON | | 19 3:40 | | | | | CALL, Starting Mon12/18/18 at | | PM PDT | | | | | 1320, For 1 dose, Pre-op | | | | | | + +-------+ +-------+---+---+ +---+---+ | | | +---+---+ + +-------+ +---------+---+ + | influenza quadrivalent | Given | 12/20/19 | 0.5 mLs | | Deltoid- | | (FLUZONE, FLUARIX, AFLURIA | | 19 11:55 | | | Left | | QUADRIVALENT) vaccine injection | | AM PDT | | | | | (syringe) 0.5 mL 0.5 mL, | | | | | | | Intramuscular, ONE TIME VACCINE, | | | | | | | e 12/18/18 at 0900, For 1 dose, | | | | | | | Give patient education | | | | | | | information. Genaro prior to use., | | | | | | | | | | | | | + +-------+ +---------+---+ + +---+---+ | | | +---+---+ + +-------+ +-------+---+---+ | losartan (COZAAR) tablet 25 mg | Given | 12/19/19 | 25 mg | | | | 25 mg, Oral, DAILY, First dose | | 19 2:59 | | | | | on Mon12/18/18 at 0230, Hold for | | AM PDT | | | | | SBP<100, | | | | | | + +-------+ +-------+---+---+ +---+---+ | | | +---+---+ + +-------+ +-------+---+---+ | losartan (COZAAR) tablet 25 mg | Given | 12/19/19 | 25 mg | | | | 25 mg, Oral, ONCE, Mon12/18/18 | | 19 9:08 | | | | | at 0915, For 1 dose | | AM PDT | | | | + +-------+ +-------+---+---+ +---+---+ | | | +---+---+ + +-------+ +-------+---+---+ | losartan (COZAAR) tablet 50 mg | Given | 12/21/19 | 50 mg | | | | 50 mg, Oral, DAILY, First dose | | 19 9:57 | | | | | (after last modification) on Wed | | AM PDT | | | | | 12/19/18 at 0900, Hold for | | | | | | | SBP<100, | | | | | | + +-------+ +-------+---+---+ +-------+ +-------+---+---+ | Given | 12/20/19 | 50 mg | | | | | 19 9:25 | | | | | | AM PDT | | | | +-------+ +-------+---+---+ +---+---+ | | | +---+---+ + +-------+ +-------+---+---+ | metoprolol succinate | Given | 12/21/19 | 50 mg | | | | (TOPROL-XL) ER tablet 50 mg 50 | | 19 9:57 | | | | | mg, Oral, DAILY, First dose on | | AM PDT | | | | | 12/18/18 at 1845, Hold for | | | | | | | SBP<100 or HR<50. Tablet may be | | | | | | | cut where scored but do not | | | | | | | crush., Post-op/Phase II | | | | | | + +-------+ +-------+---+---+ +-------+ +-------+---+---+ | Given | 12/20/19 | 50 mg | | | | | 19 9:25 | | | | | | AM PDT | | | | +-------+ +-------+---+---+ | Given | 12/19/19 | 50 mg | | | | | 19 7:41 | | | | | | PM PDT | | | | +-------+ +-------+---+---+ +---+---+ | | | +---+---+ + +-------+ +------+---+---+ | ondansetron (ZOFRAN) injection | Given | 12/19/19 | 4 mg | | | | 4 mg 4 mg, Intravenous, EVERY 6 | | 19 9:32 | | | | | HOURS PRN, Nausea, Vomiting, | | PM PDT | | | | | Starting 12/18/18 at 0201, | | | | | | | First line agent, | | | | | | + +-------+ +------+---+---+ +---+---+ | | | +---+---+ + +-------+ +--------+---+---+ | potassium chloride (Klor-Con | Given | 12/19/19 | 40 mEq | | | | M20) ER tablet 40 mEq 40 mEq, | | 19 8:40 | | | | | Oral, ONCE, Mon12/18/18 at 0745, | | AM PDT | | | | | For 1 dose, OK to substitute | | | | | | | liquid formulation if better | | | | | | | tolerated., | | | | | | + +-------+ +--------+---+---+ +---+---+ | | | +---+---+ + +-------+ +-------+---+---+ | pravastatin (PRAVACHOL) tablet | Given | 12/19/19 | 40 mg | | | | 40 mg 40 mg, Oral, NIGHTLY, | | 19 4:54 | | | | | First dose on Mon12/18/18 at | | AM PDT | | | | | 0400 | | | | | | + +-------+ +-------+---+---+ +---+---+ | | | +---+---+ + +---------+ +---+ +---+ | sodium chloride 0.9% (NS) | New Bag | 12/19/19 | | 75 mL/hr | | | infusion at 75 mL/hr, | | 19 3:15 | | | | | Intravenous, CONTINUOUS, Starting | | AM PDT | | | | | 12/18/18 at 0230, For 12 | | | | | | | hours | | | | | | + +---------+ +---+ +---+ +---+---+ | | | +---+---+ + + + +---+-------+---+ | sodium chloride 0.9% (NS) | Restarte | 12/19/19 | | 100 | | | infusion at 100 mL/hr, | d | 19 7:18 | | mL/hr | | | Intravenous, FIXED VOLUME (see | | PM PDT | | | | | admin instruction), Starting Tue | | | | | | | 12/18/18 at 1530, For 10 hours, X | | | | | | | 1000cc, | | | | | | + + + +---+-------+---+ + + +---+-------+---+ | Rate/Dose Change | 12/19/19 | | 100 | | | | 19 3:41 | | mL/hr | | | | PM PDT | | | | + + +---+-------+---+ +---+---+ | | | +---+---+ documented in this encounter
--- OUTSIDE RECORDS SUMMARY | ~2019-01-09 | XMS | Encounter Summary ---
Demographics + + + | Address | [address] | | | [place] [address] | + + + | Home Phone | | + + + | Preferred Language | Unknown | + + + | Marital Status | | + + + | Zoroastrianism Affiliation | Unknown | + + + | Race | Unknown | + + + | Ethnic Group | Unknown | + + + Author + + + | Author | [facility] | | | and [place] | + + + | Organization | [facility] | | | and [place] | + + + | Address | Unknown | + + + | Phone | Unavailable | + + + Support + + + + + | Name | Relationship | Address | Phone | + + + + + | Kaley Zimmerman | ECON | [place] | | | | | [address] | | + + + + + Care Team Providers + +------+ + | Care Concrete Plant Laborer Name | Role | Phone | + +------+ + | Seun Bojorquez MD | PCP | | + +------+ + Encounter Details +--------+ + + + + | Date | Type | Department | Care Team | Description | +--------+ + + + + | 12/20/ | Imaging | [facility] | Provider, | | | 2019 | Exam | [facility] | [address] | | | | | IMAGING | [place] [address] | | | | | [phone] | [place] [address] | | +--------+ + + + + [...] | + +--------+ + + + | XR CHEST 2 VIEWS | Routin | 12/17/2018 | | Results for this | | | e | 12:00 AM | | procedure are in the | | | | PDT | | results section. | + +--------+ + + + documented in this encounter Results XR Chest 2 Vws (12/17/2018 12:00 AM PDT) + + | Specimen | + + | | + + + + + | Narrative | Performed At | + + + | External films for comparison only | [facility] | | | | | No results will be in the chart. | | + + + + +---------+ + + | Performing | Address | City/State/Zipcode | Phone Number | | Organization | | | | + +---------+ + + | [facility] | | | | + +---------+ + + documented in this encounter Visit Diagnoses Not on filedocumented in this encounter"
--- OUTSIDE RECORDS SUMMARY | ~2019-01-09 | XMS | Encounter Summary ---
Demographics + + + | Address | [address] | | | [place] [address] | + + + | Home Phone | | + + + | Preferred Language | Unknown | + + + | Marital Status | | + + + | Uatsdin Affiliation | Unknown | + + + | Race | Unknown | + + + | Ethnic Group | Unknown | + + + Author + + + | Author | [facility] | | | and [place] | + + + | Organization | [facility] | | | and [place] | + + + | Address | Unknown | + + + | Phone | Unavailable | + + + Support + + + + + | Name | Relationship | Address | Phone | + + + + + | Kaley Zimmerman | ECON | [place] | | | | | [address] | | + + + + + Care Team Providers + +------+ + | Care Airport Guide Name | Role | Phone | + +------+ + | Seun Bojorquez MD | PCP | | + +------+ + Reason for Visit + + + | Reason | Comments | + + + | Follow-up | | + + + Encounter Details +--------+ + + + + | Date | Type | Department | Care Team | Description | +--------+ + + + + | 12/28/ | Telephone | [facility] | Shaka Antoine, | Follow-up | | 2019 | | [facility] | RN | | | | | [address] | | | | | | [place], [place] | | | | | | [address] | | | | | | [phone] | | | +--------+ + + + [...]
--- OUTSIDE RECORDS SUMMARY | ~2019-01-09 | XMS | Encounter Summary ---
Demographics + + + | Address | [address] | | | [place] [address] | + + + | Home Phone | | + + + | Preferred Language | Unknown | + + + | Marital Status | Single | + + + | Anglican Affiliation | Unknown | + + + [...] Team Providers + +------+ + | Care Recruitment Intern Name | Role | Phone | + +------+ + PCP | Unavailable | + +------+ + Encounter Details +--------+ + + + + | Date | Type | Department | Care Team | Description | +--------+ + + + + | 09/29/ | [facility] | | | | | [...]
--- OUTSIDE RECORDS SUMMARY | ~2019-01-09 | XMS | Encounter Summary ---
Demographics + + + | Address | [address] | | | [place] [address] | + + + | Home Phone | | + + + | Preferred Language | Unknown | + + + | Marital Status | Single | + + + | Alevism Affiliation | Unknown | + + + [...] Team Providers + +------+ + | Care Dental Assistant Instructor Name | Role | Phone | + +------+ + PCP | Unavailable | + +------+ + Encounter Details +--------+ + + + + | Date | Type | Department | Care Team | Description | +--------+ + + + + | 08/31/ | [facility] | | | | | [...]
--- OUTSIDE RECORDS SUMMARY | ~2019-01-09 | XMS | Encounter Summary ---
Demographics + + + | Address | [address] | | | [place] [address] | + + + | Home Phone | | + + + | Preferred Language | Unknown | + + + | Marital Status | Single | + + + | Baptist Affiliation | Unknown | + + + [...] Team Providers + +------+ + | Care Collar Trimmer Name | Role | Phone | + +------+ + PCP | Unavailable | + +------+ + Encounter Details +--------+ + + + + | Date | Type | Department | Care Team | Description | +--------+ + + + + | 10/11/ | [facility] | | | | | [...]
--- OUTSIDE RECORDS SUMMARY | ~2019-01-09 | XMS | Encounter Summary ---
Demographics + + + | Address | [address] | | | [place] [address] | + + + | Home Phone | | + + + | Preferred Language | Unknown | + + + | Marital Status | Single | + + + | Sabianist Affiliation | Unknown | + + + [...] Team Providers + +------+ + | Care Mine Boss Name | Role | Phone | + [...]
--- OUTSIDE RECORDS SUMMARY | ~2019-01-09 | XMS | Encounter Summary ---
Demographics + + + | Address | [address] | | | [place] [address] | + + + | Home Phone | | + + + | Preferred Language | Unknown | + + + | Marital Status | | + + + | Presybeterian Affiliation | Unknown | + + + | Race | Unknown | + + + | Ethnic Group | Unknown | + + + Author + + + | Author | [facility] | | | and [place] | + + + | Organization | [facility] | | | and [place] | + + + | Address | Unknown | + + + | Phone | Unavailable | + + + Support + + + + + | Name | Relationship | Address | Phone | + + + + + | Kaley Zimmerman | ECON | [place] | | | | | [address] | | + + + + + Care Team Providers + +------+ + | Care Meat Seafood Associate Name | Role | Phone | + +------+ + | Seun Bojorquez MD | PCP | | + +------+ + Reason for Visit +--------+ + | Reason | Comments | +--------+ + | Other | Needs appointment, declined plans to see [facility] in | | | [place] | +--------+ + Encounter Details +--------+ + + + + | Date | Type | Department | Care Team | Description | +--------+ + + + + | 12/25/ | Telephone | [facility] | Aurelio Ceballos MD | Other (Needs | | 2019 | | CARDIOLOGY [address] | appointment, | | | | [place], | [place] | declined plans to | | | | [place] [address] | [address] | see [facility] in | | | | [phone] | | [place]) | +--------+ + + + + Social [...]
--- OUTSIDE RECORDS SUMMARY | ~2019-01-09 | XMS | Encounter Summary ---
Demographics + + + | Address | [address] | | | [place] [address] | + + + | Home Phone | | + + + | Preferred Language | Unknown | + + + | Marital Status | | + + + | Sabianism Affiliation | Unknown | + + + | Race | Unknown | + + + | Ethnic Group | Unknown | + + + Author + + + | Author | [facility] | | | and [place] | + + + | Organization | [facility] | | | and [place] | + + + | Address | Unknown | + + + | Phone | Unavailable | + + + Support + + + + + | Name | Relationship | Address | Phone | + + + + + | Kaley Zimmerman | ECON | [place] | | | | | [address] | | + + + + + Care Team Providers + +------+ + | Care Camouflage Assembler Name | Role | Phone | + [...] + + | 12/18/ | Hospital | [facility] | [place], | NSTEMI (non-ST | | 2019 - | Encounter | [facility] | MD Niru [address] | elevated myocardial | | | | [address] [place] | [address] [place] | infarction) ([facility]); | | 12/20/ | | [place] [address] | [place] [address] | Essential | | 2019 | | [phone] | [phone] | hypertension; | | | | | | Hypothyroidism, | | | | | Amos Duncan MD | unspecified type; | | | | | [address] | Glaucoma, | | | | | [place], [place] | unspecified glaucoma | | | | | [address] | type, unspecified | | | | [...] might be different fr om the original. [place] HOSPITALIST DISCHARGE SUMMARY Pt. Name/Age/: Sarina [...] (before breakfast). aka: SYNTHROID UNABLE TO FIND Glenvil eye drops: 1 drop in each eye [...] understood the risk of fal ling including assisted disability and . Uncontrolled Hypertension Hypertensive at outside hospital and here, she only took her morning dose of losartan. Impr kayleigh with losartan and metoprolol. Urinary retention Patient had limited voiding last night. Straight cath performed with 1 liter. Patient then had bladder scans to monitor. Likely 2/2 to sedation from [facility]. Resolved at time of discharge . Gen: [...] on discharge day PROCEDURES AND CONSULTS: Procedures [facility] Consults Card PENDING RESULTS: DISPOSITION AND DISCHARGE INSTRUCTIONS: Follow-up Information Seun Bojorquez MD In 1 week. Specialty: Internal Medicine Contact information: [address] [facility] [address] Aurelio Ceballos MD In 1 week. Specialties: Interventional Cardiology, Cardiology Contact information: [address] [facility] [address] Condition: Patient being discharged with condition improved Diet: Card Less than 30 minutes were spent on discharge and coordination of post-hospital care. Electronically signed by: Amos Duncan MD, 12/20/2018 8:32 [facility] Portions of this chart may have been created with [employer] voice recognition software. Occasi onal wrong-word or [...] heartbeat or fast pulse Date Last Reviewed: 11/28/201519992767-[address] [employer] [place] [address], [place] [address]. All righ ts reserved. This information is [...] matters outside of health, Date Last Reviewed: 07/29/201519997689-7520 [employer]. [address] [place] [address]. All righ ts reserved. This information is [...] + + | UNABLE TO FIND | Glenvil eye drops: 1 | | 0 | | | | | drop in each eye as | | | | | | | needed for dry eyes | | | | | + + + +---------+ + + documented as of this encounter Progress Notes Esthela Goldman RN - 12/20/2018 2:25 PM PDTDischarge instructions reviewed by pharmacy. A ll questions answered. Victoriano Lance, Fiber Heel Piece Shaper - 12/20/2018 11:29 AM Thelma Gordlilo Erasmo was admitt ed for NSTEMI and discharged home today (12/20/2018) Taught AVS education to patient. Education was focused on new medications and/or changed me dications. I explained indication, how to take, possible side effects, when to contact physi chavo, and monitor parameters. The patient was encouraged to make a follow-up appointment with PCP and with paint process engineer. The patient verbalized understanding of the above and all questions were answered. Pharmaci st will follow-up with patient in one to two business days. Patient was provided with a myles nciled discharge medication list as part of their AVS instructions. Encouraged patient to sh are medication list with healthcare providers and keep list current. Victoriano [place], Fiber Heel Piece Shaper 12/20/2018 11:29 Amos Trevino MD - 12/19/2018 7:41 AM PD T [place] HOSPITALIST PROGRESS NOTE Patient: Sarina Zimmerman : 1930: Age: 88 y.o. MedRec: [id number] Admission date: 12/18/2018 Hospital day # : [...] 0.4 mg Sublingual Q5 Min PRN Aurelio eCballos MD ondansetron (ZOFRAN ODT) disintegrating tablet 4 [...] Procedure Component Value Units Date/Time Culture, MRSA [[id number]] Collected: 12/18/18132 Order Status: Sent Lab Status: [...] x 3 Amos Duncan MD 12/19/2018 7:41 [facility] Mackenzie Olsen Pha rmD - 12/18/2018 11:49 [...] strength, and directions ? Pharmacy list names: [facility] ([place], [place]) Vaccines up to date? Influenza No Pneumococcal Yes Tdap Yes Shingles Yes Noted medications discrepancies or medication-related issues: Medication added: Medication: Prior to Admission Sig: Unable to find: Glenvil eye drops 1 drop in each eye [...] Recreational substances, Tobacco, and/or Alcohol Best possible SENIOR TRAINER medication list after pharmacy review: PT REPORTED [...] Historical Kenny zuniga MD UNABLE TO FIND Glenvil eye drops: 1 drop in each eye as needed for dry eyes Taking Historic al MD Fran Medication review performed and electronically signed by Laura Pinto, Seed Pelleter 12/18/2018 11:24 Reviewed by Mackenzie Del Castillo, PharmMain 12/18/2018 11:44 Amos Trevino MD - 12/18/2018 7:25 AM PDT [facility] [place] HOSPITALIST PROGRESS NOTE Patient: Sarina Zimmerman : 1930: Age: 88 y.o. MedRec: [id number] Admission date: 12/18/2018 Hospital day # : [...] Dr. Ceballos contacted by fartun be on [facility] today - Changed to atorvastatin - Cont [...] Procedure Component Value Units Date/Time Culture, MRSA [[id number]] Collected: 12/18/18132 Order Status: Sent Lab Status: [...] x 3 Amos Duncan MD 12/18/2018 7:25 [facility] documented in this e ncounter Plan of [...] [address] | [place] | [phone] | | [facility] | | [address] | | | - LABORATORY | | [...] + | [facility] | [address] | [place] | [phone] | | [facility] | | [address] | | | - LABORATORY | | [...] mL/min/1.73m2 | [facility] | | | [place] | RATE,ESTIMATED | | MEDICAL | | | | mL/min/1.33a3Skue than | | CENTER - | | [...] | + + + + + | [facility] | [address] | [place] | [phone] | | [facility] | | [address] | | | - LABORATORY | | [...] [address] | [place] | [phone] | | [facility] | | [address] | | | - LABORATORY | | [...] [address] | [place] | [phone] | | [facility] | | [address] | | | - LABORATORY | | [...] mL/min/1.73m2 | [facility] | | | [place]ESE | RATE,ESTIMATED | | MEDICAL | | | | mL/min/1.56h6Glaq than | | CENTER - | | [...] [address] | [place] | [phone] | | [facility] | | [address] | | | - LABORATORY | | [...] | | | | | | [employer] | | | | | [...] + | [facility] | [address] | [place] | [phone] | | [facility] | | [address] | | | - LABORATORY | | [...] + | [facility] | [address] | [place] | [phone] | | [facility] | | [address] | | | - LABORATORY | | [...] MD | | | | | | ([id number]) on 12/19/2018 | | | | | [...] medications administered by the | | | Primary Clinician nurse under my supervision. Patient tolerated procedure [...] [address] | [place] | [phone] | | [facility] | | [address] | | | - LABORATORY | | [...] + | [facility] | [address] | [place] | [phone] | | [facility] | | [address] | | | - LABORATORY | | [...] ST. | [address] | [place], [place] | [phone] | | [facility] | | [address] | | | - LABORATORY | | [...] | | | | | | [employer] | | | | | [...] [address] | [place] | [phone] | | [facility] | | [address] | | | - LABORATORY | | [...] | | | | | | [employer] | | | | | [...] [address] | [place] | [phone] | | [facility] | | [address] | | | - LABORATORY | | [...] | | | | MARIS MCCALLUM MD ([id number]) | | | | | | on [...] | | | | | | [employer] | | | | | [...] [address] | [place] | [phone] | | [facility] | | [address] | | | - LABORATORY | | [...] [address] | [place] | [phone] | | [facility] | | [address] | | | - LABORATORY | | [...] [address] | [place] | [phone] | | [facility] | | [address] | | | - LABORATORY | | [...] + | [facility] | [address] | [place], [place] | [phone] | | [facility] | | [address] | | | - LABORATORY | | [...] [address] | [place] | [phone] | | [facility] | | [address] | | | - LABORATORY | | [...] | mL/min/1.73m2 | [facility] | | | [place] | RATE,ESTIMATED | | MEDICAL | | | | mL/min/1.00o1Ajyl than | | CENTER - | | [...] [address] | [place] | [phone] | | [facility] | | [address] | | | - LABORATORY | | [...] ST. | [address] | [place], [place] | [phone] | | [facility] | | [address] | | | - LABORATORY | | [...] | | | | 5 mg, Oral, SPECIAL ORDER JEWELER, Starting Mon | | 19 3:40 | [...]
--- OUTSIDE RECORDS SUMMARY | ~2019-01-09 | XMS | Encounter Summary ---
Demographics + + + | Address | [address] | | | [place] [address] | + + + | Home Phone | | + + + | Preferred Language | Unknown | + + + | Marital Status | Single | + + + | Roman Catholic Affiliation | Unknown | + + + [...] Team Providers + +------+ + | Care Diamond Die Maker Name | Role | Phone | + [...]
--- OUTSIDE RECORDS SUMMARY | ~2019-01-09 | XMS | Encounter Summary ---
Demographics + + + | Address | [address] | | | [place] [address] | + + + | Home Phone | | + + + | Preferred Language | Unknown | + + + | Marital Status | | + + + | Sikh Affiliation | Unknown | + + + | Race | Unknown | + + + | Ethnic Group | Unknown | + + + Author + + + | Author | [facility] | | | and [place] | + + + | Organization | [facility] | | | and [place] | + + + | Address | Unknown | + + + | Phone | Unavailable | + + + Support + + + + + | Name | Relationship | Address | Phone | + + + + + | Kaley Zimmerman | ECON | [place] | | | | | [address] | | + + + + + Care Team Providers + +------+ + | Care Network Security Consultant Name | Role | Phone | + [...] Eileen [place]ENDERSON | | | | | [phone] | [place] [address] | | +--------+ + + + + [...]
--- OUTSIDE RECORDS SUMMARY | ~2019-01-09 | XMS | Encounter Summary ---
Demographics + + + | Address | [address] | | | [place] [address] | + + + | Home Phone | | + + + | Preferred Language | Unknown | + + + | Marital Status | Single | + + + | Evangelical Affiliation | Unknown | + + + [...] Team Providers + +------+ + | Care Belt Conveyor Drier Name | Role | Phone | + +------+ + PCP | Unavailable | + +------+ + Encounter Details +--------+ + + + + | Date | Type | Department | Care Team | Description | +--------+ + + + + | 12/11/ | Procedure - | Epic at [facility] | Amy | Operative Report | | 2015 | | [address] | MD Curly [address] | | | | Transcribed | [place], [place] | [place], [place] | | | | | [address] | [address] | | | | | | | [...] [facility] | | patient was placed in [...] brought to the operating room at the [facility] | | | |Center. [...] date 12/11/14 17:08:00 | | PDTEMLA Crm ([facility] Sub: Lido 4%): 1 elieser, Cream, [...] | Progress Note-PN 12/11/2014 08:42 PDTPrimary Pain Bvcsvrasz639/15/2015 08:07 | | PDTHeight/Length Thcmfaey735 cmWeight Bdeousld71.3 kgTemperature Temporal Capezg17.4 | | DegCPeripheral Pulse Rate66 bpmRespiratory Rate16 breaths/minuteSystolic Blood | | Xvzmnniw474 mmHg HIDiastolic Blood Ixrfdquu08 mmHgMean Arterial Pressure, Qdkj801 | | ubQvArR535 % , Vitals Temp BP MAP Pulse RR SpO2 DLZ359/15 08:07 36.4 155/82 106 66 16 | | 98% ---Vital Signs are the last 20 in the past 24 hours. , Measurements from flowsheet : | | Measurements 12/11/201408:07 PDTHeight/Length Xngmxcmf159 cmWeight Zjdguxjq02.3 | | kgKilograms to .4 lbWeight Ngiurd07.3 kgBody Mass Index Txitxmci61.55 | | kg/m212/10/2014 14:14 PDTUsual Uocvqs210 cmUsual Jutsde60.57 kg Airway: Mallampati | | classification: I. [...] | | | |12/11/2014 08:42 PDTPrimary Pain Nzqwgrxlf111/15/2015 08:07 PDTHeight/Length Nufvhlxi527 cm Weight Edjywloj72.3 kgTemperature Temporal Glsmor38.4 DegCPeripheral Pulse Rate66 bpmRespira tory Rate16 | |breaths/minuteSystolic Blood Btrqviwe415 mmHg HIDiastolic Blood Oepelvbv99 mmHgMean Arteri al Pressure, Geqb411 shRyUdW635 % | | | |, | | | |Vitals Temp BP MAP Pulse RR SpO2 FIO2 | | | |12/11 08:07 36.4 155/82 106 66 16 98% --- | | | |Vital Signs are the last 20 in the past 24 hours. | | | | | | | | , Measurements from flowsheet : Measurements | | | |12/11/201408:07 PDTHeight/Length Cznockfg723 cmWeight Iyizmprp70.3 kgKilograms to embmlo607 .4 lbWeight Thewhe68.3 kgBody Mass Index Cnvggmii71.55 kg/m212/10/2014 14:14 PDTUsual Height 163 cmUsual Kjiucs30.57 kg | | | | | | [...]
--- OUTSIDE RECORDS SUMMARY | ~2019-01-09 | XMS | Encounter Summary ---
Demographics + + + | Address | [address] | | | [place] [address] | + + + | Home Phone | | + + + | Preferred Language | Unknown | + + + | Marital Status | Single | + + + | Lutheran Affiliation | Unknown | + + + [...] Team Providers + +------+ + | Care Automatic Lathe Operator Name | Role | Phone | + [...]
--- OUTSIDE RECORDS SUMMARY | ~2019-01-09 | XMS | Encounter Summary ---
Demographics + + + | Address | [address] | | | [place] [address] | + + + | Home Phone | | + + + | Preferred Language | Unknown | + + + | Marital Status | | + + + | Shinto Affiliation | Unknown | + + + | Race | Unknown | + + + | Ethnic Group | Unknown | + + + Author + + + | Author | [facility] | | | and [place] | + + + | Organization | [facility] | | | and [place] | + + + | Address | Unknown | + + + | Phone | Unavailable | + + + Support + + + + + | Name | Relationship | Address | Phone | + + + + + | Kaley Zimmerman | ECON | [place] | | | | | [address] | | + + + + + Care Team Providers + +------+ + | Care Historiography Teacher Name | Role | Phone | + [...] | | | | | [address] | | | | | | [place], [place] | | | | | | [address] | | | | | | [phone] | | | +--------+ + + + [...]
--- OUTSIDE RECORDS SUMMARY | ~2019-01-09 | XMS | Encounter Summary ---
Demographics + + + | Address | [address] | | | [place] [address] | + + + | Home Phone | | + + + | Preferred Language | Unknown | + + + | Marital Status | | + + + | Jehovah'S Witness Affiliation | Unknown | + + + | Race | Unknown | + + + | Ethnic Group | Unknown | + + + Author + + + | Author | [facility] | | | and [place] | + + + | Organization | [facility] | | | and [place] | + + + | Address | Unknown | + + + | Phone | Unavailable | + + + Support + + + + + | Name | Relationship | Address | Phone | + + + + + | Kaley Zimmerman | ECON | [place] | | | | | [phone] | | + + + + + Care Team Providers + +------+ + | Care Temporary Help Agency Referral Clerk Name | Role | Phone | + [...] +--------+--------+ + + + + Encounter Details +--------+---------+ + + + | Date | Type | Department | Care Team | Description | +--------+---------+ + + + | 12/18/ | Surgery | [facility] | Auerlio Ceballos MD | CV COR ANGIO | | 2019 | | MED CTR CV INTRA OP | [address] | | | | | [address] | [place], [place] | | | | | [place], [place] | [address] | | | | | [address] | | | | | | [phone] | | | +--------+---------+ + + + Social History + +-------+ [...] might be different fr om the original. [place] HOSPITALIST DISCHARGE SUMMARY Pt. Name/Age/: Sarina [...] (before breakfast). 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 Uncontrolled Hypertension Hypertensive at outside hospital and here, she only took her morning dose of losartan. Impr kayleigh with losartan and metoprolol. Urinary retention Patient had limited voiding last night. Straight cath performed with 1 liter. Patient then had bladder scans to monitor. Likely 2/2 to sedation from [facility]. Resolved at time of discharge . [...] on discharge day PROCEDURES AND CONSULTS: Procedures [facility] Consults Card PENDING RESULTS: DISPOSITION AND DISCHARGE INSTRUCTIONS: Follow-up Information Seun Bojorquez MD In 1 week. Specialty: Internal Medicine Contact information: [address] [place] [address] Aurelio Ceballos MD In 1 week. Specialties: Interventional Cardiology, Cardiology Contact information: [address] [place] [address] Condition: Patient being discharged with condition improved Diet: Card Less than 30 minutes were spent on discharge and coordination of post-hospital care. Electronically signed by: Amos Duncan MD, 12/20/2018 8:32 [facility] Portions of this chart may have been created with Get[employer]aid voice recognition software. Occasi onal wrong-word or [...] t skip doses. Talk with your healthcare p antonino if your medicines aren't working for you. [...] heartbeat or fast pulse Date Last Reviewed: 11/28/201519990998-[address] [employer] [place] [address]. All righ ts reserved. This information is [...] matters outside of health, Date Last Reviewed: 07/29/201519995555-[address] [employer] [place] [address], [place] [address]. All righ ts reserved. This information is [...] tablet by | 30 | 1 | 12/20/20 | | | (LIPITOR) 80 MG | [...] tablet by | 30 | 1 | 12/20/20 | | | (PLAVIX) 75 mg | [...] + + | UNABLE TO FIND | Newhall eye drops: 1 | | 0 | | | | | drop in each eye as | | | | | | | needed for dry eyes | | | | | + + + +---------+ + + documented as of this encounter Progress Notes Esthela Goldman RN - 12/20/2018 2:25 PM PDTDischarge instructions reviewed by pharmacy. A ll questions answered. Victoriano Lance, Rescue Boat Operator - 12/20/2018 11:29 AM PDTDoromana Zimmerman was admitt ed for NSTEMI and discharged home today (12/20/2018) Taught AVS education to patient. Education was focused on new medications and/or changed me dications. I explained indication, how to take, possible side effects, when to contact physi chavo, and monitor parameters. The patient was encouraged to make a follow-up appointment with PCP and with house nurse. The patient verbalized understanding of the above and all questions were answered. Pharmaci st will follow-up with patient in one to two business days. Patient was provided with a myles nciled discharge medication list as part of their AVS instructions. Encouraged patient to sh are medication list with healthcare providers and keep list current. Victoriano Walton, Rescue Boat Operator 12/20/2018 11:29 Amos Trevino MD - 12/19/2018 7:41 AM PD T [place] HOSPITALIST PROGRESS NOTE Patient: Sarina Zimmerman : 1930: Age: 88 y.o. MedRec: [id number] Admission date: 12/18/2018 Hospital day # : [...] BID Aurelio Ceballos MD 1 drop at 12/18/18 225 atorvaSTATin (LIPITOR) tablet 80 mg 80 mg Oral Nightly Aurelio Ceballos MD 80 mg at 225 clopidogrel (PLAVIX) tablet 75 mg 75 mg [...] Aurelio Ceballos MD 4 mg a t 12/18/182131 oxyCODONE (ROXICODONE) tablet 5-10 mg 5-10 mg [...] Procedure Component Value Units Date/Time Culture, MRSA [[id number]] Collected: 12/18/18132 Order Status: Sent Lab Status: [...] 3 Amos Duncan MD 12/19/2018 7:41 [facility] Mackenzie Olsen Pha rmD - 12/18/2018 [...] strength, and directions ? Pharmacy list names: [facility] ([place], [place]) Vaccines up to date? Influenza No Pneumococcal Yes Tdap Yes Shingles Yes Noted medications discrepancies or medication-related issues: Medication added: Medication: Prior to Admission Sig: Unable to find: Newhall eye drops 1 drop in each eye [...] Recreational substances, Tobacco, and/or Alcohol Best possible INCIDENT HANDLER medication list after pharmacy review: PT REPORTED TAKING NOT TAKING Medication Sig Last Dose Dispense Doc. Provider acetaminophen (TYLENOL) 500 mg tablet Take 500 mg by mouth every 6 hours as needed for Ernestina n. Taking Historical Provider, brimonidine (ALPHAGAN P) 0.1% SOLN Place 1 drop to affected eye 2 times daily Taking Hist orical Provider, levothyroxine (SYNTHROID) 50 mcg tablet Take 50 mcg by mouth every morning (before ). Taking Historical Provider, losartan (COZAAR) 50 mg tablet Take 50 mg by mouth 2 times daily. Taking Historical Kenny zuniga MD UNABLE TO FIND Newhall eye drops: 1 drop in each eye as needed for dry eyes Taking Historic al MD Fran Medication review performed and electronically signed by Laura Pinto, Pv Design And Installation Technician 12/18/2018 11:24 Reviewed by Mackenzie Del Castillo, PharmD 12/18/2018 11:44 Amos Trevino MD - 12/18/2018 7:25 AM PDT [facility] [place] H[facility]ITAL[facility] PROGRESS NOTE Patient: Sarina Zimmerman : 1930: Age: 88 y.o. MedRec: [id number] Admission date: 12/18/2018 Hospital day # : [...] Dr. Ceballos contacted by fartun be on [facility] today - Changed to atorvastatin - [...] Q4H PRN carvedilol 3.125 mg Oral BID clopidogrel 75 mg Oral Daily influenza IM [...] Daily Niru Parrish MD 75 mg at 258 influenza quadrivalent (FLUZONE, FLUARIX, AFLURIA QUADRIVALENT) vaccine injection (syri nge) 0.5 mL 0.5 mL Intramuscular One Time Vaccine Niru Parrish MD losartan (COZAAR) tablet 25 mg 25 mg Oral Daily Niru Parrish MD 25 mg at 12/18 morphine injection 2 mg 2 mg Intravenous [...] Procedure Component Value Units Date/Time Culture, MRSA [[id number]] Collected: 12/18/18 0133 Order Status: Sent Lab Status: In process [...] 3 Amos Duncan MD 12/18/2018 7:25 [facility] documented in this e ncounter Plan [...] [address] | [place] | [phone] | | [facility] | | [address] | | | - LABORATORY | | [...] | | | | | M/uL | [facility] | | | | | | MEDICAL | | | | | | CENTER - | | | | | | LABORATORY | | + + + + + + | Hemoglobin | 13.1 | 11.5 - 16.0 | [facility] | | | | | g/dL | [facility] | | | | [...] | | Count | | | [facility] | | [...] | | | | | | [facility] | | | | | | MEDICAL [...] | Eosinophils | | K/uL | [facility] | | | | | | MEDICAL | | | | | | CENTER - | | | | | | LABORATORY | | + + + + + + | Absolute | 0.04 | 0.00 - 0.10 | [facility] | | | Basophils | | K/uL | [facility] | [...] | + + + + + | [facility] | [address] | [place] | [phone] | | [facility] | | [address] | | | - LABORATORY | | [...] | | | | mmol/L | [facility] | | | | | | MEDICAL | | | | | | CENTER - | | | | | | LABORATORY | | + + + + + + | K | 3.7 | 3.4 - 5.1 | [facility] | | | | | mmol/L | [facility] | | | | [...] 96 | 60 - 106 mg/dL | [facility] | | | | | | [facility] | | | | | | MEDICAL | | | | | | CENTER - | | | | | | LABORATORY | | + + + + + + | BUN | 15 | 9 - 23 mg/dL | [facility] | | | | | | [facility] | | | | | | MEDICAL | | | | | | CENTER - | | | | | | LABORATORY | | + + + + + + | Creatinine | 0.71 | 0.55 - 1.02 | [facility] | | | | | mg/dL | [facility] | | | | | | MEDICAL | | | | | | CENTER - | | | | | | LABORATORY | | + + + + + + | eGFR if not | >60Comment: GLOMERULAR | >=60 | [facility] | | | | FILTRATION | mL/min/1.73m2 | [facility] | | | CAMEROONIAN | RATE,ESTIMATED | | MEDICAL | | | | mL/min/1.67l8Wwsx than | | CENTER - | | [...] [address] | [place] | [phone] | | [facility] | | [address] | | | - LABORATORY | | [...] ST. | [address] | [place] | [phone] | | [facility] | | [address] | | | - LABORATORY | | [...] | | | | g/dL | [facility] | | | | [...] [facility] | | | | | | [facility] | | | | | | [...] | | | | | g/dL | [facility] | | | | | | [...] | | Neutrophils | | | [facility] | | | | | | MEDICAL [...] | Basophils | | K/uL | [facility] | [...] + | [facility] | [address] | [place] | [phone] | | [facility] | | [address] | | | - LABORATORY | | [...] | | | | mg/dL | [facility] | | | | | | MEDICAL | | | | | | CENTER - | | | | | | LABORATORY | | + + + + + + | eGFR if not | >60Comment: GLOMERULAR | >=60 | [facility] | | | | FILTRATION | mL/min/1.73m2 | [facility] | | | [facility]ERO[facility]IAN | RATE,ESTIMATED | | MEDICAL | | | | mL/min/1.27r3Vfzj than | | CENTER - | | [...] | | ine Ratio | | | [facility] | | | | | | [...] ST. | [address] | [place] | [phone] | | [facility] | | [address] | | | - LABORATORY | | [...] | | | | | | [employer] | | | | | [...] [address] | [place] | [phone] | | [facility] | | [address] | | | - LABORATORY | | | | + + + + + CK Total (12/19/2018 3:44 AM PDT) + +---------+ + + + | Component | Value | Ref Range | Performed | Pathologist | | | | | At | Signature | + +---------+ + + + | CK TOTAL | 167 (H) | 34 - 145 U/L | [facility] | | | | | [...] [address] | [place] | [phone] | | [facility] | | [address] | | | - LABORATORY | | [...] MD | | | | | | ([id number]) on 12/19/2018 | | | | | [...] medications administered by the | | | [place] nurse under my supervision. Patient tolerated procedure [...] 257 (H) | 125 - 175 | [facility] [...] + + + + + | [facility] | [address] | [place] | [phone] | | [facility] | | [address] | | | - LABORATORY | | | | + + + + + POC ACT (12/18/2018 5:43 PM PDT) + + + + + + | Component | Value | Ref Range | Performed | Pathologist | | | | | At | Signature | + + + + + + | Activated | >400 (HH) | 125 - 175 | [facility] | | | Clotting | | second(s) | [facility] | | | Time, POC | [...] | + + + + + | [facility] | [address] | [place] | [phone] | | [facility] | | [address] | | | - LABORATORY | | [...] + | [facility] | [address] | [place] | [phone] | | [facility] | | [address] | | | - LABORATORY | | | | + + + + + Troponin I (12/18/2018 12:02 PM PDT) + + + + + + | Component | Value | Ref Range | Performed | Pathologist | | | | | At | Signature | + + + + + + | Troponin I | 3.59 ()Comment: | <0.06 ng/mL | [facility] | | | | Consistent with previous | | [facility] | | | | results. | | [...] | | | | | | [employer] | | | | | [...] + | [facility] | [address] | [place] | [phone] | | [facility] | | [address] | | | - LABORATORY | | [...] | | | | Comment:Reference | | [facility] | | | | Ranges: 0.00-0.06 [...] | | | | | | [employer] | | | | | [...] + | [facility] | [address] | [place] | [phone] | | [facility] | | [address] | | | - LABORATORY | | [...] | | | | MARIS MCCALLUM MD ([id number]) | | | | | | on [...] | | | Comment:Reference | | [facility] | | | | Ranges: 0.00-0.06 = [...] | | | | | | [employer] | | | | | [...] [address] | [place] | [phone] | | [facility] | | [address] | | | - LABORATORY | | [...] | | Time | | seconds | [facility] | | | | [...] + | [facility] | [address] | [place] | [phone] | | [facility] | | [address] | | | - LABORATORY | | | | + + + + + CBC with Differential (12/18/2018 3:10 AM PDT) + + + + + + | Component | Value | Ref Range | Performed | Pathologist | | | | | At | Signature | + + + + + + | WBC | 6.0 | 4.0 - 11.0 K/uL | [facility] | | | | | | [facility] | | | | | | MEDICAL | | | | | | CENTER - | | | | | | LABORATORY | | + + + + + + | RBC | 4.27 | 3.70 - 5.20 | [facility] | | | | | M/uL | [facility] | | | | [...] | | Immature | | K/uL | [facility] | | | Granulocyte | | [...] ST. | [address] | [place], [place] | [phone] | | [facility] | | [address] | | | - LABORATORY | | [...] [address] | [place] | [phone] | | [facility] | | [address] | | | - LABORATORY | | | | + + + + + Lipid Panel (12/18/2018 3:10 AM PDT) + +---------+ + + + | Component | Value | Ref Range | Performed | Pathologist | | | | | At | Signature | + +---------+ + + + | Triglycerid | 232 (H) | <=150 mg/dL | [facility] | | | es | | | [facility] | | [...] + | [facility] | [address] | [place], [place] | [phone] | | [facility] | | [address] | | | - LABORATORY | | [...] | | | | | mg/dL | [facility] | | | | | | MEDICAL | | | | | | CENTER - | | | | | | LABORATORY | | + + + + + + | eGFR if not | >60Comment: GLOMERULAR | >=60 | [facility] | | | | FILTRATION | mL/min/1.73m2 | [facility] | | | [facility] | RATE,ESTIMATED | | MEDICAL | | | | mL/min/1.15n9Abjs than | | CENTER - | | [...] | | ine Ratio | | | . [facility] | | [...] ST. | [address] | [place] | [phone] | | [facility] | | [address] | | | - LABORATORY | | [...] | + + + + + | [facility] | [address] | [place] | [phone] | | [facility] | | [address] | | | - LABORATORY | | [...] episode of care unspecified | + + documented in this encounter [...] | | +---+---+ + +-------+ +--------+---+---+ | fentaNYL (PF) injection ONCE | Given | 12/19/19 | 25 mcg | | | | PRN, Starting 12/18/18 at | | 19 5:44 | | | | | 1706, Intra-op | | PM PDT | | | | + +-------+ +--------+---+---+ +-------+ +--------+---+---+ | Given | 12/19/19 | 25 mcg | | | | | 19 5:40 | | | | | | PM PDT | | | | +-------+ +--------+---+---+ | Given | 12/19/19 | 50 mcg | | | | | 19 5:06 | | | | | | PM PDT | | | | +-------+ +--------+---+---+ +---+---+ | | | +---+---+ + +-------+ +--------+---+---+ | heparin 1,000 units/mL | Given | 12/19/19 | 2,000 | | | | injection ONCE PRN, Starting Tue | | 19 5:28 | Units | | | | 12/18/18 at 1718, Intra-op | | PM PDT | | | | + +-------+ +--------+---+---+ +-------+ +--------+---+---+ | Given | 12/19/19 | 5,000 | | | | | 19 5:18 | Units | | | | | PM PDT | | | | +-------+ +--------+---+---+ +---+---+ | | | +---+---+ + +-------+ +-------+---+---+ | hydrALAZINE (APRESOLINE) | Given | 12/19/19 | 10 mg | | | | injection ONCE PRN, Starting Tue | | 19 5:39 | | | | | 12/18/18 at 1730, Intra-op | | PM PDT | | | | + +-------+ +-------+---+---+ +-------+ +-------+---+---+ | Given | 12/19/19 | 10 mg | | | | | 19 5:30 | | | | | | PM PDT | | | | +-------+ +-------+---+---+ +---+---+ | | | +---+---+ + +-------+ +---------+---+---+ | iohexol (OMNIPAQUE 350) 350 | Given | 12/19/19 | 175 mLs | | | | mg/mL injection ONCE PRN, | | 19 6:06 | | | | | Starting 12/18/18 at 1806, | | PM PDT | | | | | Intra-op | | | | | | + +-------+ +---------+---+---+ +---+---+ | | | +---+---+ + +-------+ +-------+---+ + | lidocaine 1% injection ONCE | Given | 12/19/19 | 9 mLs | | Surgical | | PRN, Starting 12/18/18 at | | 19 5:12 | | | Site | | 1707, Intra-op | | PM PDT | | | | + +-------+ +-------+---+ + +-------+ +-------+---+ + | Given | 12/19/19 | 3 mLs | | Surgical | | | 19 5:07 | | | Site | | | PM PDT | | | | +-------+ +-------+---+ + +---+---+ | | | +---+---+ + [...] | | +---+---+ + +-------+ +--------+---+---+ | midazolam (VERSED) 1 mg/mL | Given | 12/19/19 | 0.5 mg | | | | injection ONCE PRN, Starting Tue | | 19 5:50 | | | | | 12/18/18 at 1706, Intra-op | | PM PDT | | | | + +-------+ +--------+---+---+ +-------+ +------+---+---+ | Given | 12/19/19 | 1 mg | | | | | 19 5:06 | | | | | | PM PDT | | | | +-------+ +------+---+---+ +---+---+ | | | +---+---+ + +-------+ +-------+---+---+ | niCARdipine in saline (CARDENE) | Given | 12/19/19 | 3 mLs | | | | 100 mcg/mL syringe ONCE PRN, | | 19 5:08 | | | | | Starting 12/18/18 at 1708, | | PM PDT | | | | | Intra-op | | | | | | + +-------+ +-------+---+---+ +---+---+ | | | +---+---+ + +-------+ +---------+---+---+ | nitroglycerin 100 mcg/mL | Given | 12/19/19 | 500 mcg | | | | syringe ONCE PRN, Starting Tue | | 19 5:56 | | | | | 12/18/18 at 1708, Intra-op | | PM PDT | | | | + +-------+ +---------+---+---+ +-------+ +---------+---+---+ | Given | 12/19/19 | 300 mcg | | | | | 19 5:08 | | | | | | PM PDT | | | | +-------+ +---------+---+---+ +---+---+ | | | +---+---+ + +-------+ [...] +-------+ +------+---+---+ +---+---+ | | | +---+---+ documented in this encounter
--- OUTSIDE RECORDS SUMMARY | ~2019-01-09 | XMS | Clinical Summary ---
Demographics + + + | Address | [address] | | | [place] [address] | + + + | Home Phone | | + + + | Preferred Language | Unknown | + + + | Marital Status | | + + + | Jewish Affiliation | Unknown | + + + | Race | Unknown | + + + | Ethnic Group | Unknown | + + + Author + + + | Author | [facility] | | | and [place] | + + + | Organization | [facility] | | | and [place] | + + + | Address | Unknown | + + + | Phone | Unavailable | + + + Support + + + + + | Name | Relationship | Address | Phone | + + + + + | Kaley Zimmerman | ECON | [place] | | | | | [address] | | + + + + + Care Team Providers + +------+ + | Care Dean Of Education Name | Role | Phone | + +------+ + | Seun Bojorquez MD | PCP | | + +------+ + Allergies + + + + + + | Active Allergy | Reactions | Severity | Noted | Comments | | | | | Date | | + + + + + + | Aspirin | Hives | | 12/19/19 | | | | | | 19 | | + + + + + + Medications + + + +---------+------+------+-------+ | Medication | Sig | Dispensed | Refills | Star | End | Statu | | | | | | t | Date | s | | | | | | Date | | | + + + +---------+------+------+-------+ | brimonidine | Place 1 drop to | | 0 | | | Activ | | (ALPHAGAN P) 0.1% | affected eye 2 times | | | | | e | | SOLN | daily | | | | | | + + + +---------+------+------+-------+ | levothyroxine | Take 50 mcg by mouth | | 0 | | | Activ | | (SYNTHROID) 50 mcg | every morning | | | | | e | | tablet | (before breakfast). | | | | | | + + + +---------+------+------+-------+ | acetaminophen | Take 500 mg by mouth | | 0 | | | Activ | | (TYLENOL) 500 mg | every 6 hours as | | | | | e | | tablet | needed for Pain. | | | | | | + + + +---------+------+------+-------+ | UNABLE TO FIND | [place] eye drops: 1 | | 0 | | | Activ | | | drop in each eye as | | | | | e | | | needed for dry eyes | | | | | | + + + +---------+------+------+-------+ | atorvaSTATin | Take 1 tablet by | 30 | 1 | 10/2 | | Activ | | (LIPITOR) 80 MG | mouth nightly. | tablet | | 4/20 | | e | | tablet | | | | 19 | | | + + + +---------+------+------+-------+ | clopidogrel | Take 1 tablet by | 30 | 1 | 10/2 | | Activ | | (PLAVIX) 75 mg | mouth Daily. | tablet | | 4/20 | | e | | tablet | | | | 19 | | | + + + +---------+------+------+-------+ | metoprolol | Take 1 tablet by | 30 | 1 | 10/2 | | Activ | | succinate | mouth Daily. | tablet | | 4/20 | | e | | (TOPROL-XL) 50 mg 24 | | | | 19 | | | | hr tablet | | | | | | | + + + +---------+------+------+-------+ | losartan (COZAAR) | Take 1 tablet by | 30 | 1 | 10/2 | | Activ | | 50 mg tablet | mouth Daily. | tablet | | 4/20 | | e | | | | | | 19 | | | + + + +---------+------+------+-------+ | losartan (COZAAR) | Take 50 mg by mouth | | 0 | | 10/2 | Disco | | 50 mg tablet | 2 times daily. | | | | 4/20 | ntinu | | | | | | | 19 | ed | + + + +---------+------+------+-------+ Active Problems + + + | Problem | Noted Date | + + + | NSTEMI (non-ST elevated myocardial infarction) | 12/18/2018 | + + + Encounters +--------+ + + + + | Date | Type | Specialty | Care Team | Description | +--------+ + + + + | 12/28/ | Telephone | Radiology | Shaka Antoine, | Follow-up | | 2019 | | | RN | | +--------+ + + + + | 12/25/ | Telephone | Cardiology | Aurelio Ceballos MD | Other (Needs | | 2018 | | | | appointment, | | | | | | declined plans to | | | | | | see Global Supply Chain Vice President in | | | | | | [place]) | +--------+ + + + + | 12/20/ | Imaging | Radiology | Fran, | | 2018 | Exam | | MD Enriqueta | | +--------+ + + + + | 12/20/ | Hospital | Rehabilitation | Jacob Garcia, | | | 2018 | Encounter | | OT | | +--------+ + + + + | 12/18/ | Surgery | Radiology | Aurelio Ceballos MD | CV COR ANGIO | | 2018 | | | | | +--------+ + + + + | 12/18/ | Hospital | | Ebueku-Buck, | NSTEMI (non-ST | | 2019 - | Encounter | | MD Perla Marrufo, | elevated myocardial | | | | | MD Amos | infarction) ([facility]); | | 12/20/ | | | | Essential | | 2019 | | | | hypertension; | | | | | | Hypothyroidism, | | | | | | unspecified type; | | | | | | Glaucoma, | | | | | | unspecified glaucoma | | | | | | type, unspecified | | | | | | laterality | +--------+ + + + + from Last 3 Months Immunizations + + + + | Name | Administration Dates | Next Due | + + + + | INFLUENZA PF | 12/19/2018 | | | QUAD(PED/ADOL/ADULT) | | | | ,PSKT or VIAL | | | + + + + Social History + [...] | + + Last Filed Vital Signs + + + [...] | | + + + + + Plan of Treatment + + + + + | Health Maintenance | Due Date | Last Done | Comments | + + + + + | Vaccine: | | | | | Pneumococcal 65+ (1 | 5 | | | | of 2 - PCV13) | | | | + + + + + | Vaccine: Zoster (2 | | 02/19/2014, 08/24/2013 | | | of 3) | 5 | | | + + + + + | Adult Annual | | | | | Wellness Visit | 9 | | | + + + + + | Vaccine: | | 07/30/2015 | | | Dtap/Tdap/Td (2 - | 6 | | | | Td) | | | | + + + + + | Vaccine: Influenza | Completed | 12/19/2018, 11/27/2017, | | | | | 01/07/2016, Additional history | | | | | exists | | + + + + + Implants + +--------+-------+ +--------+--------+--------+ | Implanted | Type | Area | Manufacture | Device | Shelf | Model | | | | | r | | Expira | / | | | | | | Identi | tion | Serial | | | | | | fier | Date | / Lot | + +--------+-------+ +--------+--------+--------+ | Angioseal Vip 6f - | Generi | N/A: | TERUMO LV | [id number] | 07/27/ | [id number] | | [id number]: Qty: 1 | c | Heart | - TERU | [id number] | 2019 | / | | on 12/18/2018 by Aurelio Ceballos | | | | 20 | | /[id number] | | MD Jose M at [facility] | | | | | | 400 | | [facility] | | | | | | | + +--------+-------+ +--------+--------+--------+ | Angioseal Vip 6f - | Generi | N/A: | TERUMO LV | | | [id number] | | [id number]: Qty: 1 | c | Leg | - TERU | | | / / | | on 12/18/2018 by Aurelio Ceballos | | | | | | | | MD Jose M at [facility] | | | | | | | | [facility] | | | | | | | + +--------+-------+ +--------+--------+--------+ | Stent Markel Synergy Mr 3.0 X 12 | Stent | | [place] | [id number] | 06/04/ | [id number] | | - [id number]: Qty: | | | SCIENTIFIC | [id number] | 2021 | [id number] | | 1 on 12/18/2018 by Tucker, | | | LV - BSCI | 53 | | 00 / | | Aurelio Salguero MD at [facility] | | | | | | /[id number] | | [facility] | | | | | | 088 | | CENTER | | | | | | | + +--------+-------+ +--------+--------+--------+ + + | Description:OM1 | + + + +---+---+ +--------+--------+--------+ | Stent Crmiguely Xieolvine | | | JAVED | [id number] | 10/14/ | [id number] | | [id number] - | | | VASCULAR - | [id number] | 2020 | 0-15 / | | [id number]: Qty: 1 | | | ABVA | 93 | | | | on 12/18/2018 by Aurelio Ceblalos | | | | | | /[id number] | | MD Jose M at [facility] | | | | | | [phone] | | [facility] | | | | | | 04 | + +---+---+ +--------+--------+--------+ + + | Description:MID LAD | + + + +---+-------+ +--------+--------+--------+ | Stent Mckay Hearn | | N/A: | JAVED | [id number] | 04/02/ | [id number] | | [id number] - | | Heart | VASCULAR - | [id number] | 2020 | 0-18 / | | [id number]: Qty: 1 | | | ABVA | 64 | | | | on 12/18/2018 by Aurelio Ceballos | | | | | | /[id number] | | MD Jos eM at [facility] | | | | | | [phone] | | [facility] | | | | | | 57 | + +---+-------+ +--------+--------+--------+ + + | Description:DISTAL RCA | + + Procedures + +--------+ + + + | [...] section. | + +--------+ + + + from Last 3 Months Results ECG - EXTERNAL SCAN (12/27/2018 12:00 AM PDT)Only the most recent of 2 results within the period is included. + + + | Narrative | Performed At | + + + | Ordered by an | | | unspecified provider. | | + + + CBC with Differential (12/20/2018 5:08 AM PDT)Only the most recent of 3 results within the time period is included. + + + + + + | Component | Value | Ref Range | Performed | Pathologist | | | | | At | Signature | + + + + + + | WBC | 5.9 | 4.0 - 11.0 K/uL | [facility] | | | | | | [facility] | | | | | | [facility] | | | | | [facility] - | | | | | | LABORATORY | | + + + + + + | RBC | 4.21 | 3.70 - 5.20 | [facility] | | | | | M/uL | [facility] | | | | | | [facility] | | | | | | C[facility] - | | | | | | LABORATORY | | + + + + + + | Hemoglobin | 13.1 | 11.5 - 16.0 | [facility] | | | | | g/dL | [facility] | | | | | | MEDICAL | | | | | | CENTER - | | | | | | LABORATORY | | + + + + + + | Hematocrit | 38.8 | 34.0 - 47.0 % | [facility] | | | | | | [facility] | | | | | | [facility]ICAL | | | | | | CENTER - | | | | | | LABORATORY | | + + + + + + | MCV | 92.2 | 83.0 - 101.0 fL | [facility] | | | | | | [facility] | | | | | | MEDICAL | | | | | | CENTER - | | | | | | LABORATORY | | + + + + + + | MCH | 31.1 | 28.0 - 35.0 pg | [facility] | | | | | | [facility] | | | | | | MEDICAL | | | | | | CENTER - | | | | | | LABORATORY | | + + + + + + | MCHC | 33.8 | 32.0 - 36.0 | [facility] | | | | | g/dL | [facility] | | | | | | [facility] | | | | | | CENTER - | | | | | | LABORATORY | | + + + + + + | RDW-CV | 12.2 | <15.0 % | [facility] | | | | | | [facility] | | | [facility] | [facility] | | | | | | CENTER - | | | | | | LABORATORY | | + + + + + + | RDW-SD | 41.6 | 35.1 - 46.3 fL | [facility] | | | | | | [facility] | | | | | | [facility] | | | | | | CENTER - | | | | | | LABORATORY | | + + + + + + | Platelet | 176 | 140 - 440 K/uL | [facility] | | | Count | | | [facility] | | | | | | [facility]ICAL | | | | | | CENTER - | | | | | | LABORATORY | | + + + + + + | MPV | 8.8 | 6.5 - 12.4 fL | [facility] | | | | [facility] | [facility] | [facility] | | | | | | C[facility] - | | | | | | LABORATORY | | + + + + + + | % | 55.5 | 45.0 - 82.0 % | [facility] | | | Neutrophils | | | [facility] | | | | | | MEDICAL | | | | | | CENTER - | | | | | | LABORATORY | | + + + + + + | % | 27.3 | 20.0 - 45.0 % | [facility] | | | Lymphocytes | | | [facility] | | | | | | MEDICAL | | | | | | CENTER - | | | | | | LABORATORY | | + + + + + + | % Monocytes | 13.2 (H) | 4.0 - 12.0 % | [facility] | | | | | | [facility] | | | | | | [facility]ICAL | | | | | | CENTER - | | | | | | LABORATORY | | + + + + + + | % | 3.0 | 0.0 - 5.0 % | [facility] | | | Eosinophils | | | [facility] | | | | | | MEDICAL | | | | | | CENTER - | | | | | | LABORATORY | | + + + + + + | % Basophils | 0.7 | 0.0 - 1.0 % | [facility] | | | | | | [facility] | | | | | | MEDICAL | | | | | | CENTER - | | | | | | LABORATORY | | + + + + + + | % Immature | 0.3 | 0.0 - 0.4 % | [facility] | | | Granulocyte | | | [facility] | | | s | | | MEDICAL | | | | | | CENTER - | | | | | | LABORATORY | | + + + + + + | Absolute | 3.29 | 1.80 - 8.50 | [facility] | | | Neutrophils | | K/uL | [facility] | | | | | | MEDICAL | | | | | | CENTER - | | | | | | LABORATORY | | + + + + + + | Absolute | 1.62 | 0.60 - 3.20 | [facility] | | | Lymphocytes | | K/uL | [facility] | | | | | | MEDICAL | | | | | | CENTER - | | | | | | LABORATORY | | + + + + + + | Absolute | 0.78 | 0.00 - 1.00 | [facility] | | | Monocytes | | K/uL | [facility] | | | | | | MEDICAL | | | | | | CENTER - | | | | | | LABORATORY | | + + + + + + | Absolute | 0.18 | 0.00 - 0.40 | [facility] | | | Eosinophils | | K/uL | [facility] | | | | | | MEDICAL | | | | | | CENTER - | | | | | | LABORATORY | | + + + + + + | Absolute | 0.04 | 0.00 - 0.10 | [facility] | | | Basophils | | K/uL | [facility] | | | | | | MEDICAL | | | | | | CENTER - | | | | | | LABORATORY | | + + + + + + | Absolute | 0.02 | 0.00 - 0.03 | [facility] | | | Immature | | K/uL | [facility] | | | Granulocyte | | | MEDICAL | | | s | | | CENTER - | | | | | | LABORATORY | | + + + + + + | % nRBC | 0 | 0 - 2 per 100 | [facility] | | | | | WBCs | [facility] | | | | | | MEDICAL | | | | | | CENTER - | | | | | | LABORATORY | | + + + + + + | Absolute | 0.00 | 0.00 - 0.01 | [facility] | | | nRBC | | K/uL | [facility] | | | | | | MEDICAL [...] + + | [facility] | [address] | [place] | [phone] | | [facility] | | [address] | | | - LABORATORY | | | | + + + + + Magnesium (12/20/2018 5:08 AM PDT)Only the most recent of 3 results within the time period is included. + +-------+ + + + | Component | Value | Ref Range | Performed | Pathologist | | | | | At | Signature | + +-------+ + + + | Magnesium | 2.0 | 1.6 - 2.6 mg/dL | [facility] | | | | | | [facility] | | | | | | MEDICAL [...] [address] | [place] | [phone] | | [facility] | | [address] | | | - LABORATORY | | | | + + + + + Basic Metabolic Panel (12/20/2018 5:08 AM PDT)Only the most recent of 3 results within the time period is included. + + + + + + | Component | Value | Ref Range | Performed | Pathologist | | | | | At | Signature | + + + + + + | Na | 136 | 136 - 145 | [facility] | | | | | mmol/L | [facility] | | | | | | MEDICAL | | | | | | CENTER - | | | | | | LABORATORY | | + + + + + + | K | 3.7 | 3.4 - 5.1 | [facility] | | | | | mmol/L | [facility] | | | | | | MEDICAL | | | | | | CENTER - | | | | | | LABORATORY | | + + + + + + | Cl | 104 | 98 - 107 mmol/L | [facility] | | | | | | [facility] | | | | | | MEDICAL | | | | | | CENTER - | | | | | | LABORATORY | | + + + + + + | CO2 | 24 | 20 - 31 mmol/L | [facility] | | | | | | [facility] | | | | | | MEDICAL | | | | | | CENTER - | | | | | | LABORATORY | | + + + + + + | Anion Gap | 8 | 3 - 16 mmol/L | [facility] | | | | | | [facility] | | | | | | MEDICAL | | | | | | CENTER - | | | | | | LABORATORY | | + + + + + + | Glucose | 96 | 60 - 106 mg/dL | [facility] | | | | | | [facility] | | | | | | MEDICAL | | | | | | CENTER - | | | | | | LABORATORY | | + + + + + + | BUN | 15 | 9 - 23 mg/dL | [facility] | | | | | | [facility] | | | | | | MEDICAL | | | | | | CENTER - | | | | | | LABORATORY | | + + + + + + | Creatinine | 0.71 | 0.55 - 1.02 | [facility] | | | | | mg/dL | [facility] | | | | | | MEDICAL | | | | | | CENTER - | | | | | | LABORATORY | | + + + + + + | eGFR if not | >60Comment: GLOMERULAR | >=60 | [facility] | | | | FILTRATION | mL/min/1.73m2 | [facility] | | | PANAMANIAN | RATE,ESTIMATED | | MEDICAL | | | | mL/min/1.11z4Cfni than | | CENTER - | | [...] | | | | mg/dL | [facility] | | | | | | MEDICAL | | | | | | CENTER - | | | | | | LABORATORY | | + + + + + + | BUN/Creatin | 21.1 | | [facility] | | | ine Ratio | | | [facility] | | | | | | MEDICAL [...] | + + + + + | [facility] | [address] | [place] | [phone] | | [facility] | | [address] | | | - LABORATORY | | | | + + + + + Troponin I (12/19/2018 3:44 AM PDT)Only the most recent of 4 results within the time ricarda webber is included. + + + + + + | Component | Value | Ref Range | Performed | Pathologist | | | | | At | Signature | + + + + + + | Troponin I | 4.20 ()Comment: | <0.06 ng/mL | [facility] | | | | Comment:Reference | | [facility] | | | | Ranges: 0.00-0.06 = [...] | | | | | | [employer] | | | | | [...] + | [facility] | [address] | [place] | [phone] | | [facility] | | [address] | | | - LABORATORY | | | | + + + + + CK Total (12/19/2018 3:44 AM PDT) + +---------+ + + + | Component | Value | Ref Range | Performed | Pathologist | | | | | At | Signature | + +---------+ + + + | CK TOTAL | 167 (H) | 34 - 145 U/L | [facility] | | | | | | [facility] | | | | | | MEDICAL [...] [address] | [place] | [phone] | | [facility] | | [address] | | | - LABORATORY | | | | + + + + + ECG 12 lead (12/18/2018 6:40 PM PDT)Only the most recent of 2 results within the time richard od is included. + + + + + + | [...] MD | | | | | | ([id number]) on 12/19/2018 | | | | | [...] medications administered by the | | | Lathe Setup Operator nurse under my supervision. Patient tolerated procedure [...] + + | Performing | Address | City/State/[place] [facility] | Phone Number | | Organization | | | | + +---------+ + + | [facility] | | | | + +---------+ + + POC ACT (12/18/2018 5:58 PM PDT)Only the most recent of 3 results within the time period i s included. + +---------+ + + + | Component | Value | Ref Range | Performed | Pathologist | | | | | At | Signature | + +---------+ + + + | Activated | 257 (H) | 125 - 175 | [facility] | | | Clotting | | second(s) | [facility] | | | Time, POC | | [...] + | [facility] | [address] | [place] | [phone] | | [facility] | | [address] | | | - LABORATORY | | [...] | | es | | | [facility] | | | | | | MEDICAL | | | | | | CENTER - | | | | | | LABORATORY | | + +---------+ + + + | Cholesterol | 222 (H) | <=200 mg/dL | [facility] | | | | | | [facility] | | | | | | MEDICAL | | | | | | CENTER - | | | | | | LABORATORY | | + +---------+ + + + | HDL | 40 | 40 - 60 mg/dL | [facility] | | | | | | [facility] | | | | | | MEDICAL | | | | | | CENTER - | | | | | | LABORATORY | | + +---------+ + + + | Chol/HDL | 5.6 | | [facility] | | | Ratio | | | [facility] | | | | | | MEDICAL | | | | | | CENTER - | | | | | | LABORATORY | | + +---------+ + + + | LDL, | 136 (H) | <=130 mg/dL | [facility] | | | Calculated | | | [facility] | | | | | | MEDICAL [...] ST. | [address] | [place] | [phone] | | [facility] | | [address] | | | - LABORATORY | | [...] | Time | | seconds | [facility] | | | | | | MEDICAL | | | | | | CENTER - | | | | | | LABORATORY | | + + + + + + | INR | 1.0Comment: Usual Oral | 0.9 - 1.1 | [facility] | | | | Anticoagulation Range: | | [facility] | | | | 2.0 - 3.0High [...] [address] | [place] | [phone] | | [facility] | | [address] | | | - LABORATORY | | | | + + + + + Culture, MRSA (12/18/2018 1:33 AM PDT) + + + + + + | Component | Value | Ref Range | Performed | Pathologist | | | | | At | Signature | + + + + + + | Culture | Negative for MRSA by | | [facility] | | | | chromogenic agar method. | | [facility] | | | | | | MEDICAL | | | | | | CENTER - | | | | | | LABORATORY | | + + + + + + | Culture | 2+ Coagulase positive | | [facility] | | | | Staphylococcus | | [facility] | | | | | | MEDICAL [...] [address] | [place] | [phone] | | [facility] | | [address] | | | - LABORATORY | | | | + + + + + XR Chest 2 Vws (12/17/2018 12:00 AM [...] | | | + +---------+ + + from Last 3 Months Insurance + +--------+ +--------+ +---------+--------+ | Payer | Benefi | Subscriber | Effect | Phone | Address | Type | | | t Plan | ID | lianna | | | | | | / | | Dates | | | | | | Group | | | | | | + +--------+ +--------+ +---------+--------+ | [employer] | [place] | [id number] | 02/27/19 | [phone] | | Medica | | | MDCR | | 19-Pre | 7 | | re | | | PLUS | | sent | | | | + +--------+ +--------+ +---------+--------+ | [employer] | [place] | [id number] | 02/27/19 | [phone] | | [place] | | | [place] | | 19-Pre | 7 | | re | | | GROUP | | sent | | | | | | HEALTH | | | | | | | | MDCR | | | | | | | | VISITI | | | | | | | | NG | | | | | | | | MEMBER | | | | | | | | S | | | | | | + +--------+ +--------+ +---------+--------+ + +--------+ +--------+ + + | Guarantor Name | Accoun | Relation to | Date | Phone | Billing Address | | | t Type | Patient | of | | | | | | | | | | + +--------+ +--------+ + + | Sarina Zimmerman | Person | Self [birth year] | [address] | | | al/Fam | | 1931 | [phone] | [place] [address] | | | huma | | | 2 (Home) | | + +--------+ +--------+ + + Advance Directives + + + + + | Type | Date Recorded | Patient | Explanation | | | | Salvage Winder | | + + + + + | Power of | | | | | Domestic Laundry Worker | | | | + + + + + | Advance | 12/18/2018 | | | | Directive | 10:00 AM | | | + + + + + + + + + + | Code Status | Date | Date | Comments | | | Activated | Inactivated | | + + + + + | Full Code | 12/18/2018 | 12/20/2018 | | | | 2:02 AM | 1:37 PM | | + + + + +
--- OUTSIDE RECORDS SUMMARY | ~2019-01-09 | XMS | Encounter Summary ---
Demographics + + + | Address | [address] | | | [place] [address] | + + + | Home Phone | | + + + | Preferred Language | Unknown | + + + | Marital Status | Single | + + + | Denominational Affiliation | Unknown | + + + [...] Team Providers + +------+ + | Care Pin Feather Machine Operator Name | Role | Phone | + +------+ + PCP | Unavailable | + +------+ + Encounter Details +--------+ + + + + | Date | Type | Department | Care Team | Description | +--------+ + + + + | 12/19/ | Procedure - | Epic at [facility] | Amy | Operative Report | | 2015 | | [address] | MD Curly [address] | | | | Transcribed | [place], [place] | [place], [place] | | | | | [phone] | [address] | | | | | | | [...] + + | OPERATION RECORD | | 12/19/2014 | | Results for this | | | | 8:10 AM | | procedure are in the | | | | PDT | | results section. | + +--------+ + + + documented in this encounter Results OPERATION RECORD (12/19/2014 8:10 AM PDT) + + | Procedure Note | + + | Service Account, Cc Doc In - 11/02/2016 9:20 AM PDT Patient: JESSE BURNETT | | Age: 84 years Sex: Female : 1930 | | Associated Diagnoses: None Author: Curly Reyes MD General Information | | Surgery: Day of Surgery. Anesthetic Utilized: MAC. Physical Examination | | VS/Measurements Vital Signs/Measurements Progress Note 12/11/2014 09:24 PDTTemperature | | Temporal Hsiolj11.3 DegC LOWPrimary Pain Luzaekfmj8Hgulfkqmol Pulse Rate61 bpmHeart | | Rate Vbngjxyww45 bpmSystolic Blood Cajqgdcc322 mmHg HIDiastolic Blood Ooywkrbg34 | | saKlViD341 % Respiratory: Airway Patent. Cardiovascular: Regular rhythm. Mental | | State: Alert. Pain (VAS): 0. Pain: none. Nausea/Vomiting: No Nausea/Vomiting. | | Post Operative Hydration: Well Hydrated. Assessment Anesthetic outcome No anesthetic | | complications noted. | | | |Surgery: Day of Surgery. | | | |Anesthetic Utilized: MAC. | | | | | | | |Physical Examination | | | |VS/Measurements | | | |Vital Signs/Measurements Progress Note | | | |12/11/2014 09:24 PDTTemperature Temporal Eurovm01.3 DegC LOWPrimary Pain [id number] ral Pulse Rate61 bpmHeart Rate Xeshalrqp07 bpmSystolic Blood Zmpillrs994 mmHg HIDiastolic B lood Kipbpaup04 [id number] % | | | | | | | |Respiratory: Airway Patent. | | | |Cardiovascular: Regular rhythm. | | | |Mental State: Alert. | | | |Pain (VAS): 0. | | | |Pain: none. | | | |Nausea/Vomiting: No Nausea/Vomiting. | | | |Post Operative Hydration: Well Hydrated. | | | | | | | |Assessment | | | |Anesthetic outcome | | | |No anesthetic complications noted. | + + documented in this encounter Visit Diagnoses Not on filedocumented in this encounter"
--- OUTSIDE RECORDS SUMMARY | ~2019-01-09 | XMS | Encounter Summary ---
Demographics + + + | Address | [address] | | | [place] [address] | + + + | Home Phone | | + + + | Preferred Language | Unknown | + + + | Marital Status | | + + + | Catholic Affiliation | Unknown | + + + | Race | Unknown | + + + | Ethnic Group | Unknown | + + + Author + + + | Author | [facility] | | | and [place] | + + + | Organization | [facility] | | | and [place] | + + + | Address | Unknown | + + + | Phone | Unavailable | + + + Support + + + + + | Name | Relationship | Address | Phone | + + + + + | Kaley Zimmerman | ECON | [place] | | | | | [address] | | + + + + + Care Team Providers + +------+ + | Care Doughmaker Name | Role | Phone | + [...] + + | 12/18/ | Surgery | [facility] | Aurelio Ceballos MD | CV COR ANGIO | | 2019 | | MED CTR CV INTRA OP | [address] | | | | | [address] | [place], [place] | | | | | [place], [place] | [address] | | | | | [address] | | | | | | [phone] | | | +--------+---------+ + + + [...] might be different fr om the original. [place] HOSPITALIST DISCHARGE SUMMARY Pt. Name/Age/: Sarina [...] (before breakfast). aka: SYNTHROID UNABLE TO FIND [place] eye drops: 1 drop in each eye [...] understood the risk of fal ling including manager terminal disability and . Uncontrolled Hypertension Hypertensive at outside hospital and here, she only took her morning dose of losartan. Impr kayleigh with losartan and metoprolol. Urinary retention Patient had limited voiding last night. Straight cath performed with 1 liter. Patient then had bladder scans to monitor. Likely 2/2 to sedation from [facility]. Resolved at time of discharge . [...] on discharge day PROCEDURES AND CONSULTS: Procedures [facility] Consults Card PENDING RESULTS: DISPOSITION AND DISCHARGE INSTRUCTIONS: Follow-up Information Seun Bojorquez MD In 1 week. Specialty: Internal Medicine Contact information: [address] [place] [address] Aurelio Ceballos MD In 1 week. Specialties: Interventional Cardiology, Cardiology Contact information: [address] [place] [address] Condition: Patient being discharged with condition improved Diet: Card Less than 30 minutes were spent on discharge and coordination of post-hospital care. Electronically signed by: Amos Duncan MD, 12/20/2018 8:32 [facility] Portions of this chart may have been created with [employer] voice recognition software. Occasi onal wrong-word or [...] heartbeat or fast pulse Date Last Reviewed: 11/28/201519996356-1168 [employer]. [address] [place] [address]. All righ ts reserved. This information is [...] matters outside of health, Date Last Reviewed: 07/29/201519990183-6598 [employer]. [address] [place] [address], [place] [address]. All righ ts reserved. This information is [...] + + | UNABLE TO FIND | Leith-[place]at[place] eye drops: 1 | | 0 | | | | | drop in each eye as | | | | | | | needed for dry eyes | | | | | + + + +---------+ + + documented as of this encounter Progress Notes Esthela Goldman RN - 12/20/2018 2:25 PM PDTDischarge instructions reviewed by pharmacy. A ll questions answered. Victoriano Lance, Carpet Finishing Supervisor - 12/20/2018 11:29 AM PDTDoromana Zimmerman was admitt ed for NSTEMI and discharged home today (12/20/2018) Taught AVS education to patient. Education was focused on new medications and/or changed me dications. I explained indication, how to take, possible side effects, when to contact physi chavo, and monitor parameters. The patient was encouraged to make a follow-up appointment with PCP and with tag writer. The patient verbalized understanding of the above and all questions were answered. Pharmaci st will follow-up with patient in one to two business days. Patient was provided with a myles nciled discharge medication list as part of their AVS instructions. Encouraged patient to sh are medication list with healthcare providers and keep list current. Victoriano Walton, Carpet Finishing Supervisor 12/20/2018 11:29 Amos Trevino MD - 12/19/2018 7:41 AM PD T [place] HOSPITALIST PROGRESS NOTE Patient: Sarina Zimmerman : 1930: Age: 88 y.o. MedRec: [id number] Admission date: 12/18/2018 Hospital day # : [...] Procedure Component Value Units Date/Time Culture, MRSA [[id number]] Collected: 12/18/18132 Order Status: Sent Lab Status: [...] x 3 Amos Duncan MD 12/19/2018 7:41 [facility] Mackenzie Olsen Pha rmD - 12/18/2018 11:49 [...] strength, and directions ? Pharmacy list names: [facility] ([place], [place]) Vaccines up to date? Influenza No Pneumococcal Yes Tdap Yes Shingles Yes Noted medications discrepancies or medication-related issues: Medication added: Medication: Prior to Admission Sig: Unable to find: [place] eye drops 1 drop in each eye [...] Recreational substances, Tobacco, and/or Alcohol Best possible CHIEF CARDIOPULMONARY TECHNOLOGIST medication list after pharmacy review: PT REPORTED [...] Historical Kenny zuniga MD UNABLE TO FIND [place] eye drops: 1 drop in each eye as needed for dry eyes Taking Historic al MD Fran Medication review performed and electronically signed by Laura Pinto, Hair Or Beauty Salon Manager 12/18/2018 11:24 Reviewed by Mackenzie Del Castillo, PharmD 12/18/2018 11:44 Amos Trevino MD - 12/18/2018 7:25 AM PDT [facility] [place] HOSPITALIST PROGRESS NOTE Patient: Sarina Zimmerman : 1930: Age: 88 y.o. MedRec: [id number] Admission date: 12/18/2018 Hospital day # : [...] Dr. Ceballos contacted by fartun be on [facility] today - Changed to atorvastatin - [...] Procedure Component Value Units Date/Time Culture, MRSA [[id number]] Collected: 12/18/18 0133 Order Status: Sent Lab [...] x 3 Amos Duncan MD 12/18/2018 7:25 [facility] documented in this e ncounter Plan of [...] [address] | [place] | [phone] | | [facility] | | [address] | | | - LABORATORY | | [...] [address] | [place] | [phone] | | [facility] | | [address] | | | - LABORATORY | | [...] 96 | 60 - 106 mg/dL | [facility] | | | | | | [facility] | | | | | [facility]ICAL | | | | | | CENTER - | | | | | | LABORATORY | | + + + + + + | BUN | 15 | 9 - 23 mg/dL | [facility] | | | | | | ST. [...] mL/min/1.73m2 | [facility] | | | [place] | RATE,ESTIMATED | | MEDICAL | | | | mL/min/1.61k4Kpxm than | | CENTER - | | [...] [address] | [place] | [phone] | | [facility] | | [address] | | | - LABORATORY | | [...] ST. | [address] | [place] | [phone] | | [facility] | | [address] | | | - LABORATORY | | [...] + | [facility] | [address] | [place] | [phone] | | [facility] | | [address] | | | - LABORATORY | | [...] mL/min/1.73m2 | [facility] | | | [place] | RATE,ESTIMATED | | MEDICAL | | | | mL/min/1.72k2Osfo than | | CENTER - | | [...] ST. | [address] | [place] | [phone] | | [facility] | | [address] | | | - LABORATORY | | [...] | | | | | | [employer] | | | | | [...] [address] | [place] | [phone] | | [facility] | | [address] | | | - LABORATORY | | [...] [address] | [place] | [phone] | | [facility] | | [address] | | | - LABORATORY | | [...] MD | | | | | | ([id number]) on 12/19/2018 | | | | | [...] medications administered by the | | | Basic Combatant Swimmer nurse under my supervision. Patient tolerated procedure [...] [address] | [place] | [phone] | | [facility] | | [address] | | | - LABORATORY | | [...] [address] | [place] | [phone] | | [facility] | | [address] | | | - LABORATORY | | [...] + | [facility] | [address] | [place] | [phone] | | [facility] | | [address] | | | - LABORATORY | | | | + + + + + Troponin I (12/18/2018 12:02 PM PDT) + + + + + + | Component | Value | Ref Range | Performed | Pathologist | | | | | At | Signature | + + + + + + | Troponin I | 3.59 ()Comment: | <0.06 ng/mL | [facility] | | | | Consistent with previous | | [facility] | | | | results. | | [...] | | | | | | [employer] | | | | | [...] + | [facility] | [address] | [place] | [phone] | | [facility] | | [address] | | | - LABORATORY | | [...] | | | | | | [employer] | | | | | [...] + | [facility] [facility] | [address] | [place] | [phone] | | [facility] | | [address] | | | - LABORATORY | | [...] | | | | MARIS MCCALLUM MD ([id number]) | | | | | | on [...] | | | | | | [employer] | | | | | [...] [address] | [place] | [phone] | | [facility] | | [address] | | | - LABORATORY | | [...] + | [facility] | [address] | [place] | [phone] | | [facility] | | [address] | | | - LABORATORY | | [...] ST. | [address] | [place], [place] | [phone] | | [facility] | | [address] | | | - LABORATORY | | [...] [address] | [place] | [phone] | | [facility] | | [address] | | | - LABORATORY | | [...] + | [facility] | [address] | [place], [place] | [phone] | | [facility] | | [address] | | | - LABORATORY | | [...] | mL/min/1.73m2 | [facility] | | | [place] | RATE,ESTIMATED | | MEDICAL | | | | mL/min/1.14c3Ycsa than | | CENTER - | | [...] ST. | [address] | [place] | [phone] | | [facility] | | [address] | | | - LABORATORY | | [...] | + + + + + | [facility] [facility] | [address] | [place] | [phone] | | [facility] | | [address] | | | - LABORATORY | | [...]
--- OUTSIDE RECORDS SUMMARY | ~2019-01-09 | XMS | Clinical Summary ---
Demographics + + + | Address | [address] | | | [place] [address] | + + + | Home Phone | | + + + | Preferred Language | Unknown | + + + | Marital Status | | + + + | Voodoo Affiliation | Unknown | + + + | Race | Unknown | + + + | Ethnic Group | Unknown | + + + Author + + + | Author | [facility] | | | and [place] | + + + | Organization | [facility] | [...] [place] | | | | | [address] | | + + + + + Care Team Providers + +------+ + | Care Preservationist Name | Role | Phone | + [...] + +---------+------+------+-------+ | UNABLE TO FIND | [place] eye drops: 1 | | 0 | [...] | | | | | | see Project Director in | | | | | | Stebbins) | +--------+ + + + + | [...] | | | MD Amos | infarction) ([facility]); | | 12/20/ | | | | [...] Generi | N/A: | TERUMO LV | [id number] | 07/27/ | [id number] | | [id number]: Qty: 1 | c | Heart | - TERU | [id number] | 2019 | / | | on 12/18/2018 by Aurelio Ceballos | | | | 20 | | /[id number] | | MD Jose M at [facility] | | | | | | 400 | | [facility] | | | | | | | + +--------+-------+ +--------+--------+--------+ | Angioseal Vip 6f - | Generi | N/A: | TERUMO LV | | | [id number] | | [id number]: Qty: 1 | c | Leg | - TERU | | | / / | | on 12/18/2018 by Aurelio Ceballos | | | | | | | | MD Jose M at [facility] | | | | | | | | [facility] | | | | | | | + +--------+-------+ +--------+--------+--------+ | Stent Markel Synergy Mr 3.0 X 12 | Stent | | [place] | [id number] | 06/04/ | [id number] | | - [id number]: Qty: | | | SCIENTIFIC | 657447 | 2021 | [id number] | | 1 on 12/18/2018 by Tucker, | | | LV - BSCI | 53 | | 00 / | | Aurelio Salguero MD at [facility] | | | | | | /[address] | | [facility] | | | | | | 088 | | CENTER | | | | | | | + +--------+-------+ +--------+--------+--------+ + + | Description:OM1 | + + + +---+---+ +--------+--------+--------+ | Stent Crmiguely Xieolvine | | | JAVED | 259002 | 10/14/ | 726382 | | [id number] - | | | VASCULAR - | 775720 | 2020 | 0-15 / | | [id number]: Qty: 1 | | | ABVA | 93 | | | | on 12/18/2018 by Aurelio Ceballos | | | | | | /[id number] | | MD Jose M at [facility] | | | | | | 674336 | | [facility] | | | | | | 04 | + +---+---+ +--------+--------+--------+ + + | Description:MID LAD | + + + +---+-------+ +--------+--------+--------+ | Stent Mckay Hearn | | N/A: | JAVED | [id number] | 04/02/ | 378181 | | [id number] - | | Heart | VASCULAR - | 251610 | 2020 | 0-18 / | | [id number]: Qty: 1 | | | ABVA | 64 | | | | on 12/18/2018 by Aurelio Ceballos | | | | | | /[id number] | | MD JoseM at [facility] | | | | | | 933598 | | [facility] | | | | | | 57 [...] [address] | [place] | [phone] | | [facility] | | [address] | | | - LABORATORY | | [...] [address] | [place] | [phone] | | [facility] | | [address] | | | - LABORATORY | | [...] | 0.71 | 0.55 - 1.02 | [facility] | | | | | mg/dL | [facility] | | | | | | MEDICAL | | | | | | CENTER - | | | | | | LABORATORY | | + + + + + + | eGFR if not | >60Comment: GLOMERULAR | >=60 | [facility] | | | | FILTRATION | mL/min/1.73m2 | [facility] | | | NIGERIAN | RATE,ESTIMATED | | MEDICAL | | | | mL/min/1.57z7Daly than | | CENTER - | | [...] + | [address] [facility] | [address] | [place] | [phone] | | [facility] | | [address] | | | - LABORATORY | | [...] | | | | Comment:Reference | | [facility] | | | | Ranges: 0.00-0.06 = [...] | | | | | | [employer] | | | | | [...] + | [facility] | [address] | [place] | [phone] | | [facility] | | [address] | | | - LABORATORY | | [...] [address] | [place] | [phone] | | [facility] | | [address] | | | - LABORATORY | | [...] MD | | | | | | ([id number]) on 12/19/2018 | | | | | [...] medications administered by the | | | Parking Enforcement Manager nurse under my supervision. Patient tolerated procedure [...] + + | Performing | Address | City/State[facility] | Phone Number | | Organization | [...] + | [facility] | [address] | [place] | [phone] | | [facility] | | [address] | | | - LABORATORY | | [...] ST. | [address] | [place] | [phone] | | [facility] | | [address] | | | - LABORATORY | | [...] [address] | [place] | [phone] | | [facility] | | [address] | | | - LABORATORY | | [...] | | chromogenic agar method. | | [facility] | | | | | | MEDICAL [...] [address] | [place] | [phone] | | [facility] | | [address] | | | - LABORATORY | | [...] +---------+--------+ | [employer] | [place] | [id number] | 02/27/19 | [phone] | | Medica | | | MDCR | | 19-Pre | 7 | | re | | | PLUS | | sent | | | | + +--------+ +--------+ +---------+--------+ | [employer] | [place] | [id number] | 02/27/19 | [phone] | | Medica | | | [place] [...] | | al/Fam | | 1931 | [phone] | [place] [address] | | | huma | | | 2 (Home) | | + +--------+ +--------+ + + Advance Directives + + + + + | Type | Date Recorded | Patient | Explanation | | | | Sales Agent Casualty Insurance | | + + + + + | Power of | | | | | Tooling Manager | | | | + + + [...]
--- OUTSIDE RECORDS SUMMARY | ~2019-01-09 | XMS | Encounter Summary ---
Demographics + + + | Address | [address] | | | [place] [address] | + + + | Home Phone | | + + + | Preferred Language | Unknown | + + + | Marital Status | Single | + + + | Jewish Affiliation [...] Team Providers + +------+ + | Care Senior Regulatory Affairs Specialist Name | Role | Phone | + +------+ + PCP | Unavailable | + +------+ + Encounter Details +--------+ + + + + | Date | Type | Department | Care Team | Description | +--------+ + + + + | 04/28/ | Results | | Other, Faculty | | | 1999 | Only | | [phone] | | +--------+ + + + + [...] | + +--------+ + + + | SPECIMEN ROUTING | Routin | 05/18/1999 | | Results for this | | | e | 3:00 PM | | procedure are in the | | | | PST | | results section. | + +--------+ + + + | DERMATOPATHOLOGY(WET | Routin | 04/29/1999 | | Results for this | | [place]) | e | | | procedure are in the | | | | | | results section. | + +--------+ + + + documented in this encounter Results SPECIMEN ROUTING (05/18/1999 3:00 PM PST) + + + + + + | Component | Value | Ref Range | Performed | Pathologist | | | | | At | Signature | + + + + + + | SAMPLE | Whole Blood | | [facility] | | | TYPE-ROUTIN | | | DEPARTMENT | | | G | | | OF | | | | | | PATHOLOGY | | + + + + + + | TEST | Hemochromatosis, DNA PCR | | [facility] | | | REQUESTED | | | DEPARTMENT | | | | | | OF | | | | | | PATHOLOGY | | + + + + + + | SENT TO | DNA Lab:[facility] [id number] | | [facility] | | | | | | DEPARTMENT | | | | | | OF | | | | | | PATHOLOGY | | + + + + + + + + | Specimen | + + | | + + + + + | Narrative | Performed At | + + + | Ordered by LAB CENTRAL | [facility] | | | DEPARTMENT OF | | | PATHOLOGY | + + + + + + + + | Performing | Address | City/State/Zipcode | Phone Number | | Organization | | | | + + + + + | [facility] DEPARTMENT OF | [address] | [place] [address] | | | PATHOLOGY | [address] | | | + + + + + | [place] DEPARTMENT OF | [address] [facility] [address] | [place] [address] | | | PATHOLOGY | [address] | | | + + + + + DERMATOPATHOLOGY(WET [place]) (04/29/1999) + + + + + + | Component | Value | Ref Range | Performed | Pathologist | | | | | At | Signature | + + + + + + | DERMATOPATH | SOURCE OF SPECIMEN: | | | | | OLOGY(WET | FIRST TISSUE LEVEL IV | | | | | MNT) | [address]24 CLINICAL | | | | | | DESCRIPTION:Punch, rt. | | | | | | arm, ?LP, ?drug eruption | | | | | | GROSS DESCRIPTION:Right | | | | | | arm, punch, 0.35 x | | | | | | 0.3cm, plus adipose | | | | | | MICROSCOPIC | | | | | | DESCRIPTION:There is | | | | | | hyperkeratosis, | | | | | | hypergranulosis, | | | | | | irregular epidermal | | | | | | hyperplasia,vacuolar | | | | | | alteration of the dermal | | | | | | epidermal interface and | | | | | | a band likeinfiltrate | | | | | | of lymphocytes and | | | | | | histiocytes throughout | | | | | | the upper part of | | | | | | thedermis. | | | | | | DIAGNOSIS:LICHEN PLANUS. | | | | | | TAMMY/jyi05/04/[address] | | | | | [facility], [place] | | | | | | [address] | | | | | | Diagnostician: Alex | | | | | | Sarina Zamora Jr., | | | | | | UrbanoPathologistElectroni | | | | | | marlyn Signed | | | | | | 05/04/1999Comment: | | | | | | SOURCE OF SPECIMEN: | | | | | | FIRST TISSUE LEVEL IV | | | | | | [address] | | | | + + + + + + + + | Specimen | + + | | + + + + + | Narrative | Performed At | + + + | Ordered by Luz Hopkins | | + + + + + + + + | Performing | Address | City/State/Zipcode | Phone Number | | Organization | | | | + + + + + | [facility] | [address] | [place] [address] | | | DERMATOPATHOLOGY | [address] | | | + + + + + documented in this encounter Visit Diagnoses Not on filedocumented in this encounter"
--- OUTSIDE RECORDS SUMMARY | ~2019-01-09 | XMS | Encounter Summary ---
Demographics + + + | Address | [address] | | | [place] [address] | + + + | Home Phone | | + + + | Preferred Language | Unknown | + + + | Marital Status | Single | + + + | Mormonism Affiliation | Unknown | + + + | Race | Unknown | + + + | Ethnic Group | Other Race | + + + Author + + + | Author | [facility] | + + + | Organization | [facility] | + + + | Address | Unknown | + + + | Phone | Unavailable | + + + Support + + +---------+ + | Name | Relationship | Address | Phone | + + +---------+ + | None None | ECON | Unknown | Unavailable | + + +---------+ + Care Team Providers + +------+ + | Care Sales Center Manager Name | Role | Phone | + +------+ + PCP | Unavailable | + +------+ + Encounter Details +--------+ + + + + | Date | Type | Department | Care Team | Description | +--------+ + + + + | 10/06/ | Documentati | [facility] | Clinic, Oncology | | | 2005 | on | [place] at | | | | | | [place] [address] | | | | | | [address] | | | | | | [place], [place] | | | | | | [address] | | | | | | [phone] | | | +--------+ + + + [...]
--- OUTSIDE RECORDS SUMMARY | ~2019-01-09 | XMS | Encounter Summary ---
Demographics + + + | Address | [address] | | | [place] [address] | + + + | Home Phone | | + + + | Preferred Language | Unknown | + + + | Marital Status | Single | + + + | Buddhism Affiliation | Unknown | + + + [...] Team Providers + +------+ + | Care Forest Supervisor Name | Role | Phone | + [...]
--- OUTSIDE RECORDS SUMMARY | ~2019-01-09 | XMS | Encounter Summary ---
Demographics + + + | Address | [address] | | | [place] [address] | + + + | Home Phone | | + + + | Preferred Language | Unknown | + + + | Marital Status | | + + + | Zoroastrianism Affiliation | Unknown | + + + | Race | Unknown | + + + | Ethnic Group | Unknown | + + + Author + + + | Author | [facility] | | | and [place] | + + + | Organization | [facility] | | | and [place] | + + + | Address | Unknown | + + + | Phone | Unavailable | + + + Support + + + + + | Name | Relationship | Address | Phone | + + + + + | Kaley Zimmerman | ECON | [place] | | | | | [address] | | + + + + + Care Team Providers + +------+ + | Care Tufter Operator Name | Role | Phone | + +------+ + | Seun Bojorquez MD | PCP | | + +------+ + Encounter Details +--------+ + + + + | Date | Type | Department | Care Team | Description | +--------+ + + + + | 12/20/ | [facility] | [facility] | Jacob Garcia, | | | 2018 | Encounter | MED CTR THERAPY OT | OT | | | | | ACUTE [address] | | | | | | [place] | | | | | | [address] | | | | | | [phone] | | | +--------+ + + + [...] + + documented as of this encounter Medications at Time of Discharge [...] | 1 | 12/20/20 | | | 50 mg tablet | [...] + + | UNABLE TO FIND | [place] eye drops: 1 | | 0 | [...]
--- OUTSIDE RECORDS SUMMARY | ~2019-01-09 | XMS | Encounter Summary ---
Demographics + + + | Address | [address] | | | [place] [address] | + + + | Home Phone | | + + + | Preferred Language | Unknown | + + + | Marital Status | Single | + + + | Hindu Affiliation | Unknown | + + + [...] Team Providers + +------+ + | Care Biology Intern Name | Role | Phone | + +------+ + PCP | Unavailable | + +------+ + Encounter Details +--------+ + + + + | Date | Type | Department | Care Team | Description | +--------+ + + + + | 05/14/ | [facility] | | | | | 2010 | Document-Sc | | | | | [...]
--- OUTSIDE RECORDS SUMMARY | ~2019-01-09 | XMS | Encounter Summary ---
Demographics + + + | Address | [address] | | | [place] [address] | + + + | Home Phone [...] Team Providers + +------+ + | Care Food And Drug Research Scientist Name | Role | Phone | + +------+ + PCP | Unavailable | + +------+ + Encounter Details +--------+ + + + + | Date | Type | Department | Care Team | Description | +--------+ + + + + | 07/11/ | Results | | Other, Faculty | | | 2006 | Only | | [phone] | | +--------+ + + + + [...] + + | DERMATOPATHOLOGY(WET | Routin | 07/11/2005 | | Results for this | | [facility]) | e | | | procedure are in the | | | | | | results section. | + +--------+ + + + documented in this encounter Results DERMATOPATHOLOGY(WET [facility]) (07/11/2005) + + + + + + | Component | Value | Ref Range | Performed | Pathologist | | | | | At | Signature | + + + + + + | DERMATOPATH | SOURCE OF SPECIMEN:A | | | | | OLOGY(WET | FIRST TISSUE LEVEL IV | | | | | MNT) | [address] CLINICAL | | | | | | DESCRIPTION:4mm punch, | | | | | | trunk, lt. upper arm, | | | | | | generalized nonpruritic | | | | | | dark pink macularrash, | | | | | | pt. has had 4 episodes | | | | | | in 4yrs., assoc. w/viral | | | | | | prodrome, viral | | | | | | vsurticarial exanthem | | | | | | GROSS DESCRIPTION:Left | | | | | | upper arm (bottle), | | | | | | trunk (requisition), | | | | | | punch, 0.4 x 0.2cm, | | | | | | bisected. MICROSCOPIC | | | | | | DESCRIPTION:There is a | | | | | | sparse superficial | | | | | | perivascular and | | | | | | interstitial, | | | | | | mixedinfiltrate of | | | | | | eosinophils, | | | | | | neutrophils, and | | | | | | occasional lymphocytes. | | | | | | DIAGNOSIS:URTICARIA.NOTE | | | | | | : The absence of | | | | | | vacuolar change and a | | | | | | superficial | | | | | | lymphocyticinfiltrate | | | | | | mitigates against | | | | | | conventional viral | | | | | | exanthems. | | | | | | TAMMY/jyi07/14/05Rendering | | | | | | Diagnostician: Alex | | | | | | Sarina Zamora Jr., | | | | | | MAxelPathologistElectroni | | | | | | marlyn Signed 07/14/2005 | | | | + + + + + + + + | Specimen | + + | | + + + + + | Narrative | Performed At | + + + | Ordered by Marino Ugalde | | + + + + + + + + | Performing | Address | City/State/Zipcode | Phone Number | | Organization | | | | + + + + + | [facility] | [address] | [place] [address] | | | DERMATOPATHOLOGY | [address] | | | + + + + + documented in this encounter Visit Diagnoses Not on filedocumented in this encounter"
--- OUTSIDE RECORDS SUMMARY | ~2019-01-09 | XMS | Encounter Summary ---
Demographics + + + | Address | [address] | | | [place] [address] | + + + | Home Phone | | + + + | Preferred Language | Unknown | + + + | Marital Status | Single | + + + | Islam Affiliation [...] Team Providers + +------+ + | Care Self Propelled Dredge Operator Name | Role | Phone | [...]
--- OUTSIDE RECORDS SUMMARY | ~2019-01-09 | XMS | Encounter Summary ---
Demographics + + + | Address | [address] | | | [place] [address] | + + + | Home Phone | | + + + | Preferred Language | Unknown | + + + | Marital Status | Single | + + + | Anabaptism Affiliation | Unknown | + + + [...] Team Providers + +------+ + | Care Tugboat Engineer Name | Role | Phone | + [...]
--- OUTSIDE RECORDS SUMMARY | ~2019-01-09 | XMS | Encounter Summary ---
Demographics + + + | Address | [address] | | | [place] [address] | + + + | Home Phone [...] Team Providers + +------+ + | Care Top Dyeing Machine Loader Name | Role | Phone | + +------+ + PCP | Unavailable | + +------+ + Encounter Details +--------+ + + + + | Date | Type | Department | Care Team | Description | +--------+ + + + + | 07/11/ | Results | | Other, Faculty | | | 2006 | Only | | [phone] | | +--------+ + + + + [...] | | | | | MNT) | [address] CLINICAL | | | | | | [...] + + | [facility] | [address] | [place] [address] | | | DERMATOPATHOLOGY | [address] | | | + + + + + documented in this encounter Visit Diagnoses Not on filedocumented in this encounter"
--- OUTSIDE RECORDS SUMMARY | ~2019-01-09 | XMS | Encounter Summary ---
Demographics + + + | Address | [address] | | | [place] [address] | + + + | Home Phone | | + + + | Preferred Language | Unknown | + + + | Marital Status | Single | + + + | Sikh Affiliation [...] Team Providers + +------+ + | Care Dry Cleaning Attendant Name | Role | Phone | + +------+ + PCP | Unavailable | + +------+ + Encounter Details +--------+ + + + + | Date | Type | Department | Care Team | Description | +--------+ + + + + | 04/28/ | Results | | Other, Faculty | | | 1999 | Only | | [phone] | | +--------+ + + + + [...] + + | SENT TO | DNA Lab:[facility] 5-6288 | | [facility] | | | | [...] | + + + + + | [facility] DEPARTMENT OF | [address] | [place] [address] | | | PATHOLOGY | [address] | | | + + + + + | [facility] DEPARTMENT OF | [address] | [place] [address] | | | PATHOLOGY | [address] [...] | | | | | MNT) | [address] CLINICAL | | | | | | [...] SE | | | | | | [facility], [place] | | | | | | [id number] | | | | | | Diagnostician: [...] IV | | | | | | [address] | | | | + + + [...] + + | [facility] | [address], [address] | [place] [address] | | | DERMATOPATHOLOGY | [address] | | | + + + + + documented in this encounter Visit Diagnoses Not on filedocumented in this encounter"
--- OUTSIDE RECORDS SUMMARY | ~2019-01-09 | XMS | Encounter Summary ---
Demographics + + + | Address | [address] | | | [place] [address] | + + + | Home Phone [...] Author + + + | Author | [facility] | + + + | Organization | [facility] | + + + | Address | Unknown | + + + | Phone | Unavailable | + + + Support + + +---------+ + | Name | Relationship | Address | Phone | + + +---------+ + | None None | ECON | Unknown | Unavailable | + + +---------+ + Care Team Providers + +------+ + | Care Scratch Polisher Name | Role | Phone | + +------+ + PCP | Unavailable | + +------+ + Encounter Details +--------+ + + + + | Date | Type | Department | Care Team | Description | +--------+ + + + + | 10/06/ | Documentati | [facility] | Clinic, Oncology | | | 2005 | on | [place] at | | | | | | [place] [address] | | | | | | [address] | | | | | | [place], [place] | | | | | | [address] | | | | | | [phone] | | | +--------+ + + + [...]
--- OUTSIDE RECORDS SUMMARY | ~2019-01-09 | XMS | Encounter Summary ---
Demographics + + + | Address | [address] | | | [place] [address] | + + + | Home Phone [...] Author | [facility] | | | and [place] | + + + | Organization | [facility] | | | and [place] | + + + | Address | Unknown | + + + | Phone | Unavailable | + + + Support + + + + + | Name | Relationship | Address | Phone | + + + + + | Kaley Zimmerman | ECON | [place] | | | | | [address] | | + + + + + Care Team Providers + +------+ + | Care Recycling Operations Manager Name | Role | Phone | + +------+ + | Seun Bojorquez MD | PCP | | + +------+ + Encounter Details +--------+ + + + + | Date | Type | Department | Care Team | Description | +--------+ + + + + | 12/20/ | [facility] | [facility] | Jacob Garcia, | | | 2018 | Encounter | MED CTR THERAPY OT | OT | | | | | ACUTE [address] | | | | | | [place] | | | | | | [address] | | | | | | [phone] | | | +--------+ + + + [...] + + | UNABLE TO FIND | Noxon eye drops: 1 | | 0 | [...]
--- OUTSIDE RECORDS SUMMARY | ~2019-01-09 | XMS | Clinical Summary ---
Demographics + + + | Address | [address] | | | [place] [address] | + + + | Home Phone | | + + + | Preferred Language | Unknown | + + + | Marital Status | Single | + + + | Pentecostalism Affiliation | Unknown | + + + | Race | Unknown | + + + | Ethnic Group | Other Race | + + + Author + + + | Author | [facility] | + + + | Organization | [facility] | + + + | Address | Unknown | + + + | Phone | Unavailable | + + + Support + + +---------+ + | Name | Relationship | Address | Phone | + + +---------+ + | None None | ECON | Unknown | Unavailable | + + +---------+ + Care Team Providers + +------+ + | Care Retirement Plan Counselor Name | Role | Phone | + +------+ + PCP | Unavailable | + +------+ + Source Comments SENAIT is fully live on both [facility] Ambulatory and [facility] InPatient.[facility] Allergies + + + + [...] | HEALTH | | esent | | [place], | | | | | | | | [place] [address] | | | | MEDICA | | [...] | | al/Fam | | 1931 | [phone] | [place] | | | huma | | | [address] ([place]) | [address] | + +--------+ +--------+ + +"
--- OUTSIDE RECORDS SUMMARY | ~2019-01-09 | XMS | Encounter Summary ---
Demographics + + + | Address | [address] | | | [place] [address] | + + + | Home Phone [...] Team Providers + +------+ + | Care Personnel Analyst Name | Role | Phone | + +------+ + PCP | Unavailable | + +------+ + Encounter Details +--------+ + + + + | Date | Type | Department | Care Team | Description | +--------+ + + + + | 12/19/ | Procedure - | Epic at [facility] | Amy | Operative Report | | 2015 | | [address] | MD Curly [address] | | | | Transcribed | [place], [place] | [place], [place] | | | | | [address] | [address] | | | | | | | [...] Note 12/11/2014 09:24 PDTTemperature | | Temporal Vjrgif28.3 DegC LOWPrimary Pain Iowohfezv4Vxmktapjui Pulse Rate61 bpmHeart | | Rate Ifqyvguwx22 bpmSystolic Blood Oaxbylek069 mmHg HIDiastolic Blood Zfjjsfwc70 | | vhZtUrL064 % Respiratory: Airway Patent. Cardiovascular: Regular rhythm. [...] | | | |12/11/2014 09:24 PDTTemperature Temporal Grivtm08.3 DegC LOWPrimary Pain Koivabksl2Xubupzz ral Pulse Rate61 bpmHeart Rate Ucsdhiiwk73 bpmSystolic Blood Kqntfqlr455 mmHg HIDiastolic B lood Vaithaez14 qpXxArY956 % | | | | | | [...]
[~2019-01-09 06:49] MED LIST: ALPHAGAN P5 M1 OPTH; CALCIUM CITRAT1 EAC8 PO; FISH OIL 1,0001 EACH PO; FOLBIC RF TABL1 EACH PO; LOSARTAN POTASS50 MG PO; SYNTHROID50 MCG PO; ZINC50 MG PO
[2019-01-09] MEDS ORDERED: CLOPIDOGREL75 MG PO (07:18)
[2019-01-09] MEDS ORDERED: FISH OIL 1,0001 EAC3 PO (07:18)
[2019-01-09] MEDS ORDERED: LOPRESSOR HCT1 EAC1 PO (07:19)
[2019-01-09] MEDS ORDERED: ATORVASTATIN CA80 MG PO (07:20)
[2019-01-09] MEDS ORDERED: LEVOTHYROXINE50 MCG PO (07:21)
[2019-01-09] MEDS ORDERED: CALCIUM500 M1 PO (07:21)
--- NOTE | 2019-01-09 20:01 | EKG ---
[facility] [address] [facility] [place] [address] Signed Sinus rhythm with 1st degree AV block Left axis deviation Inferior infarct , age undetermined Cannot rule out Anterior infarct (cited on or before 17-DEC-2018) Abnormal ECG When compared with ECG of 17-DEC-2018 20:52, No significant change was found Confirmed by JONATHAN MCCARTY MD ([id number]) on 01/09/2019 8:01:24 PM Electronically Signed By: JONATHAN MCCARTY MD 01/09/192000 PATIENT NAME: JESSE BURNETT Electrocardiogram DATE OF : [birth year] PHYSICIAN: JONATHAN MCCARTY MD REPORT #: [id number] REPORT IS CONFIDENTIAL AND NOT TO BE RELEASED WITHOUT AUTHORIZATION
--- NOTE | 2019-01-09 20:01 | EKG ---
[facility] [address] [facility] [place], [place] [address] Signed Sinus rhythm with 1st degree AV block Nonspecific ST abnormality Abnormal ECG When compared with ECG of 09-JAN-2019 07:01, (Unconfirmed) No significant change was found Confirmed by JONATHAN MCCARTY MD ([id number]) on 01/09/2019 8:01:34 PM Electronically Signed By: JONATHAN MCCARTY MD 01/09/192000 PATIENT NAME: LEXJESSE Electrocardiogram DATE OF : [birth year] PHYSICIAN: JONATHAN MCCARTY MD REPORT #: [id number] REPORT IS CONFIDENTIAL AND NOT TO BE RELEASED WITHOUT AUTHORIZATION
== END 2019-01-09 14:07 | disposition short-term general hospital (02) ==
LOC: ED 06:49
DX: I25.10 Atherosclerotic heart disease of native coronary artery without angina pectoris (principal); I11.0 Hypertensive heart disease with heart failure; I50.30 Unspecified diastolic (congestive) heart failure; E03.9 Hypothyroidism, unspecified; Z88.6 Allergy status to analgesic agent; Z79.899 Other long term (current) drug therapy; Z79.01 Long term (current) use of anticoagulants; Z95.5 Presence of coronary angioplasty implant and graft
CPT/HCPCS: 71045; 80053; 83735; 83880; 84484; 85025; 85379; 93005; 93010; 96374; 96375; 96376; 99285-25; J2060